=== PATIENT | female | born 1975 | race Caucasian/White ===

== ENCOUNTER 2019-02-07 10:19 | Outpatient (CLI) | payer OTHER, SELFPAY ==
--- NOTE | 2019-02-07 13:37 | DI.RAD_ITS ---
SYMPTOM/DIAGNOSIS: PAIN IN LEFT SHOULDER M25.512 LEFT SHOULDER: Five views. No bone or joint abnormality is identified. The soft tissues are unremarkable. IMPRESSION: Negative examination.
== END 2019-02-07 10:39 ==
PROVIDERS: PCP Family Medicine; Visit Provider Specialist/Technologist Athletic Trainer
DX: M25.512 Pain in left shoulder (principal)
CPT/HCPCS: 73030

== ENCOUNTER 2019-02-14 00:36 | Outpatient (CLI) | payer OTHER, SELFPAY ==
--- NOTE | 2019-02-14 14:29 | DI.MRI_ITS ---
SYMPTOMS/DIAGNOSIS: PAIN IN LEFT SHOULDER, M25.512 LEFT SHOULDER MRI: Axial T2 fat-sat, axial proton density and coronal T2 fat-sat, coronal proton density, sagittal T2 fat-sat and sagittal T1 pulse sequences were performed. There is no evidence of a tear involving the supraspinatus, infraspinatus, subscapularis or biceps tendons. The bony signal is intact. There is no evidence of a labral tear. SUMMARY: No evidence of an internal derangement. The study is within normal limits.
== END 2019-02-14 00:56 ==
PROVIDERS: PCP Family Medicine; Visit Provider Specialist/Technologist Athletic Trainer
DX: M25.512 Pain in left shoulder (principal)
CPT/HCPCS: 73221

== ENCOUNTER 2019-09-07 12:09 | Emergency (ER) | payer OTHER, SELFPAY ==
[2019-09-07 12:15] VITALS: BP 137/81; PULSE 72; RESP 18; TEMP 36.1; O2SAT 100
--- NOTE | 2019-09-07 12:33 | W.ED.GENAD ---
Discharge Plan Disposition Patient Disposition: HOME Condition: Fair Discharge Details Chief Complaint: Abd Prob Clinical Impression: Recurrent nephrolithiasis Primary Care Provider: Christel Hadley V ED Provider: Elmira Lopez Home Meds and New Rx's Prescriptions: New oxycodone 5 mg tablet 5 mg PO Q4H PRN (Reason: pain) Qty: 10 RF: 0 tamsulosin 0.4 mg capsule 0.4 mg PO DAILY Qty: 7 RF: 0 ondansetron 4 mg tablet,disintegrating 4 mg PO Q6H PRN (Reason: nausea and vomiting) Qty: 10 RF: 0 Continued dextroamphetamine-amphetamine [Adderall] 10 mg Tablet 10 mg PO DAILY RF: 0 naproxen 500 MG tablet 500 mg PO Q12H PRNRF: 0 Discharge Instructions Instructions: Kidney Stones (ED) Additional Instructions: Continue to encourage hydration. May use Tylenol and/or ibuprofen as needed for discomfort. You may use the Zofran as prescribed for any recurrent nausea or vomiting. You may use the oxycodone as prescribed if the Tylenol and ibuprofen are insufficient in alleviating her discomfort. Please take this only as prescribed do not drive will take this medication. The tamsulosin as prescribed to help with the passage of stone. You take this medication once daily, you may stop once the stone is passed. You will need follow-up with your primary care and urology. Please call Monday to schedule follow-up appointment. If you develop fever/chills, increased pain, increased pain with urination or other new/worsening symptoms please seek care urgently once again. Referrals: Christel Hadley MD [Primary Care Provider] - Taj Cruz MD [ [facility] STAFF PHYSICIAN] - Discharge Data Discharge Date/Time-TO BE ENTERED AT DEPARTURE: 09/07/19 15:21 Medical Decision Making Patient is a 43-year-old female presenting today with chief complaint of left lower quadrant pain. States the pain radiates up into the left flank. She reports it feels similar to when she had kidney stones historically. She denies any hematuria, dysuria, increased frequency urgency. No fevers or chills. States she vomited x4 this morning but states that this is potentially medication adverse reaction. States she did take some Tylenol with codeine to help with her discomfort and vomited shortly after this. Denies any change in her bowel habits. No vaginal discharge. No recent travel. Abdominal surgery significant for her section as well as surgical excision of stones x3. She has not been seen by urology here. On exam, patient appears nontoxic. No peritoneal findings on exam. No CVA tenderness with palpation. She does report that this point the pain is slightly improved but that it has oscillated since the onset of discomfort this morning. Concern for recurrent stone. No electrolyte abnormalities. No anion gap. Normal kidney function. She does have moderate amount of blood in her urinalysis. This is a contaminated specimen with moderate amount of the ileal cells. Trace leukocyte esterase and negative nitrite. Again, is denying any symptoms of urinary tract infection, is been afebrile. I do not concern for infectious stone point. FINDINGS: 1.3 cm stone in the proximal left ureter. Moderate dilatation of the left intrarenal collecting system consistent with obstructive uropathy. Mild dilatation of the right intrarenal collecting system without a specific obstructing process. Bilateral nonobstructing nephrolithiasis. Urinary bladder unremarkable with no significant postvoid residual. IMPRESSION: 1. Findings consistent with a proximal left ureteral stone resulting in obstruction of the left kidney. 2. Additional nonobstructing bilateral nephrolithiasis. Discussed these findings with the patient. Advised that she will need follow-up with urologist. Her pain is well managed at the time with IV Toradol. However, she is requesting medication to take home in the event pain spikes once again. She is able to tolerate p.o. intake time. We will place the patient on Flomax and have asked that she follow-up closely with urology. Patient may need intervention given the size of the stone. She has had these more times historically. We also discussed trying to determine the type of the stone and will send her home with a strainer. She believes that she may have done this historically but is unclear as where the results of this test would be. She was given strict return precautions, particular signs of infection and she will return with any new or worsening symptoms. I was able to consult with Dr. Cruz who agreed with the above plan advised that he will see promptly beginning of the week. HPI General Mode of arrival: ambulatory. Date/Time Provider Initiated Documentation: 09/07/19 12:33. Limitations to Documentation: no limitations. Information obtained by: patient and RN notes reviewed. History of Present Illness 43 year old F presents to the emergency department with the chief complaint of Right-sided flank pain, described as moderate and similar to prior episodes (Feels similar to previous episodes of nephrolithiasis), with intensity rated at 7. Quality is described as aching, and is localized to the back. Patient abdomen. Patient started experiencing this hour(s) and it has been constant. No relieving factors improve symptom(s), No exacerbating factors reported . Patient notes loss of appetite and nausea/vomiting; denies fever/chills. Patient did receive the following treatments prior to arrival, none Related Data Home Medications Medication Instructions Recorded Confirmed dextroamphetamine-amphetamine 10 mg PO DAILY 09/07/19 09/07/19 [Adderall] naproxen 500 mg PO Q12H PRN 09/07/19 09/07/19 ondansetron 4 mg PO Q6H PRN #10 tab 09/07/19 oxycodone 5 mg PO Q4H PRN #10 tab 09/07/19 tamsulosin 0.4 mg PO DAILY #7 cap 09/07/19 Previous Rx's Medication Instructions Recorded ondansetron 4 mg PO Q6H PRN #10 tab 09/07/19 oxycodone 5 mg PO Q4H PRN #10 tab 09/07/19 tamsulosin 0.4 mg PO DAILY #7 cap 09/07/19 Allergies Allergy/AdvReac Type Severity Reaction Status Date / Time codeine AdvReac VOMITTING Unverified 09/07/19 13:25 SHRIMP Allergy HIVES, Uncoded 09/07/19 13:25 SWELLING General Stated Complaint: Abd Prob ISRAEL: 3 Review of Systems Constitutional Constitutional: Reports as per HPI, Denies chills, Denies fatigue, Denies fever(s) and Denies headache(s) ENT Ears, Nose, Mouth, and Throat: Denies headache(s) Cardiovascular Cardiovascular: Reports as per HPI, Denies chest pain and Denies dyspnea Respiratory Respiratory: Reports as per HPI, Denies cough and Denies dyspnea Gastrointestinal Gastrointestinal: Reports as per HPI Genitourinary Genitourinary: Reports as per HPI, Denies abnormal vaginal bleeding, Denies hematuria, Denies urinary frequency, Denies dysuria, Denies pelvic pain, Reports flank pain, Denies urinary incontinence, Denies urinary hesitancy, Denies urinary urgency and Denies vaginal discharge Musculoskeletal Musculoskeletal: Reports as per HPI and Denies back pain Integumentary/Breasts Skin/Breast: Reports as per HPI and Denies rash Neurologic Neurologic: Reports as per HPI and Denies headache(s) Endocrine Endocrine: Denies fatigue [facility] Medical History Renal calculi (Chronic) Surgical History H/O lithotripsy (Acute) History of renal stent (Acute) Previous section (Chronic) Social History Smoking/Tobacco Use Status: Former Tobacco Use Alcohol Intake: current Alcohol Intake frequency: a few times a month Drug use: Occasionally Substance use type: marijuana Do you feel safe at home: Yes Do you feel safe in your relationship?: Yes Exam Const General: cooperative, healthy appearing, comfortable, no acute distress and well developed Nutritional Appearance: average body habitus and well nourished Orientation: alert and awake HENWY Head: normal to inspection Mouth: moist mucous membranes Resp Effort & Inspection: normal respiratory effort, able to speak in complete sentences and no respiratory distress Auscultation: clear to auscultation bilaterally, no rales, no rhonchi and no wheezes Cardio Rate: regular rate Rhythm: regular rhythm Heart Sounds: S1 normal and S2 normal GI Inspection: normal to inspection and no abdominal wall ecchymosis Palpation: soft, no hepatosplenomegaly, not firm, no guarding and nontender Percussion: normal to percussion Auscultation: normal bowel sounds Back/Spine/Pelvis Back: no CVA tenderness Skin General skin exam: no rashes or lesions noted Trauma: no lacerations or abrasions Neuro General: alert and awake Cognition: normal cognition Speech: speech normal Gait: normal gait Psych Appearance: grossly normal and well kempt Mental Status: mental status grossly normal Speech and Movement: speech and movement normal Course Vital Signs Vital signs: Vital Signs Temperature 36.1 C L 09/07/19 12:15 Pulse 72 09/07/19 12:15 Respiratory Rate 18 09/07/19 12:15 Blood Pressure 137/81 09/07/19 12:15 Pulse Oximetry 100 09/07/19 12:15 Temperature 36.1 C L 09/07/19 12:15 Temperature Source Skin 09/07/19 12:15 Pulse 72 09/07/19 12:15 Respiratory Rate 18 09/07/19 12:15 Blood Pressure 137/81 09/07/19 12:15 Blood Pressure Position Sitting 09/07/19 12:15 Pulse Oximetry 100 09/07/19 12:15 Oxygen Delivery Method Room Air 09/07/19 12:15 Oxygen Flow Rate 0 09/07/19 12:15 Pain Level 7 09/07/19 12:15 Lab/Test Results Lab/Test Results: POC- Test(urine) Negative
[2019-09-07 12:35] LABS: Bilirubin Negative (Negative); Blood Moderate (Negative); Clarity Cloudy (Clear); Glucose Negative (Negative); Ketones Negative (Negative); Leukocyte Esterase Trace (Negative); Nitrite Negative (Negative); Specific Gravity 1.015 (1.005-1.025); Urobilinogen 0.2 EU/dL (Up TO 0.2); pH 8.5 (5-8)
--- NOTE | 2019-09-07 12:44 | DI.US_ITS ---
EXAM: US RENAL CLINICAL HISTORY: left flank/LLQ pain, hx of stones. TECHNIQUE: Ultrasound performed using standard protocol. COMPARISON: OB US 2-3 TRIMESTER TRANSABD*P from 10/07/2013 FINDINGS: Renal ultrasound performed according to the usual protocol. Urinary bladder is unremarkable in appea kathy with pre and post void volumes 50 cc and 0 cc respectively. Lower pole of the right kidney con tains a 3 millimeter in diameter probable stone with 20 a larger fact and posterior acoustic shadowin g. Left kidney is hydronephrotic and there is a 19 millimeter diameter UPJ stone noted on the left. Non obstructing lower pole left renal calculus noted. IMPRESSION: Obstructing 19 millimeter in diameter left UPJ stone with resultant moderate left hydronephrosis Bilateral nonobstructing renal calculi also noted.
[2019-09-07] MEDS: Normal Saline 1,000 ML 1000 ML IV (12:58)
[2019-09-07] MEDS: Ketorolac 30 MG/ML VIAL IVP (12:59)
[2019-09-07] MEDS: Ondansetron 4 MG/2 ML VIAL IVP (12:59)
[2019-09-07] MEDS: Normal Saline Flush 10 ML SYR IVP (13:00)
[2019-09-07 13:02] LABS: Abs Immature Grans 0.02 k/cumm (0.0-0.09); Absolute Eosinophil Count 0.03 k/cumm (0.0-0.7); Absolute Lymphocyte Count 1.72 k/cumm (1.2-3.4); Basophils % 0.1; Eosinophils % 0.2; HCT 42.1 % (36.0-46.0); HGB 14.2 g/dL (12.0-15.5); Immature Grans % 0.1; Lymphocytes % 12.4; Mean Corp. HGB Concentration 33.7 g/dL (32.0-36.0); Mean Corpuscular Hemoglobin 29.3 pg (27.0-33.0); Mean Corpuscular Volume 86.8 fL (80-95); Mean Platelet Volume 10.4 fL (8.0-11.0); Monocytes % 5.8; Neutrophils % 81.4; Platelet Count 366 x1000/uL (130-400); RBC 4.85 m/cumm (4.00-5.20); RBC Distribution Width 12.7 % (11.7-14.6); White Blood Cell Count 13.85 k/cumm (4.4-10.8)
[2019-09-07 13:07] LABS: Absolute Basophil Count 0.01 k/cumm (0.0-0.2); Absolute Neutrophil Count 11.27 k/cumm (1.2-6.7)
[2019-09-07 13:12] VITALS: BP 121/65; PULSE 66; TEMP 36.4; O2SAT 100
[2019-09-07 13:18] LABS: ALT 17 U/L (14-59); AST 19 U/L (15-37); Albumin 4.2 g/dL (3.4-5.0); Alkaline Phosphatase 66 U/L (46-116); Anion Gap 10.2 mmol/L (3-11); BUN 17 mg/dL (7-18); Bilirubin, Total 0.5 mg/dL (0.2-1.0); CO2 27.8 mmol/L (21.0-32.0); CREATININE 0.81 mg/dL (0.55-1.02); Calcium 8.7 mg/dL (8.5-10.1); Chloride 103 mmol/L (98-107); Glucose 105 mg/dL (70-100); Potassium 3.7 mmol/L (3.5-5.1); Sodium 141 mmol/L (136-145); Total Protein 7.7 g/dL (6.4-8.2)
[2019-09-07 13:22] LABS: Bacteria Few HPF (Negative); C & S Indicated? No/Sq. Contamination; Casts Negative LPF (Negative); Crystals Moderate Amorphous HPF (Negative); Epithelial Cells Moderate HPF (Negative); Mucus Negative (Negative); WBC 0-2 HPF (0-5)
--- NOTE | 2019-09-07 15:00 | DI.VRAD_ITS ---
PROCEDURE INFORMATION: Exam: US Retroperitoneal Complete. Exam date and time: 09/07/2019 2:16 PM Clinical history: 43 years old, female; Other: Left flank and llq pain. ; Patient HX: HX of kidney stones. TECHNIQUE: Imaging protocol: Real-time ultrasound of the retroperitoneum with image documentation. Complete exam. COMPARISON: OB US 2-3 TRIMESTER TRANSABD*P 10/07/2013 3:04 PM FINDINGS: 1.3 cm stone in the proximal left ureter. Moderate dilatation of the left intrarenal collecting system consistent with obstructive uropathy. Mild dilatation of the right intrarenal collecting system without a specific obstructing process. Bilateral nonobstructing nephrolithiasis. Urinary bladder unremarkable with no significant postvoid residual. IMPRESSION: 1. Findings consistent with a proximal left ureteral stone resulting in obstruction of the left kidney. 2. Additional nonobstructing bilateral nephrolithiasis. Dictated and Authenticated by: Obdulio Frias MD. Ordering:OSBALDO Ku MD
[2019-09-07 15:20] VITALS: BP 127/71; PULSE 72; RESP 20; TEMP 35.1; O2SAT 100
--- NOTE | 2019-09-08 00:19 | NUR.NOTE ---
Nursing Note: faxed referal to urology 09/07/19
== END 2019-09-07 15:21 | disposition home or self-care (01) ==
PROVIDERS: Emergency Provider Physician Assistant; PCP Family Medicine
DX: N20.1 Calculus of ureter (principal); N20.0 Calculus of kidney; Z87.442 Personal history of urinary calculi
CPT/HCPCS: 76770; 80053; 96361; 96374; 96375; 99284; 81003; 81015; 85025; J1885; J2405

== ENCOUNTER 2019-09-19 13:45 | Outpatient (CLI) | payer OTHER, SELFPAY ==
[2019-09-19 14:12] LABS: Bilirubin Negative (Negative); Blood Moderate (Negative); Clarity Clear (Clear); Glucose Negative (Negative); Ketones 80 mg/dL (Negative); Leukocyte Esterase Large (Negative); Nitrite Negative (Negative); Specific Gravity 1.015 (1.005-1.025); Urobilinogen 0.2 EU/dL (Up TO 0.2)
[2019-09-19 14:22] LABS: Bacteria Moderate HPF (Negative); C & S Indicated? Yes; Casts Negative LPF (Negative); Crystals Negative HPF (Negative); Epithelial Cells Moderate HPF (Negative); Mucus Negative (Negative); Other Cells Rare Renal (Negative); WBC >50 HPF (0-5)
== END 2019-09-19 14:05 ==
PROVIDERS: PCP Family Medicine; Visit Provider Family Medicine
DX: R10.32 Left lower quadrant pain (principal)
CPT/HCPCS: 81003; 81015; 87086

== ENCOUNTER 2019-09-19 16:48 | Inpatient (IN) | payer OTHER, SELFPAY ==
[2019-09-19 16:50] VITALS: BP 134/73; PULSE 113; RESP 16; TEMP 37.5; O2SAT 100
--- NOTE | 2019-09-19 16:59 | DI.CT_ITS ---
EXAM: CT ABDOMEN PELVIS W CLINICAL HISTORY: known L kidney stone, LLQ pain, now new fever TECHNIQUE: COMPARISON: No exams were available for comparison FINDINGS: CT examination of the abdomen pelvis was performed with bolus infusion of 100 cc of Omnipaque 350. I mages obtained through the lung bases are unremarkable. Incidental note is made of bilateral spondyl olysis at L5. There is also small lucent lesion of T12 vertebral body with mildly sclerotic well-def ined rim consistent with benign process likely hemangioma. Liver spleen and pancreas appear normal. No biliary dilatation. Gallbladder is CT normal with minim al pericholecystic fluid. Minimal free fluid noted in the pelvis as well. Abdominal aorta is of normal diameter and no major vascular abnormality is seen. No significant abdo laura wall hernia seen. No abdominal or pelvic adenopathy. Appendix is normal. No evidence of dive rticulitis or bowel obstruction. Adrenals appear normal bilaterally. There are bilateral nonobstructing renal calculi. There is a 13 x 8 millimeter in diameter UPJ stone on the left causing obstruction with moderate to severe left hy dronephrosis. Decreased attenuation of left renal cortex noted, this may be secondary to pyelonephri tis. Perinephric stranding and periureteral stranding noted on left. There enlargement the left kid ana cristina compared to the right. Urinary bladder wall is mildly thickened, question cystitis. No addition al obstructing calculi seen. Vaginal tampon noted in place. Deck Specialist structures otherwise unremarkable. IMPRESSION: 13 millimeter in diameter left UPJ stone causing moderate to severe hydro nephrosis with findings wor risome for obstructive pyelonephritis as well. Nonobstructive renal calculi noted bilaterally.
--- NOTE | 2019-09-19 17:01 | ED.GENADUL_ITS ---
Discharge Plan Disposition Patient Disposition: [facility] INPATIENT Condition: Stable Discharge Details Chief Complaint: FlankPain Clinical Impression: Urinary tract infection, Kidney stones, SIRS (systemic inflammatory response syndrome) Primary Care Provider: Christel Hadley V ED Provider: Sven Mayberry Home Meds and New Rx's Prescriptions: No Action dextroamphetamine-amphetamine [Adderall] 10 mg Tablet 10 mg PO DAILY RF: 0 naproxen 500 MG tablet 500 mg PO Q12H PRNRF: 0 oxycodone 5 mg tablet 5 mg PO Q4H PRN (Reason: pain) Qty: 10 RF: 0 tamsulosin 0.4 mg capsule 0.4 mg PO DAILY Qty: 7 RF: 0 ondansetron 4 mg tablet,disintegrating 4 mg PO Q6H PRN (Reason: nausea and vomiting) Qty: 10 RF: 0 Medical Decision Making This is a very pleasant 43-year-old female no significant past medical history except for tubal ligation who presents today for evaluation of left sided flank and abdominal pain. 10 days ago the patient was seen and assessed, she had a CT scan showing a 1.3 cm kidney stone, at the proximal ureter. Since then she has had continued pain that is not alleviated. Over the last 24 hours she has also had fever and chills. She denies any pyuria, vaginal discharge, hematuria or increase in urinary frequency. She does admit to notable malaise. Physical exam demonstrates mild to moderate left CVA tenderness, mild left lower quadrant tenderness. No other significant abnormalities. No vaginal complaints or pelvic complaints. Signs and symptoms are certainly concerning for an infection in conjunction with her kidney stone. With a size of 1.3 cm, I doubt that it would be moving and if it would be moving it would be moving very slowly. We will start antibiotics, 2 g of cefepime, evaluate for evidence of significant infection, reimage, rehydrate and reassess. 6:20 PM Patient's laboratory work-up is returned, notable elevation in her white count at 17, lactate normal. Moderate left shift. Electrolytes stable. Renal function stable. Urinalysis clearly demonstrates evidence of infection. Still pending formal CT scan results at this time, however personal evaluation demonstrates notable fat stranding over the left kidney, the patient's 1.3 cm kidney stone seems to have not moved much at all if any. Concern for urinary infection in conjunction with stone. I contacted Dr. Cruz and discussed the case with him, he agrees on the need for stenting and removal. He recommends admission antibiotics and he will send in the morning. N.p.o. after midnight. We will contact the hospitalist for admission. 6:30 PM I spoke with the hospitalist , he agrees with the assessment and plan. I have offered to place admission orders. Still pending CT scan results formally. I have extensively reviewed the treatment plan with the patient. I have addressed all patient concerns at this time. I have also discussed the plan with the admitting physician and they agree with the current assessment and plan and have agreed to assume responsibility for the patient. All parties demonstrate verbal understanding and agreement with our assessment and plan at this time. 6:[address] scan results have returned, no evidence of abscess, clear evidence of evidence of pyelonephritis. However the CT scan results also include a litany of additional information, including mild periportal edema of the liver, which may be attributed to the pyelonephritis, of note there is no right upper quadrant pain whatsoever and her symptoms are clinically inconsistent with cholecystitis. FINDINGS: Lungs: Atelectasis or scarring at the lung bases. Trace left pleural effusion, series 4 image 11. Liver: Mild periportal edema. Gallbladder and bile ducts: No gallstones identified. Trace amount of pericholecystic fluid, series 6 image 27. Pancreas: Normal. No ductal dilation. Spleen: Normal. No splenomegaly. Adrenals: Bulky appearance to the left adrenal gland. Kidneys and ureters: Bilateral nonobstructive renal calculi. Mild right hydronephrosis with no right ureteral calculi seen. Severe left-sided hydronephrosis with a 1.3 cm calculus near the left UPJ. There is perinephric/periureteral stranding and an overall hypodense appearance to the left kidney. These findings could be seen secondary to infection or a component of renal malfunction. This stranding extends inferiorly along the left retroperitoneal musculature. Stomach and bowel: No obstruction. Appendix: No evidence of appendicitis. Intraperitoneal space: See above. No free air. Small amount of free fluid in the pelvis. Vasculature: Unremarkable. No abdominal aortic aneurysm. Lymph nodes: Unremarkable. No enlarged lymph nodes. Bladder: The urinary bladder wall prominence. This can be seen with infection or under distention. Reproductive: Heterogeneous uterus. Incidental note is made of a tampon. Bones/joints: Skeletal degenerative changes. Bilateral L5 pars defects. Possible small hemangioma in vertebral body T12, series 7 image 65. No acute fracture. Soft tissues: Tiny fat containing umbilical hernia. IMPRESSION: 1.Severe left-sided hydronephrosis with a 1.3 cm calculus near the left UPJ. There is perinephric/periureteral stranding and an overall hypodense appearance to the left kidney. These findings could be seen secondary to infection/pyelonephritis or a component of renal malfunction. This stranding extends inferiorly along the left retroperitoneal musculature. 2. Urinary bladder wall prominence. This can be seen with infection or under distention. 3.Bilateral nonobstructive renal calculi. Mild right hydronephrosis with no right ureteral calculi seen. 4. Mild periportal edema in the liver. This is a nonspecific finding that can be seen with pyelonephritis, acute hepatitis, or secondary cardiac congestion. There is a small amount of pericholecystic fluid which may be related. Correlation with any concern for cholecystitis suggested. 5. Heterogeneous appearance to the uterus which can be seen normally or with infection. Trace left pleural effusion. Small amount of free fluid in the pelvis. Other findings/details as above. Thank you for allowing us to participate in the care of your patient. Dictated and Authenticated by: Mallory Garcia MD [facility] General Date/Time Provider Initiated Documentation: 09/19/19 16:52 . [facility] Narrative: This is a pleasant 43-year-old female with no significant past medical history who presents today for evaluation of left lower abdominal/flank pain. 10 days ago the patient was seen and assessed here. At that time CT scan showed evidence of a 1.3 cm kidney stone on the left. She was otherwise well- appearing, elected to go home, but since then has had continued pain on the left-hand side, in conjunction with development of fever over the last 24 hours. She states that she continues to feel poorly, and has felt notably chilled over the last 24 hours as well. Pain is aching in nature. No radiation to the groin. Mostly located in the left flank. She denies any nausea vomiting or diarrhea. She has been taking Advil daily secondary to the pain. Past surgical history is positive for tubal ligation and 2 C-sections. She has no other complaints at this time. She denies any dysuria, hematuria, vomiting, diarrhea, vaginal discharge, history of STDs. Related Data Home Medications Medication Instructions Recorded Confirmed dextroamphetamine-amphetamine 10 mg PO DAILY 09/07/19 09/07/19 [Adderall] naproxen 500 mg PO Q12H PRN 09/07/19 09/07/19 ondansetron 4 mg PO Q6H PRN #10 tab 09/07/19 oxycodone 5 mg PO Q4H PRN #10 tab 09/07/19 tamsulosin 0.4 mg PO DAILY #7 cap 09/07/19 Previous Rx's Medication Instructions Recorded ondansetron 4 mg PO Q6H PRN #10 tab 09/07/19 oxycodone 5 mg PO Q4H PRN #10 tab 09/07/19 tamsulosin 0.4 mg PO DAILY #7 cap 09/07/19 Allergies Allergy/AdvReac Type Severity Reaction Status Date / Time codeine AdvReac VOMITTING Unverified 09/19/19 16:57 SHRIMP Allergy HIVES, Uncoded 09/19/19 16:57 SWELLING General Stated Complaint: FlankPain ISRAEL: 3 Review of Systems All systems reviewed & are unremarkable except as noted in HPI and below PFSH Social History Smoking/Tobacco Use Status: Former Tobacco Use Alcohol Intake: current Alcohol Intake frequency: a few times a month Drug use: Occasionally Substance use type: marijuana Do you feel safe at home: Yes Do you feel safe in your relationship?: Yes Exam Narrative Exam Narrative: 1.Const: Well-nourished, Well-developed, appearing stated age 2.Eyes: PERRL, no conjunctival injection, and symmetrical lids. 3.ENT: Atraumatic external nose and ears. Moist MM. Neck: Symmetric, trachea midline, No thyromegaly. 4.CVS: +S1/S2, No murmurs or gallops. Peripheral pulses 2+ and equal in all extremities. Brisk capillary refill in all extremities. 5.RESP: Unlabored respiratory effort. Clear to auscultation bilaterally. No wheezes rales or rhonchi 6.GI: Soft, notable left CVA tenderness. Negative obturator and psoas sign. No pain at McBurney's point, negative Agarwal sign. Mild left lower quadrant tenderness on palpation. No suprapubic tenderness, no pelvic pain. No guarding or rebound. 7.MSK: Normocephalic/Atraumatic, Extremities w/o deformity or ttp No cyanosis or clubbing, Normal movement of all extremities 8.Skin: Warm, Dry. No rashes or lesions. 9.Neuro: emergency department physician II-XII grossly intact. Sensation grossly intact, no focal neurologic deficits. 10.Psych: (AAO) x3. Appropriate mood and affect Course Vital Signs Vital signs: Vital Signs Temperature 37.5 C 09/19/19 16:50 Pulse 113 H 09/19/19 16:50 Respiratory Rate 16 09/19/19 16:50 Blood Pressure 134/73 09/19/19 16:50 Pulse Oximetry 100 09/19/19 16:50 Temperature 37.5 C 09/19/19 16:50 Temperature Source Skin 09/19/19 16:50 Pulse 113 H 09/19/19 16:50 Respiratory Rate 16 09/19/19 16:50 Respiratory Effort 09/19/19 16:56 Blood Pressure 134/73 09/19/19 16:50 Pulse Oximetry 100 09/19/19 16:50 Oxygen Delivery Method Room Air 09/19/19 16:50 Oxygen Flow Rate 0 09/19/19 16:50 Pain Level 4 09/19/19 16:55 Lab/Test Results Lab/Test Results: 09/19/19 16:59 Blood Blood Culture - Pending 09/19/19 16:59 Blood Blood Culture - Pending
[2019-09-19] MEDS: Normal Saline 1,000 ML 1000 ML IV (17:15)
[2019-09-19 17:16] LABS: Bilirubin Negative (Negative); Blood Small (Negative); Clarity Clear (Clear); Glucose Negative (Negative); Ketones 40 mg/dL (Negative); Leukocyte Esterase Large (Negative); Nitrite Negative (Negative); Urobilinogen 0.2 EU/dL (Up TO 0.2)
[2019-09-19 17:27] LABS: Abs Immature Grans 0.05 k/cumm (0.0-0.09); Absolute Lymphocyte Count 1.86 k/cumm (1.2-3.4); Absolute Monocyte Count 1.45 k/cumm (0.11-0.7); Basophils % 0.1; Eosinophils % 0.4; HCT 35.1 % (36.0-46.0); HGB 11.7 g/dL (12.0-15.5); Immature Grans % 0.3; Lymphocytes % 10.9; Mean Corp. HGB Concentration 33.3 g/dL (32.0-36.0); Mean Corpuscular Hemoglobin 28.5 pg (27.0-33.0); Mean Corpuscular Volume 85.4 fL (80-95); Mean Platelet Volume 9.4 fL (8.0-11.0); Monocytes % 8.5; Neutrophils % 79.8; Platelet Count 438 x1000/uL (130-400); RBC 4.11 m/cumm (4.00-5.20); RBC Distribution Width 12.1 % (11.7-14.6); White Blood Cell Count 17.07 k/cumm (4.4-10.8)
[2019-09-19] MEDS: Ketorolac 15 MG/ML VIAL IVP (17:27)
[2019-09-19 17:29] LABS: Lactate 0.8 mmol/L (0.6-1.4)
[2019-09-19] MEDS: CEFEPIME 2 GM in Normal Saline 100 ML IVPB (17:29)
[2019-09-19 17:35] LABS: Bacteria Few HPF (Negative); Crystals Negative HPF (Negative); Epithelial Cells Few HPF (Negative); Mucus Negative (Negative); Other Cells Rare Renal (Negative); WBC >50 HPF (0-5)
[2019-09-19 17:36] LABS: Absolute Basophil Count 0.02 k/cumm (0.0-0.2); Absolute Eosinophil Count 0.07 k/cumm (0.0-0.7); Absolute Neutrophil Count 13.62 k/cumm (1.2-6.7)
[2019-09-19 17:36] LABS: C & S Indicated? C&S Done As Ordered; Casts Negative LPF (Negative)
[2019-09-19 17:44] LABS: ALT 21 U/L (14-59); AST 15 U/L (15-37); Albumin 3.1 g/dL (3.4-5.0); Alkaline Phosphatase 86 U/L (46-116); Anion Gap 10.2 mmol/L (3-11); BUN 11 mg/dL (7-18); Bilirubin, Total 0.6 mg/dL (0.2-1.0); CO2 27.8 mmol/L (21.0-32.0); CREATININE 0.84 mg/dL (0.55-1.02); Calcium 8.9 mg/dL (8.5-10.1); Chloride 97 mmol/L (98-107); Glucose 90 mg/dL (70-100); Potassium 3.4 mmol/L (3.5-5.1); Sodium 135 mmol/L (136-145); Total Protein 7.9 g/dL (6.4-8.2)
[2019-09-19] MEDS: Omnipaque 350 MG/ML 100 ML BTL IJ (17:56)
[2019-09-19 18:09] VITALS: BP 127/69; PULSE 102; RESP 16; TEMP 37.1; O2SAT 97
[2019-09-19 18:39] VITALS: BP 121/71; PULSE 98; RESP 14; TEMP 37; O2SAT 97
--- NOTE | 2019-09-19 18:39 | DI.VRAD_ITS ---
PROCEDURE INFORMATION: Exam: CT Abdomen And Pelvis With Contrast Exam date and time: 09/19/2019 6:02 PM Clinical history: 43 years old, female; Abdominal pain; Patient HX: Known L kidney stone, llq pain, new fever TECHNIQUE: Imaging protocol: Computed tomography of the abdomen and pelvis with intravenous contrast. COMPARISON: US RENAL 09/07/2019 1:42 PM FINDINGS: Lungs: Atelectasis or scarring at the lung bases. Trace left pleural effusion, series 4 image 11. Liver: Mild periportal edema. Gallbladder and bile ducts: No gallstones identified. Trace amount of pericholecystic fluid, series 6 image 27. Pancreas: Normal. No ductal dilation. Spleen: Normal. No splenomegaly. Adrenals: Bulky appearance to the left adrenal gland. Kidneys and ureters: Bilateral nonobstructive renal calculi. Mild right hydronephrosis with no right ureteral calculi seen. Severe left-sided hydronephrosis with a 1.3 cm calculus near the left UPJ. There is perinephric/periureteral stranding and an overall hypodense appearance to the left kidney. These findings could be seen secondary to infection or a component of renal malfunction. This stranding extends inferiorly along the left retroperitoneal musculature. Stomach and bowel: No obstruction. Appendix: No evidence of appendicitis. Intraperitoneal space: See above. No free air. Small amount of free fluid in the pelvis. Vasculature: Unremarkable. No abdominal aortic aneurysm. Lymph nodes: Unremarkable. No enlarged lymph nodes. Bladder: The urinary bladder wall prominence. This can be seen with infection or under distention. Reproductive: Heterogeneous uterus. Incidental note is made of a tampon. Bones/joints: Skeletal degenerative changes. Bilateral L5 pars defects. Possible small hemangioma in vertebral body T12, series 7 image 65. No acute fracture. Soft tissues: Tiny fat containing umbilical hernia. IMPRESSION: 1.Severe left-sided hydronephrosis with a 1.3 cm calculus near the left UPJ. There is perinephric/periureteral stranding and an overall hypodense appearance to the left kidney. These findings could be seen secondary to infection/pyelonephritis or a component of renal malfunction. This stranding extends inferiorly along the left retroperitoneal musculature. 2. Urinary bladder wall prominence. This can be seen with infection or under distention. 3.Bilateral nonobstructive renal calculi. Mild right hydronephrosis with no right ureteral calculi seen. 4. Mild periportal edema in the liver. This is a nonspecific finding that can be seen with pyelonephritis, acute hepatitis, or secondary cardiac congestion. There is a small amount of pericholecystic fluid which may be related. Correlation with any concern for cholecystitis suggested. 5. Heterogeneous appearance to the uterus which can be seen normally or with infection. Trace left pleural effusion. Small amount of free fluid in the pelvis. Other findings/details as above. Dictated and Authenticated by: Mallory Garcia MD. Ordering:SUSAN Machuca MD
[2019-09-19] MEDS: Normal Saline 1,000 ML 150 ML IV (18:40)
--- NOTE | 2019-09-19 19:08 | NUR.NOTE ---
pt given chicken broth Nursing Note:
[2019-09-19 19:22] VITALS: BP 121/71; PULSE 98; RESP 14; TEMP 37; O2SAT 97
--- NOTE | 2019-09-19 20:41 | HPE_ITS ---
Date of service: 09/19/19 Time of Service: 20:41 Assessment and Plan Assessment and plan (1) Pyelonephritis of left kidney: Status: Acute Assessment and plan: Aggressive IV fluids and broad-spectrum antibiotics including vancomycin and meropenem as per Up-To-Date clinical pathway as well as per recommendations from [place] antimicrobial guide. Urology consultation for cystoscopy ureteroscopy in the morning with stent placement. Continue antipyretics, NSAIDs, narcotic analgesics as needed (2) Obstructive uropathy: Status: Acute Assessment and plan: as above. NPO after midnight, continue iv fluid hydration. Urology consultation for cystoureteroscopy and ureteral stent placement in the a.m. Obtain urine for stone analysis for decisions regarding future preventative treatment (3) Renal calculi: Status: Chronic Assessment and plan: As above. I recommended the patient that she discontinue her Diet Coke intake as this is a of the risk factors for future nephrolithiasis. History of Present Illness History of Present Illness Chief Complaint: Fever, chills, back pain Na rrative: 43-year-old female with past medical history of nephrolit hiasis previously treated with renal stents as well as extracorporeal shockwave lithotripsy approximately 10 years ago. Patient presented to the emergency department with acute onset of fevers that began yesterday associated with chills but no nausea or vomiting and no gross hematuria or dysuria. She was diagnosed with recurrent nephrolithiasis 12 days ago when she was seen and treated in the emergency room. She was prescribed oxycodone and Flomax and ondansetron and was referred for outpatient evaluation by urology. Findings at that time was a 1.3 cm stone in the proximal left ureter with moderate dilatation of her left intrarenal collecting system and mild dilatation of the right intrarenal without a specific obstructing process. There were additional nonobstructing bilateral nephrolithiasis. She states since September 07 she has been taking Advil couple times a day and trying to increase her water intake and she is cut out her Diet Coke intake. But she started with fever and chills yesterday along with worsening left-sided back pain with radiation into the left upper abdomen. Diagnostic work-up this evening in the emergency room included a CT scan of the abdomen and pelvis with contrast which demonstrated severe left- sided hydronephrosis with a 1.3 cm calculus near the left UPJ along with perinephric and periureteral stranding and overall hypodense appearance of the left kidney consistent with pyelonephritis. There is a prominent urinary bladder wall. Bilateral nonobstructive renal calculi are seen with mild right hydronephrosis but no right ureteral calculi. Laboratory studies showed a leukocytosis of 17,000 with a leftward shift. Urinalysis demonstrated small amount of blood along with large leukocyte esterase and greater than 50 white cells with a few bacteria. Chemistry profile showed normal renal function with a BUN of 11 and creatinine 0.84 and normal transaminases. Potassium was low at 3.4. [id number] urine test was negative. Treatment in the emergency room included a liter of IV fluids along with obtaining urine and blood cultures and initiation of cefepime [address] Sven Mayberry, emergency room attending, contacted Dr. Cruz, urologist, for consultation. Dr. Cruz indicated that he would plan for cystoscopy ureterosc opy with ureteral stent in the morning. I broaden the patient's antibiotic coverage as per recommendations from the up-to-date clinical pathway for complicated UTIs including pyelonephritis with obstruction. This is also recommended by [facility] antimicrobial guide lines. Guidelines recommend inclu ding vancomycin for coverage of enterococci as well as use of a carboplatinum for coverage of ESBL Enterobacteriaceae as well as Pseudomonas. Review of Systems Narrative: Review of systems as per HPI Constitutional Constitutional: Reports chills and Reports fever(s) Eyes Eyes: Reports system reviewed and no additional complaints, except as docu ENT Ears, Nose, Mouth, and Throat: Reports system reviewed and no additional complaints, except as docu Cardiovascular Cardiovascular: Reports system reviewed and no additional complaints, except as docu Respiratory Respiratory: Reports system reviewed and no additional complaints, except as docu Gastrointestinal Gastrointestinal: Reports abdominal pain (Left upper quadrant.), Denies nausea and Denies vomiting Genitourinary Genitourinary: Denies hematuria, Reports urinary frequency, Denies difficulty voiding, Denies post void dribbling, Denies dysuria, Denies pelvic pain, Reports flank pain, Denies urinary incontinence, Denies urinary hesitancy and Denies u rinary urgency Musculoskeletal Musculoskeletal: Reports as per HPI Integumentary/Breasts Skin/Breast: Reports system reviewed and no additional complaints, except as docu Neurologic Neurologic: Reports system reviewed and no additional complaints, except as docu Psychiatric Psychiatric: Reports system reviewed and no additional complaints, except as docu Endocrine Endocrine: Reports system reviewed and no additional complaints, except as docu Hematologic/Lymphatic Hematologic/Lymphatic: Reports system reviewed and no additional complaints, except as docu Allergic/Immunologic Allergic/Immunologic: Reports system reviewed and no additional complaints, except as docu PFSH Medical History (Updated 09/19/19 @ 21:39 by Andrew Rajput) Gestational diabetes mellitus (Resolved 09/03/13) GTT: 74, 172, 171, 163 on 09/03 Renal calculi (Chronic) Supervision of other normal (Resolved 06/03/13) Surgical History (Updated 09/19/19 @ 21:04 by Andrew Rajput) H/O lithotripsy (Acute) History of renal stent (Acute) Previous section (Chronic) Status post repeat low transverse section (Resolved 11/15/13) Social History Smoking/Tobacco Use Status: Former Tobacco Use Alcohol Intake: current Alcohol Intake frequency: a few times a month Drug use: Occasionally Substance use type: marijuana Do you feel safe at home: Yes Do you feel safe in your relationship?: Yes Meds Home Medications and Allergies Home Medications Medication Instructions Recorded Confirmed Type dextroamphetamine-amphetamine 10 mg PO DAILY 09/07/19 09/19/19 History [Adderall] naproxen 500 mg PO Q12H PRN 09/07/19 09/19/19 History ondansetron 4 mg PO Q6H PRN #10 tab 09/07/19 09/19/19 Rx oxycodone 5 mg PO Q4H PRN #10 tab 09/07/19 09/19/19 Rx Allergies Allergy/AdvReac Type Severity Reaction Status Date / Time codeine AdvReac VOMITTING Unverified 09/19/19 16:57 SHRIMP Allergy HIVES, Uncoded 09/19/19 16:57 SWELLING Exam Const General: cooperative, no acute distress and well groomed Nutritional Appearance: average body habitus and well nourished Orientation: alert, awake and oriented x3 Neck Neck: normal visual inspection, full ROM, no lymphadenopathy, trachea midline and supple Thyroid: thyroid normal Carotids: normal carotid upstroke Lymphatic: no lymphadenopathy noted Chest Chest: normal inspection of the chest and normal palpation of entire chest wall Resp Effort & Inspection: normal respiratory effort and able to speak in complete sentences Auscultation: clear to auscultation bilaterally Percussion: percussion normal Cardio Jugular venous pressure: no JVD Palpation: normal PMI Rate: regular rate Rhythm: regular rhythm Heart Sounds: S1 normal, S2 normal and normal, physiologic split S2 Pulses: normal peripheral pulses GI Inspection: normal to inspection Palpation: soft, no hepatosplenomegaly and nontender Percussion: normal to percussion Auscultation: normal bowel sounds General: bladder normal to inspection, bladder normal to palpation, bimanual zelda al exam abnormal and CVA tenderness on the left Bimanual Exam- Vagina & Uterus: bladder normal to palpation Back/Spine/Pelvis Cervical Spine: normal cervical lordosis and cervical ROM normal Thoracic/Lumbar Spine: thoracic and lumbar spine normal to inspection and thoraco-lumbar ROM normal Skin General skin exam: no rashes or lesions noted, elasticity normal and turgor normal Lesions: no lesions Rashes: no rashes Trauma: no lacerations or abrasions Hair: normal Nails: normal Neuro General: alert, awake, oriented x3, moves all extremities and no focal motor deficits Cognition: normal cognition Speech: speech normal Motor: muscle tone normal throughout, strength 5/5 throughout, no pronator drift, no movement abnormalities noted and no fasciculations Sensory Exam: no sensory deficits noted Extrem General: normal to inspection, full ROM, normal capillary refill, no joint enlargement, no clubbing, cyanosis or edema, no pedal edema and no calf tenderness Psych Appearance: grossly normal Mental Status: mental status grossly normal Speech and Movement: speech and movement normal Mood: congruent mood Affect: normal affect Attitude: cooperative Thought Process: normal Thought Content: normal Insight: insight good Judgment: judgment good Results Imaging Abdomen CT scan report/results: report reviewed Labs Result diagrams: 09/19/19 17:10 09/19/19 17:10 Labs: Laboratory Results - last 24 hr 09/19/19 09/19/19 09/19/19 17:00 17:10 17:10 WBC 17.07 H RBC 4.11 Hgb 11.7 L Hct 35.1 L MCV 85.4 MCH 28.5 MCHC 33.3 RDW 12.1 Plt Count 438 H MPV 9.4 Immature Gran % 0.3 Neutrophils % 79.8 Lymphocytes % 10.9 Monocytes % 8.5 Eosinophils % 0.4 Basophils % 0.1 Absolute Neutrophils 13.62 H Absolute Lymphocytes 1.86 Absolute Monocytes 1.45 H Absolute Eosinophils 0.07 Absolute Basophils 0.02 Sodium 135 L Potassium 3.4 L Chloride 97 L Carbon Dioxide 27.8 Anion Gap 10.2 BUN 11 Creatinine 0.84 Estimated GFR/1.73 m2 >= 60.00 Glucose 90 Lactate Calcium 8.9 Total Bilirubin 0.6 AST 15 ALT 21 Alkaline Phosphatase 86 Total Protein 7.9 Albumin 3.1 L Urine Color Yellow Urine Clarity Clear Urine pH 7.0 Ur Specific [place] 1.010 Urine Protein Negative Urine Ketones 40 H Urine Blood Small H Urine Nitrite Negative Urine Bilirubin Negative Urine Urobilinogen 0.2 Ur Leukocyte Esterase Large H Urine RBC 3-5 H Urine WBC >50 Ur Epithelial Cells Few Urine Crystals Negative Urine Bacteria Few Urine Casts Negative Urine Mucus Negative Urine Other Rare renal Ur Culture Indicated? C&s done as ordered Urine Glucose Negative 09/19/19 17:10 WBC RBC Hgb Hct MCV MCH MCHC RDW Plt Count MPV Immature Gran % Neutrophils % Lymphocytes % Monocytes % Eosinophils % Basophils % Absolute Neutrophils Absolute Lymphocytes Absolute Monocytes Absolute Eosinophils Absolute Basophils Sodium Potassium Chloride Carbon Dioxide Anion Gap BUN Creatinine Estimated GFR/1.73 m2 Glucose Lactate 0.8 Calcium Total Bilirubin AST ALT Alkaline Phosphatase Total Protein Albumin Urine Color Urine Clarity Urine pH Ur Specific [place] Urine Protein Urine Ketones Urine Blood Urine Nitrite Urine Bilirubin Urine Urobilinogen Ur Leukocyte Esterase Urine RBC Urine WBC Ur Epithelial Cells Urine Crystals Urine Bacteria Urine Casts Urine Mucus Urine Other Ur Culture Indicated? Urine Glucose Last Vital Signs Temp 37 C 09/19/19 19:22 Pulse 98 H 09/19/19 19:22 Resp 14 09/19/19 19:22 BP 121/71 09/19/19 19:22 Pulse Ox 97 09/19/19 19:22
[2019-09-19] MEDS: Ondansetron 4 MG/2 ML VIAL IVP (20:54)
[2019-09-19] MEDS: ACETAMINOPHEN 1,000 MG/100 ML BTL 400 MG IVPB (20:54)
[2019-09-19] MEDS: Normal Saline Flush 10 ML SYR IVP ×3 (20:54→22:56)
[2019-09-19 21:03] VITALS: BP 109/72; PULSE 100; RESP 18; TEMP 36.4; O2SAT 98
[2019-09-19] MEDS: MEROPENEM 1 GM in Normal Saline 100 ML IVPB (21:40)
[2019-09-19] MEDS: VANCOMYCIN 1,000 MG in Normal Saline 250 ML 250 MG IV (22:56)
[2019-09-20] VITALS (8 sets, daily range): BP systolic 97–128; BP diastolic 61–81; PULSE 69–88; RESP 16–18; TEMP 36–37.6; O2SAT 96–100
--- NOTE | 2019-09-20 00:01 | NUR.NOTE ---
Patient was admitted the Med-Surg unit this evening from the ER. She is alert, oriented x 3. Pt gave history of fever, chills and back pain starred since yesterday, denies any nausea or vomiting, or haematuria. Stated she has had past history of nephrolithiasis previously and treated with renal stents has well as ectracorporeal shockwaves lithrotripsy over 10 years ago. She was diagnosed with recurrent nephrolithiasis 12 days ago when she was treated in the ER. Pt is NPO after MN and she is made aware of same
[2019-09-20] MEDS: POTASSIUM CHLORIDE/0.9% NACL 1,000 ML 150 MEQ IV (00:18)
[2019-09-20] MEDS: Acetaminophen 325 MG TAB PO (00:18)
[2019-09-20] MEDS: ACETAMINOPHEN 1,000 MG/100 ML BTL 400 MG IVPB ×3 (02:46→13:34)
[2019-09-20] MEDS: MEROPENEM 1 GM in Normal Saline 100 ML IVPB ×3 (04:00→20:33)
--- NOTE | 2019-09-20 06:51 | W.UROLOGYCON ---
Date of service: 09/20/19 Time of Service: 06:52 Assessment and Plan Assessment and plan (1) Renal calculi: Status: Chronic Assessment and plan: Clinically, she is starting to show signs of infection, so I have recommended drainage of her hydronephrotic kidney along with her antibiotics. We will attempt to place a stent cystoscopically. I explained that if the stone is impacted and we are unable to get passed the stone today, she may need to be transferred to a larger facility with interventional radiology services so that a percutaneous nephrostomy tube can be placed. I also explained that we will not be dealing with her stone during this hospitalization. I would expect that she will be able to go home and complete her antibiotic treatment. We will then bring her back to the hospital for a planned definitive stone treatment. Given the size and location of the stone, I would suggest a flexible ureteroscopy and holmium laser procedure. I have contacted the operating room so that she can be scheduled for today. They will contact us once the time has been decided. (2) Pyelonephritis of left kidney: Status: Acute History of Present Illness History of Present Illness Chief Complaint: Left ureteral stone Narrative: This is a 43-year-old woman who has a long history of kidney stone disease. She does not recall what her stones chemical composition may have been in the past. She does not believe that her stones were uric acid or struvite. She does recall having had extracorporeal shockwave lithotripsy as well as ureteroscopic procedures in the past. The surgeries were done at [facility] [place]. I do not have the records at this time, but I will be asking my office to obtain these records. The patient presented to the emergency room last weekend with flank pain. She was found to have a large left proximal ureteral stone but she had no signs of sepsis at that time. She was discharged and close follow-up was recommended. She has not been seen in my office, but my staff has been in phone contact with the patient. She told us that she was doing quite well so she was scheduled for an appointment for next week I believe. She came back into the emergency room yesterday with persistent flank pain but this time it was associated with fevers and chills. Her white blood count had increased and we now have concerns that she may be becoming septic. She was admitted for IV fluid, antibiotics and drainage of her left kidney. Through the night, she did reasonably well. She did not spike any fevers. Her pain was reasonably well controlled. Her biggest complaint this morning is a headache. Review of Systems Narrative: She had chills yesterday afternoon. Her maximum temperature at home was 100 degrees orally, but this was while she was taking NSAIDs. No vision change or dysphasia No diabetes or thyroid No shortness of breath, cough or hemoptysis No chest pain or palpitations No nausea, vomiting, hepatitis, ulcers, jaundice, diarrhea or constipation No seizures, strokes or peripheral neuropathy No bleeding disorders or anemia No gout or arthralgia [facility] Medical History (Updated 09/19/19 @ 21:39 by Andrew Rajput) Gestational diabetes mellitus (Resolved 09/03/13) GTT: 74, 172, 171, 163 on 09/03 Renal calculi (Chronic) Supervision of other normal (Resolved 06/03/13) Surgical History (Updated 09/19/19 @ 21:04 by Andrew Rajput) H/O lithotripsy (Acute) History of renal stent (Acute) Previous section (Chronic) Status post repeat low transverse section (Resolved 11/15/13) Social History Smoking/Tobacco Use Status: Former Tobacco Use Alcohol Intake: current Alcohol Intake frequency: a few times a month Drug use: Occasionally Substance use type: marijuana Do you feel safe at home: Yes Do you feel safe in your relationship?: Yes Exam Narrative Exam Narrative: She does not appear toxic at this point in time. Her vital signs are documented elsewhere Her neck is supple Her lungs are clear Her abdomen is soft with no masses. Cardiac exam shows a regular rate and rhythm She is awake and alert. I reviewed her CT scans on the PACS system. There is a large left proximal ureteral stone with hydronephrosis behind it. There are few nonobstructing stones bilaterally. Results Last Vital Signs Temp 36.5 C 09/20/19 04:30 Pulse 84 09/20/19 04:30 Resp 18 09/20/19 04:30 BP 97/61 L 09/20/19 04:30 Pulse Ox 96 09/20/19 04:30 Labs Result diagrams: 09/19/19 17:10 09/19/19 17:10 Labs: Laboratory Results - last 24 hr 09/19/19 09/19/19 09/19/19 17:00 17:10 17:10 WBC 17.07 H RBC 4.11 Hgb 11.7 L Hct 35.1 L MCV 85.4 MCH 28.5 MCHC 33.3 RDW 12.1 Plt Count 438 H MPV 9.4 Immature Gran % 0.3 Neutrophils % 79.8 Lymphocytes % 10.9 Monocytes % 8.5 Eosinophils % 0.4 Basophils % 0.1 Absolute Neutrophils 13.62 H Absolute Lymphocytes 1.86 Absolute Monocytes 1.45 H Absolute Eosinophils 0.07 Absolute Basophils 0.02 Sodium 135 L Potassium 3.4 L Chloride 97 L Carbon Dioxide 27.8 Anion Gap 10.2 BUN 11 Creatinine 0.84 Estimated GFR/1.73 m2 >= 60.00 Glucose 90 Lactate Calcium 8.9 Total Bilirubin 0.6 AST 15 ALT 21 Alkaline Phosphatase 86 Total Protein 7.9 Albumin 3.1 L Urine Color Yellow Urine Clarity Clear Urine pH 7.0 Ur Specific [place] 1.010 Urine Protein Negative Urine Ketones 40 H Urine Blood Small H Urine Nitrite Negative Urine Bilirubin Negative Urine Urobilinogen 0.2 Ur Leukocyte Esterase Large H Urine RBC 3-5 H Urine WBC >50 Ur Epithelial Cells Few Urine Crystals Negative Urine Bacteria Few Urine Casts Negative Urine Mucus Negative Urine Other Rare renal Ur Culture Indicated? C&s done as ordered Urine Glucose Negative 09/19/19 17:10 WBC RBC Hgb Hct MCV MCH MCHC RDW Plt Count MPV Immature Gran % Neutrophils % Lymphocytes % Monocytes % Eosinophils % Basophils % Absolute Neutrophils Absolute Lymphocytes Absolute Monocytes Absolute Eosinophils Absolute Basophils Sodium Potassium Chloride Carbon Dioxide Anion Gap BUN Creatinine Estimated GFR/1.73 m2 Glucose Lactate 0.8 Calcium Total Bilirubin AST ALT Alkaline Phosphatase Total Protein Albumin Urine Color Urine Clarity Urine pH Ur Specific [place] Urine Protein Urine Ketones Urine Blood Urine Nitrite Urine Bilirubin Urine Urobilinogen Ur Leukocyte Esterase Urine RBC Urine WBC Ur Epithelial Cells Urine Crystals Urine Bacteria Urine Casts Urine Mucus Urine Other Ur Culture Indicated? Urine Glucose
[2019-09-20 07:25] LABS: Abs Immature Grans 0.02 k/cumm (0.0-0.09); Absolute Basophil Count 0.02 k/cumm (0.0-0.2); Absolute Eosinophil Count 0.14 k/cumm (0.0-0.7); Absolute Monocyte Count 1.01 k/cumm (0.11-0.7); Basophils % 0.2; Eosinophils % 1.4; HCT 33.6 % (36.0-46.0); HGB 10.9 g/dL (12.0-15.5); Immature Grans % 0.2; Lymphocytes % 18.6; Mean Corp. HGB Concentration 32.4 g/dL (32.0-36.0); Mean Corpuscular Hemoglobin 28.4 pg (27.0-33.0); Mean Corpuscular Volume 87.5 fL (80-95); Mean Platelet Volume 9.6 fL (8.0-11.0); Monocytes % 9.9; Neutrophils % 69.7; Platelet Count 379 x1000/uL (130-400); RBC 3.84 m/cumm (4.00-5.20); RBC Distribution Width 12.2 % (11.7-14.6); White Blood Cell Count 10.24 k/cumm (4.4-10.8)
[2019-09-20 07:29] LABS: Absolute Neutrophil Count 7.14 k/cumm (1.2-6.7)
[2019-09-20 07:38] LABS: Anion Gap 11.7 mmol/L (3-11); BUN 10 mg/dL (7-18); CO2 23.3 mmol/L (21.0-32.0); CREATININE 0.76 mg/dL (0.55-1.02); Calcium 8.2 mg/dL (8.5-10.1); Chloride 108 mmol/L (98-107); Glucose 68 mg/dL (70-100); Potassium 3.8 mmol/L (3.5-5.1); Sodium 143 mmol/L (136-145)
[2019-09-20] MEDS: Ondansetron 4 MG/2 ML VIAL IVP (08:17)
[2019-09-20] MEDS: Normal Saline Flush 10 ML SYR IVP (08:17)
--- NOTE | 2019-09-20 08:43 | DI.RAD_ITS ---
EXAM: XR RETROGRADE IN OR INDICATION: PYELONENEPHRITIS LEFT KIDNEY. COMPARISON: No exams were available for comparison TECHNIQUE: 2D digital imaging was performed. FINDINGS: C-arm fluoroscopy was utilized by Dr. Cruz. Hard copy shows retrograde catheterization of left uret er with a left ureteral stone noted at the UPJ junction. Please see Dr. Cruz's procedure note. FLUORO TIME 30.2 seconds
[2019-09-20] MEDS: Lactated Ringers 1,000 ML 30 ML IV (09:10)
[2019-09-20] MEDS: Omnipaque 300 MG/ML 50 ML BTL (09:22)
[2019-09-20] MEDS: Lidocaine 2% Jelly 11 ML SYR (09:22)
[2019-09-20] MEDS: POTASSIUM CHLORIDE/D5-0.9%NACL 1,000 ML 100 MEQ IV ×2 (10:12→23:12)
--- NOTE | 2019-09-20 11:21 | ROE_ITS ---
DATE OF PROCEDURE: September 20, 2019 PREOPERATIVE DIAGNOSIS: Left ureteral stone with pyelonephritis. POSTOPERATIVE DIAGNOSIS: Same. PROCEDURE: Cystoscopy; left retrograde pyelogram; insert left ureteral stent; selective urine cultur e taken from left kidney. SURGEON: Taj Cruz M.D. ANESTHESIA: General. COMPLICATIONS: None. ESTIMATED BLOOD LOSS: Minimal. HISTORY: This is a 43-year-old woman who has a long history of recurrent kidney stones. She's had m ultiple procedures in the past. She presented to our Emergency Room about a week ago with a finding of a 13 mm left proximal ureteral stone. She was discharged at that time with outpatient follow-up. She returned to the ER last evening with chills and low-grade fevers. There was concern for pyelonep hritis and an infected system. She was hospitalized with cultures pending and IV antibiotics given. She presents now for stent placement to drain the left kidney. OPERATIVE REPORT: The patient was brought to the Operating Room on 09/20/19. After successful induc tion of general anesthesia, she was placed in the dorsal lithotomy position. Her genitalia was prepp ed and draped. 2% Xylocaine jelly was instilled into the urethra to act as a local anesthetic. A 22 Wallisian rigid cy stoscope was passed through the urethra into the bladder. The left ureteral orifice was visualized. The orifice was cannulated with a 6 Wallisian access catheter. A retrograde film was obtained by injecting Omnipaque through the access catheter under fluoroscopic guidance. A large stone was outlined in the proximal ureter. A small amount of contrast was able to pass the stone and be seen in a dilated upper collecting system. A Glidewire was then advanced through the access catheter and I was able to pass the wire above the l evel of the stone. I then advanced the access catheter over the wire and removed the wire. Once the access catheter was within the dilated collecting system, we noted a hydronephrotic drip. We collec karrie urine directly from the left kidney to send for culture and sensitivity. Once the specimen was collected, I passed the wire back through the access catheter and removed the c atheter. I then passed a 6 Wallisian variable-length ureteral stent over the wire. I positioned the pr oximal end up in the renal pelvis and the distal end within the bladder. The positioning of the sten t was confirmed both fluoroscopically and cystoscopically. The patient tolerated this procedure well. There were no complications. Because of the suspected infection, we did not attempt to deal with her stone at this point in time. I would expect that she will be ultimately discharged on oral antibiotics and she will return for an outpatient elective flexible ureteroscopy with holmium laser of her proximal ureteral stone. cc: Christel Hadley M.D.
--- NOTE | 2019-09-20 11:53 | PHARADMIT ---
Admission Pharmacy Clinical Review KIDNEY STONE, UTI, SEPSIS Code Status Full Code Current Weight Wgt-58.1 kg Renally Cleared and Narrow Therapeutic Index Meds CrCl~65.8 mL/min Meds-OK QTc Value / Action Taken none BP Control, Fever BP-112/73 Tmax-36.4C Electrolytes reviewed Na-143 K+3.8 DVT Prophylaxis TEDs, SCDs Opiate Usage / Scheduled Bowel Regimen Ordered Yes No (NPO) in OR Plt/SCr for Heparin / Enoxaparin Plts-379 SCr-0.76 INR for Warfarin na H/H stable, WBC/Bands H&H- 10.9/33.6 WBC- 10.24 Antibiotic appropriateness Merpenem,Vancomycin Cultures and Sensitivities Urine, Blood-Pending Surgical ABX d/c within 24 hr NA DM control / Insulin Dosing BG-68 Heart Failure (Check EF%) (ARIEL's, B-Block, Diuretics) none IV to PO Switch No Home Meds Reviewed Yes Home Meds Not Ordered Adderall, Naprosyn, Oxycodone, Comments
--- NOTE | 2019-09-20 12:47 | W.PM.PROGNOT ---
Date of Service Date of service: 09/20/19 Time of Service: 12:47 Assessment and Plan Assessment and plan (1) Pyelonephritis of left kidney: Status: Acute Assessment and plan: in setting of obstructive nephrolithiasis. S/p cysto/stent 09/20/19 - POD 0, doing well. Continue broad spectrum antibiotics until intraop urine cultures are available. Unfortunatelly, last night's cultures are mixed/contaminated. (2) Obstructive uropathy: Status: Acute Assessment and plan: S/p cysto/stent. Will need to follow up with Dr Cruz in 1 week in the office. (3) Renal calculi: Status: Chronic Assessment and plan: As above - follow up with Dr Cruz as outpatient for a planned laser lithotripsy. (4) Hypoglycemia: Status: Acute Assessment and plan: Likely related to patient's pyelonephritis. Continue D5 fluids and empiric antbiotics. (5) DVT prophylaxis: Status: Acute Assessment and plan: Lovenox SC (6) Discharge planning issues: Status: Acute Assessment and plan: Full code. Expected to be discharged home tomorrow once culture data is available. Patient was advised that leaving today would be against medical advice. Subjective Subjective Interval history since last seen: Ms Soni is s/p cystoscopy and left ureteral stent insertion this morning which she tolerated well. She feels so well right now she thinks she can go home. We talked about the fact that I do not know the results of her urine culture yet, and that her blood pressure were low this morning as was her blood sugar, which could all be pointing to infection, so it would be good if she could stay until we knew which antibiotic her UTI responded to. Original Urine C&S just got reported as mixed jim, but the intraop urine cultures were obtained this morning and are pending. She denies dizziness, chest pain, shortness of breath, nausea, vomiting. Exam Narrative Exam Narrative: Genera: very pleasant middle-aged female who admittedly does not look septic/toxic HEENT: EOMI, MMM Heart: RRR, no m/r/g Lungs: CTAB GI: abdomen is soft, nontender, nondistended Extremities: no e/c/c BLE's Objective Objective Clinical Data: Abnormal lab results 09/19/19 09/19/19 09/19/19 Range/Units 17:00 17:10 17:10 WBC 17.07 H (4.4-10.8) k/cumm RBC (4.00-5.20) m/cumm Hgb 11.7 L (12.0-15.5) g/dL Hct 35.1 L (36.0-46.0) % Plt Count 438 H (130-400) x1000/uL Absolute Neutrophils 13.62 H (1.2-6.7) k/cumm Absolute Monocytes 1.45 H (0.11-0.7) k/cumm Sodium 135 L (136-145) mmol/L Potassium 3.4 L (3.5-5.1) mmol/L Chloride 97 L (98-107) mmol/L Anion Gap (3-11) mmol/L Glucose (70-100) mg/dL Calcium (8.5-10.1) mg/dL Albumin 3.1 L (3.4-5.0) g/dL Urine Ketones 40 H (Negative) mg/dL Urine Blood Small H (Negative) Ur Leukocyte Esterase Large H (Negative) Urine RBC 3-5 H (0-2) 09/20/19 09/20/19 Range/Units 07:00 07:00 WBC (4.4-10.8) k/cumm RBC 3.84 L (4.00-5.20) m/cumm Hgb 10.9 L (12.0-15.5) g/dL Hct 33.6 L (36.0-46.0) % Plt Count (130-400) x1000/uL Absolute Neutrophils 7.14 H (1.2-6.7) k/cumm Absolute Monocytes 1.01 H (0.11-0.7) k/cumm Sodium (136-145) mmol/L Potassium (3.5-5.1) mmol/L Chloride 108 H (98-107) mmol/L Anion Gap 11.7 H (3-11) mmol/L Glucose 68 L (70-100) mg/dL Calcium 8.2 L (8.5-10.1) mg/dL Albumin (3.4-5.0) g/dL Urine Ketones (Negative) mg/dL Urine Blood (Negative) Ur Leukocyte Esterase (Negative) Urine RBC (0-2) Vital Signs Temperature 36.0 C L 09/20/19 11:00 Temperature Source Tympanic 09/20/19 11:00 Pulse 83 09/20/19 11:00 Pulse Rhythm Regular 09/19/19 21:03 Respiratory Rate 18 09/20/19 11:00 Respiratory Effort Non-Labored 09/20/19 03:41 Respiratory Depth Normal 09/20/19 03:41 Respiratory Pattern Normal 09/20/19 03:41 Blood Pressure 126/81 09/20/19 11:00 Pulse Oximetry 100 09/20/19 11:00 Oxygen Delivery Method Room Air 09/20/19 11:00 Oxygen Flow Rate 0 09/20/19 11:00 Pain Level 0 09/20/19 11:00 Comment 09/20/19 04:30 Intake & Output 09/19/19 09/20/19 09/20/19 23:59 11:59 23:59 Intake Total 1550 / 1550 2500 / 2571 71 / 2571 Output Total 800 / 800 900 / 900 Balance 750 / 750 1600 / 1671 71 / 1671 Weight 56.699 kg 58.1 kg Intake: IV 1550 / 1550 2500 / 2571 71 / 2571 Output: Urine 800 / 800 900 / 900 Other: Urine Color Pale Yellow Yellow Urine Appearance Clear Clear Urine Odor None None Strain Urine Result Negative-No Stones/Gravel Voiding Methods Toilet Toilet Laboratory Results WBC 10.24 k/cumm (4.4-10.8) D 09/20/19 07:00 RBC 3.84 m/cumm (4.00-5.20) L 09/20/19 07:00 Hgb 10.9 g/dL (12.0-15.5) L 09/20/19 07:00 Hct 33.6 % (36.0-46.0) L 09/20/19 07:00 MCV 87.5 fL (80-95) 09/20/19 07:00 MCH 28.4 pg (27.0-33.0) 09/20/19 07:00 MCHC 32.4 g/dL (32.0-36.0) 09/20/19 07:00 RDW 12.2 % (11.7-14.6) 09/20/19 07:00 Plt Count 379 x1000/uL (130-400) 09/20/19 07:00 MPV 9.6 fL (8.0-11.0) 09/20/19 07:00 Immature Gran % 0.2 09/20/19 07:00 Neutrophils % 69.7 09/20/19 07:00 Lymphocytes % 18.6 09/20/19 07:00 Monocytes % 9.9 09/20/19 07:00 Eosinophils % 1.4 09/20/19 07:00 Basophils % 0.2 09/20/19 07:00 Absolute Neutrophils 7.14 k/cumm (1.2-6.7) H 09/20/19 07:00 Absolute Lymphocytes 1.90 k/cumm (1.2-3.4) 09/20/19 07:00 Absolute Monocytes 1.01 k/cumm (0.11-0.7) H 09/20/19 07:00 Absolute Eosinophils 0.14 k/cumm (0.0-0.7) 09/20/19 07:00 Absolute Basophils 0.02 k/cumm (0.0-0.2) 09/20/19 07:00 Sodium 143 mmol/L (136-145) 09/20/19 07:00 Potassium 3.8 mmol/L (3.5-5.1) 09/20/19 07:00 Chloride 108 mmol/L (98-107) H 09/20/19 07:00 Carbon Dioxide 23.3 mmol/L (21.0-32.0) 09/20/19 07:00 Anion Gap 11.7 mmol/L (3-11) H 09/20/19 07:00 BUN 10 mg/dL (7-18) 09/20/19 07:00 Creatinine 0.76 mg/dL (0.55-1.02) 09/20/19 07:00 Estimated GFR/1.73 m2 >= 60.00 (mL/min/1.73m2) 09/20/19 07:00 Glucose 68 mg/dL (70-100) L 09/20/19 07:00 Lactate 0.8 mmol/L (0.6-1.4) 09/19/19 17:10 Calcium 8.2 mg/dL (8.5-10.1) L 09/20/19 07:00 Total Bilirubin 0.6 mg/dL (0.2-1.0) 09/19/19 17:10 AST 15 U/L (15-37) 09/19/19 17:10 ALT 21 U/L (14-59) 09/19/19 17:10 Alkaline Phosphatase 86 U/L (46-116) 09/19/19 17:10 Total Protein 7.9 g/dL (6.4-8.2) 09/19/19 17:10 Albumin 3.1 g/dL (3.4-5.0) L 09/19/19 17:10 Urine Color Yellow (Yellow) 09/19/19 17:00 Urine Clarity Clear (Clear) 09/19/19 17:00 Urine pH 7.0 (5-8) 09/19/19 17:00 Ur Specific [place] 1.010 (1.005-1.025) 09/19/19 17:00 Urine Protein Negative mg/dL (Negative) 09/19/19 17:00 Urine Ketones 40 mg/dL (Negative) H 09/19/19 17:00 Urine Blood Small (Negative) H 09/19/19 17:00 Urine Nitrite Negative (Negative) 09/19/19 17:00 Urine Bilirubin Negative (Negative) 09/19/19 17:00 Urine Urobilinogen 0.2 EU/dL (Up TO 0.2) 09/19/19 17:00 Ur Leukocyte Esterase Large (Negative) H 09/19/19 17:00 Urine RBC 3-5 (0-2) H 09/19/19 17:00 Urine WBC >50 HPF (0-5) 09/19/19 17:00 Ur Epithelial Cells Few HPF (Negative) 09/19/19 17:00 Urine Crystals Negative HPF (Negative) 09/19/19 17:00 Urine Bacteria Few HPF (Negative) 09/19/19 17:00 Urine Casts Negative LPF (Negative) 09/19/19 17:00 Urine Mucus Negative (Negative) 09/19/19 17:00 Urine Other Rare renal (Negative) 09/19/19 17:00 Ur Culture Indicated? C&s done as ordered 09/19/19 17:00 Urine Glucose Negative mg/dL (Negative) 09/19/19 17:00
--- NOTE | 2019-09-20 16:01 | CHAPLAIN ---
I had a brief visit with Berta. She said she is feeling much better. She expects her two daughters to visit later today. Berta is to Simon Soni who works in [employer].
--- NOTE | 2019-09-20 16:13 | INITIAL_ITS ---
- If Service Date Differs Date of service: 09/20/19 Time of Service: 16:13 Care Management Initial Assess REASON FOR HOSPITALIZATION:: Pyelonephritis of left kidney PAST MEDICAL HISTORY/PAST SURGICAL HISTORY:: Medical History (Updated 09/19/19 @ 21:39 by Andrew Rajput). Gestational diabetes mellitus (Resolved 09/03/13). GTT: 74, 172, 171, 163 on 09/03. Renal calculi (Chronic). Supervision of other normal (Resolved 06/03/13). Surgical History (Updated 09/19/19 @ 21:04 by Andrew Rajput). H/O lithotripsy (Acute). History of renal stent (Acute). Previous section (Chronic). Status post repeat low transverse section (Resolved 11/15/13) PREVIOUS FUNCTIONAL STATUS/SOCIAL/FAMILY SUPPORTS:: Berta lives with her and children in a single family home in [place], [place] She works as a cancer spec in a local restaurant. Berta is independent and very active. CURRENT FUNCTIONAL STATUS:: Berta was sitting up in bed when CM met with her. She was pleasant and interacted appropriatyely and willingly with CM. She stated that she is feeling great and hoped to be discharged home later today. ADVANCE DIRECTIVES:: None on file Has patient been provided with information about the portal?: No Did the patient sign up for the portal?: No CODE STATUS:: Full Code INSURANCE COVERAGE / FINANCIAL ISSUES:: [employer] CURRENT HOME/COMMUNITY SERVICES/EQUIPMENT:: none PRIMARY CARE PHYSICIAN:: betsy Hadley PATIENT/FAMILY EDUCATION NEEDS:: Discharge plan, limitations, follow up plan and Ask Me Three. ANTICIPATED BARRIERS TO DISCHARGE:: none TRANSPORTATION:: via private vehicle with PLAN:: Berta will be discharged home with no services. She will follow up with her PCP, Urologist and discharge plan of care. CM will continue to support patient, family and discharge planning needs.
[2019-09-20] MEDS: VANCOMYCIN 750 MG in Normal Saline 250 ML 166.667 MG IVPB (18:23)
[2019-09-21] MEDS: VANCOMYCIN 750 MG in Normal Saline 250 ML 166.667 MG IVPB (02:11)
[2019-09-21 03:40] VITALS: BP 125/75; PULSE 82; RESP 17; TEMP 37.2; O2SAT 99
[2019-09-21] MEDS: MEROPENEM 1 GM in Normal Saline 100 ML IVPB (04:10)
[2019-09-21 06:45] LABS: Abs Immature Grans 0.02 k/cumm (0.0-0.09); Absolute Basophil Count 0.02 k/cumm (0.0-0.2); Absolute Eosinophil Count 0.18 k/cumm (0.0-0.7); Absolute Lymphocyte Count 2.48 k/cumm (1.2-3.4); Absolute Neutrophil Count 5.59 k/cumm (1.2-6.7); Basophils % 0.2; HCT 31.5 % (36.0-46.0); HGB 10.1 g/dL (12.0-15.5); Immature Grans % 0.2; Lymphocytes % 27.3; Mean Corp. HGB Concentration 32.1 g/dL (32.0-36.0); Mean Corpuscular Hemoglobin 27.7 pg (27.0-33.0); Mean Corpuscular Volume 86.3 fL (80-95); Mean Platelet Volume 9.6 fL (8.0-11.0); Monocytes % 8.8; Neutrophils % 61.5; Platelet Count 408 x1000/uL (130-400); RBC 3.65 m/cumm (4.00-5.20); RBC Distribution Width 12.2 % (11.7-14.6); White Blood Cell Count 9.09 k/cumm (4.4-10.8)
[2019-09-21 07:00] LABS: BUN 7 mg/dL (7-18); CREATININE 0.74 mg/dL (0.55-1.02); Calcium 8.2 mg/dL (8.5-10.1); Chloride 108 mmol/L (98-107); Glucose 106 mg/dL (70-100); Magnesium 1.7 mg/dL (1.8-2.4); Potassium 3.6 mmol/L (3.5-5.1); Sodium 142 mmol/L (136-145)
[2019-09-21 07:35] VITALS: BP 111/77; PULSE 81; RESP 16; TEMP 36.7; O2SAT 96
[2019-09-21] MEDS: Enoxaparin 40 MG/0.4 ML SYR SC (08:39)
[2019-09-21] MEDS: Magnesium Oxide 400 MG TAB 800 MG PO (11:10)
[2019-09-21] MEDS: Potassium Chloride 20 MEQ TABCR 40 MEQ PO (11:10)
[2019-09-21 11:58] VITALS: BP 132/80; PULSE 89; RESP 16; TEMP 36.4; O2SAT 99
--- NOTE | 2019-09-21 12:06 | PGE_ITS ---
Date of Service Date of service: 09/21/19 Time of Service: 12:07 Assessment and Plan Assessment and plan (1) Pyelonephritis of left kidney: Start date: 09/21/19 Start time: 12:07 Status: Acute Assessment and plan: in setting of obstructive nephrolithiasis. S/p cysto/stent 09/20/19 - Doing well. Urine cultures no growth to date. Blood cultures no growth to date. Patient feels great would like to go home. Switched to PO cipro with overnight monitoring. Afebrile, no leukocytosis. If patient remains afebrile, with no leukocytosis d/c tomorrow with a 7 day course of antibiotic. Follow up with Dr. Cruz in office for lithotripsy. (2) Obstructive uropathy: Start date: 09/21/19 Start time: 12:11 Status: Acute Assessment and plan: S/p cysto/stent. Will need to follow up with Dr Cruz in 1 week in the office. (3) Renal calculi: Start date: 09/21/19 Start time: 12:11 Status: Chronic Assessment and plan: As above - follow up with Dr Cruz as outpatient for a planned laser lithotripsy. (4) Hypoglycemia: Start date: 09/21/19 Start time: 12:11 Status: Acute Assessment and plan: Resolved. IVF dcd. Repeat BMP in am (5) DVT prophylaxis: Start date: 09/21/19 Start time: 12:11 Status: Acute Assessment and plan: Lovenox SC (6) Discharge planning issues: Start date: 09/21/19 Start time: 12:11 Status: Acute Assessment and plan: Full code. Above case was discussed with Dr. Espinoza who is in agreement. Subjective Subjective Patient reports: feels better Exam Narrative Exam Narrative: Genera: very pleasant middle-aged female who feels we ll and would like to go home HEENT: EOMI, MMM Heart: RRR, no m/r/g Lungs: CTAB GI: abdomen is soft, nontender, nondistended Extremities: no e/c/c BLE's Objective Objective Clinical Data: Abnormal lab results 09/21/19 09/21/19 Range/Units 06:22 06:22 RBC 3.65 L (4.00-5.20) m/cumm Hgb 10.1 L (12.0-15.5) g/dL Hct 31.5 L (36.0-46.0) % Plt Count 408 H (130-400) x1000/uL Absolute Monocytes 0.80 H (0.11-0.7) k/cumm Chloride 108 H (98-107) mmol/L Glucose 106 H (70-100) mg/dL Calcium 8.2 L (8.5-10.1) mg/dL Magnesium 1.7 L (1.8-2.4) mg/dL Vital Signs Temperature 36.4 C L 09/21/19 11:58 Temperature Source Temporal Artery Scan 09/21/19 11:58 Pulse 89 09/21/19 11:58 Pulse Rhythm Regular 09/21/19 08:42 Respiratory Rate 16 09/21/19 11:58 Respiratory Effort Non-Labored 09/21/19 08:42 Respiratory Depth Normal 09/21/19 08:42 Respiratory Pattern Normal 09/21/19 08:42 Blood Pressure 132/80 09/21/19 11:58 Pulse Oximetry 99 09/21/19 11:58 Oxygen Delivery Method Room Air 09/21/19 11:58 Oxygen Flow Rate 0 09/21/19 11:58 Pain Level 0 09/21/19 11:58 Comment 09/20/19 04:30 Intake & Output 09/20/19 09/21/19 09/21/19 23:59 11:59 23:59 Intake Total 1506 / 4106 1456.666 / 1456.666 Output Total 2500 / 4300 2500 / 2500 Balance -994 / -194 -1043.334 / -1043.334 Weight 58.1 kg Intake: IV 1506 / 4106 1096.666 / 1096.666 Oral 360 / 360 Output: Urine 2500 / 4300 2500 / 2500 Other: Urine Color Yellow Yellow Urine Appearance Clear Clear Urine Odor Normal Strain Urine Result Negative-No Stones/Gravel Comment Pt state the amount was for two voids. Voiding Methods Toilet Toilet Laboratory Results WBC 9.09 k/cumm (4.4-10.8) 09/21/19 06:22 RBC 3.65 m/cumm (4.00-5.20) L 09/21/19 06:22 Hgb 10.1 g/dL (12.0-15.5) L 09/21/19 06:22 Hct 31.5 % (36.0-46.0) L 09/21/19 06:22 MCV 86.3 fL (80-95) 09/21/19 06:22 MCH 27.7 pg (27.0-33.0) 09/21/19 06:22 MCHC 32.1 g/dL (32.0-36.0) 09/21/19 06:22 RDW 12.2 % (11.7-14.6) 09/21/19 06:22 Plt Count 408 x1000/uL (130-400) H 09/21/19 06:22 MPV 9.6 fL (8.0-11.0) 09/21/19 06:22 Immature Gran % 0.2 09/21/19 06:22 Neutrophils % 61.5 09/21/19 06:22 Lymphocytes % 27.3 09/21/19 06:22 Monocytes % 8.8 09/21/19 06:22 Eosinophils % 2.0 09/21/19 06:22 Basophils % 0.2 09/21/19 06:22 Absolute Neutrophils 5.59 k/cumm (1.2-6.7) 09/21/19 06:22 Absolute Lymphocytes 2.48 k/cumm (1.2-3.4) 09/21/19 06:22 Absolute Monocytes 0.80 k/cumm (0.11-0.7) H 09/21/19 06:22 Absolute Eosinophils 0.18 k/cumm (0.0-0.7) 09/21/19 06:22 Absolute Basophils 0.02 k/cumm (0.0-0.2) 09/21/19 06:22 Sodium 142 mmol/L (136-145) 09/21/19 06:22 Potassium 3.6 mmol/L (3.5-5.1) 09/21/19 06:22 Chloride 108 mmol/L (98-107) H 09/21/19 06:22 Carbon Dioxide 26.0 mmol/L (21.0-32.0) 09/21/19 06:22 Anion Gap 8.0 mmol/L (3-11) 09/21/19 06:22 BUN 7 mg/dL (7-18) 09/21/19 06:22 Creatinine 0.74 mg/dL (0.55-1.02) 09/21/19 06:22 Estimated GFR/1.73 m2 >= 60.00 (mL/min/1.73m2) 09/21/19 06:22 Glucose 106 mg/dL (70-100) H 09/21/19 06:22 Lactate 0.8 mmol/L (0.6-1.4) 09/19/19 17:10 Calcium 8.2 mg/dL (8.5-10.1) L 09/21/19 06:22 Magnesium 1.7 mg/dL (1.8-2.4) L 09/21/19 06:22 Total Bilirubin 0.6 mg/dL (0.2-1.0) 09/19/19 17:10 AST 15 U/L (15-37) 09/19/19 17:10 ALT 21 U/L (14-59) 09/19/19 17:10 Alkaline Phosphatase 86 U/L (46-116) 09/19/19 17:10 Total Protein 7.9 g/dL (6.4-8.2) 09/19/19 17:10 Albumin 3.1 g/dL (3.4-5.0) L 09/19/19 17:10 Urine Color Yellow (Yellow) 09/19/19 17:00 Urine Clarity Clear (Clear) 09/19/19 17:00 Urine pH 7.0 (5-8) 09/19/19 17:00 Ur Specific [place] 1.010 (1.005-1.025) 09/19/19 17:00 Urine Protein Negative mg/dL (Negative) 09/19/19 17:00 Urine Ketones 40 mg/dL (Negative) H 09/19/19 17:00 Urine Blood Small (Negative) H 09/19/19 17:00 Urine Nitrite Negative (Negative) 09/19/19 17:00 Urine Bilirubin Negative (Negative) 09/19/19 17:00 Urine Urobilinogen 0.2 EU/dL (Up TO 0.2) 09/19/19 17:00 Ur Leukocyte Esterase Large (Negative) H 09/19/19 17:00 Urine RBC 3-5 (0-2) H 09/19/19 17:00 Urine WBC >50 HPF (0-5) 09/19/19 17:00 Ur Epithelial Cells Few HPF (Negative) 09/19/19 17:00 Urine Crystals Negative HPF (Negative) 09/19/19 17:00 Urine Bacteria Few HPF (Negative) 09/19/19 17:00 Urine Casts Negative LPF (Negative) 09/19/19 17:00 Urine Mucus Negative (Negative) 09/19/19 17:00 Urine Other Rare renal (Negative) 09/19/19 17:00 Ur Culture Indicated? C&s done as ordered 09/19/19 17:00 Urine Glucose Negative mg/dL (Negative) 09/19/19 17:00
--- NOTE | 2019-09-21 13:34 | PDOC.CMPRO ---
- If Service Date Differs Date of service: 09/21/19 Time of Service: 13:34 Care Management Progress Note S/O: Berta was sitting up in bed when CM met with her. She was pleasant, engaged and forthcoming with information. She stated that she is feeling much better and she was hoping to go home today. She also reported that she would be staying another night, per MD, as she was just changed to oral antibiotics. She expressed her concern about possible medical bills. CM offered support, and recommended that she talk with patient accounts to explore options for payment if insurance does not cover her care. She is agreeable to the plan to discharge home tomorrow. CM will continue to follow and support patient with discharge planning. A: Berta is a 43 year old female admitted to [facility] on 09/19/2019 with kidney stone, UTI, sepsis P: Anticipate Berta will return home with no additional services when medically cleared. She will follow up with her PCP, Urologist and discharge plan of care. Anticpate her , Simon will drive her home when ready via private vehicle. CM will continue to follow and support patient, family, and discharge planning needs.
[2019-09-21 15:23] VITALS: BP 129/67; PULSE 84; RESP 18; TEMP 37.2; O2SAT 99
[2019-09-21 19:01] VITALS: BP 134/71; PULSE 76; RESP 16; TEMP 36.8; O2SAT 98
[2019-09-21] MEDS: Ciprofloxacin 500 MG TAB PO (20:03)
[2019-09-21 23:27] VITALS: TEMP 36.4
[2019-09-22 03:49] VITALS: TEMP 36.1
[2019-09-22 07:07] LABS: Abs Immature Grans 0.03 k/cumm (0.0-0.09); Absolute Basophil Count 0.02 k/cumm (0.0-0.2); Absolute Lymphocyte Count 2.59 k/cumm (1.2-3.4); Absolute Monocyte Count 0.55 k/cumm (0.11-0.7); Absolute Neutrophil Count 4.58 k/cumm (1.2-6.7); Basophils % 0.3; Eosinophils % 2.5; HCT 35.6 % (36.0-46.0); HGB 11.6 g/dL (12.0-15.5); Immature Grans % 0.4; Lymphocytes % 32.5; Mean Corp. HGB Concentration 32.6 g/dL (32.0-36.0); Mean Corpuscular Hemoglobin 27.9 pg (27.0-33.0); Mean Corpuscular Volume 85.6 fL (80-95); Mean Platelet Volume 9.5 fL (8.0-11.0); Monocytes % 6.9; Neutrophils % 57.4; Platelet Count 484 x1000/uL (130-400); RBC 4.16 m/cumm (4.00-5.20); RBC Distribution Width 12.2 % (11.7-14.6); White Blood Cell Count 7.97 k/cumm (4.4-10.8)
[2019-09-22 07:16] LABS: Anion Gap 8.3 mmol/L (3-11); BUN 11 mg/dL (7-18); CO2 27.7 mmol/L (21.0-32.0); CREATININE 0.75 mg/dL (0.55-1.02); Calcium 9.1 mg/dL (8.5-10.1); Chloride 105 mmol/L (98-107); Glucose 90 mg/dL (70-100); Magnesium 1.9 mg/dL (1.8-2.4); Potassium 4.3 mmol/L (3.5-5.1); Sodium 141 mmol/L (136-145)
[2019-09-22 07:40] VITALS: BP 143/88; PULSE 84; RESP 20; TEMP 36.4; O2SAT 100
[2019-09-22] MEDS: Ciprofloxacin 500 MG TAB PO (07:42)
--- NOTE | 2019-09-22 07:51 | W.PM.DS.N ---
Date of service: 09/22/19 Time of Service: 07:52 DS: Diagnosis Discharge Diagnosis (1) Pyelonephritis of left kidney: Start date: 09/22/19 Start time: 07:52 Status: Acute Asessment and Plan: s/p cysto/stent 09/20/2019. Doing well. Urine cx NGTD. Transitioned to PO cipro, afebrile with no leukocytosis. Follow up with Dr. Cruz in office for lithotripsy. (2) Obstructive uropathy: Status: Acute (3) Renal calculi: Status: Chronic (4) Hypoglycemia: Status: Acute (5) DVT prophylaxis: Status: Acute (6) Discharge planning issues: Status: Acute Discharge Plan Disposition Patient Disposition: HOME Condition: Stable Discharge Details Chief Complaint: FlankPain Clinical Impression: Urinary tract infection, Kidney stones, SIRS (systemic inflammatory response syndrome) Reason For Visit: KIDNEY STONE, UTI, SEPSIS Admit Date/Time: 09/19/19 18:28 Admit Provider: Andrew Rajput Attending Provider: Andrew Rajput Primary Care Provider: Christel Hadley V ED Provider: Sven Mayberry Hospital Course Hospital Course: 43 y.o Female with PMHx significant for nephrolitasis treated previously with renal stents as well as lithrotripsy. Admitted to [facility] m/s for pyelonephritis after a bout of fever, chills and abdominal pain. Prior to admission she was treated for recurrent nephrolitasis and given oxycodone, flomax and zofran with referral to urology for outpatient evaluation. Diagnostic work-up in the emergency room included a CT scan of the abdomen and pelvis with contrast which demonstrated severe left-sided hydronephrosis with a 1.3 cm calculus near the left UPJ along with perinephric and periureteral stranding and overall hypodense appearance of the left kidney consistent with pyelonephritis. There is a prominent urinary bladder wall. Bilateral nonobstructive renal calculi seen with mild right hydronephrosis but no right ureteral calculi. Lab studies showed leukocytosis of 17,000, urinalysis demonstarting small amount of blood with large leukocyte esteratse and greater than 50 white cells. During course of hospital stay Dr. Cruz performed cystoscopy ureteroscopy with ureteral stent placement. CT revealing 13 mm left upj stone. He would like to see her in the office for lithotripsy, he did not feel it was emergent at this time and would like the infection to clear. Initially she was placed on cefepime and vanco, after cultures grew nothing to date she was transitioned to PO cipro and monitored for 24 hours. She feels well enough to go home, she has been afebrile with no leukocytosis. She denies Pain, n/v/d. She will need follow up with Dr. Cruz, appointment scheduled. Continue full antibiotic regimen with probiotic. Home Meds and New Rx's Prescriptions: New ciprofloxacin HCl 500 mg Tablet 500 mg PO BID Qty: 12 RF: 0 Bio-K plus 50 billion cell Capsule,Delayed Release(Dr/Ec) 1 cap PO DAILY Qty: 30 RF: 0 Continued dextroamphetamine-amphetamine [Adderall] 10 mg Tablet 10 mg PO DAILY RF: 0 naproxen 500 MG tablet 500 mg PO Q12H PRNRF: 0 oxycodone 5 mg tablet 5 mg PO Q4H PRN (Reason: pain) Qty: 10 RF: 0 ondansetron 4 mg tablet,disintegrating 4 mg PO Q6H PRN (Reason: nausea and vomiting) Qty: 10 RF: 0 Discharge Instructions Instructions: Kidney Stones (GEN), Ureteroscopy (GEN), Lithotripsy (GEN) Additional Instructions: Follow up with Dr. Cruz as scheduled. Take antibiotic as prescribed, eat a yogurt a day. Take a probiotic daily Seek medical treatment if you have chest pain, shortness of breath, nausea, worsening pain. Activity:: Activity as Tolerated Equipment/Supplies:: No Equipment Needed Diet:: As Tolerated Discharge Orders Discharge Orders: Discharge Order (Routine); Ordered 09/22/19 Ordered By: Germaine Kahn DS: Summary Status at Discharge Functional status at discharge: independent ambulation Overall status at discharge: patient is back to baseline Mental Status: mental status grossly normal Speech and Movement: speech and movement normal Mood: congruent mood Affect: normal affect Exam Narrative Exam Narrative: Genera: very pleasant middle-aged female who feels well and would like to go home HEENT: EOMI, MMM Heart: RRR, no m/r/g Lungs: CTAB GI: abdomen is soft, nontender, nondistended Extremities: no e/c/c BLE's Psych Mental Status: mental status grossly normal Speech and Movement: speech and movement normal Mood: congruent mood Affect: normal affect DS: Data Vitals/I&O Vitals and I&O: Vital Signs Temperature 36.1 C L 09/22/19 03:49 Temperature Source Temporal Artery Scan 09/22/19 03:49 Pulse 76 09/21/19 19:01 Pulse Rhythm Regular 09/22/19 07:44 Respiratory Rate 16 09/21/19 19:01 Respiratory Effort Non-Labored 09/22/19 07:44 Respiratory Depth Normal 09/22/19 07:44 Respiratory Pattern Normal 09/22/19 07:44 Blood Pressure 134/71 09/21/19 19:01 Pulse Oximetry 98 09/21/19 19:01 Oxygen Delivery Method Room Air 09/21/19 19:01 Oxygen Flow Rate 0 09/21/19 19:01 Pain Level 0 09/22/19 03:49 Comment 09/20/19 04:30 Intake & Output 09/21/19 09/21/19 09/22/19 11:59 23:59 11:59 Intake Total 1456.666 / 1946.666 490 / 1946.666 360 / 360 Output Total 2500 / 7450 4950 / 7450 Balance -1043.334 / -5503.334 -4460 / -5503.334 360 / 360 Weight 58.1 kg 56.1 kg Intake: IV 1096.666 / 1096.666 Oral 360 / 850 490 / 850 360 / 360 Output: Urine 2500 / 7450 4950 / 7450 Other: Urine Color Yellow Yellow Urine Appearance Clear Cloudy Stones/Calculi Strain Urine Result Negative-No Stones/Gravel Negative-No Stones/Gravel Comment pink colored urine settled @ bottom of hat Stool Size Moderate Stool Characteristics Soft Formed Brown Voiding Methods Toilet Toilet Data Completed and Pending Completed studies during hospitalization [Text1]: Exam(s) a CT:CT abdomen & pelvis w EXAM: CT ABDOMEN PELVIS W CLINICAL HISTORY: known L kidney stone, LLQ pain, now new fever TECHNIQUE: COMPARISON: No exams were available for comparison FINDINGS: CT examination of the abdomen pelvis was performed with bolus infusion of 100 cc of Omnipaque 350. Images obtained through the lung bases are unremarkable. Incidental note is made of bilateral spondylolysis at L5. There is also small lucent lesion of T12 vertebral body with mildly sclerotic well-defined rim consistent with benign process likely hemangioma. Liver spleen and pancreas appear normal. No biliary dilatation. Gallbladder is CT normal with minimal pericholecystic fluid. Minimal free fluid noted in the pelvis as well. Abdominal aorta is of normal diameter and no major vascular abnormality is seen. No significant abdominal wall hernia seen. No abdominal or pelvic adenopathy. Appendix is normal. No evidence of diverticulitis or bowel obstruction. Adrenals appear normal bilaterally. There are bilateral nonobstructing renal calculi. There is a 13 x 8 millimeter in diameter UPJ stone on the left causing obstruction with moderate to severe left hydronephrosis. Decreased attenuation of left renal cortex noted, this may be secondary to pyelonephritis. Perinephric stranding and periureteral stranding noted on left. There enlargement the left kidney compared to the right. Urinary bladder wall is mildly thickened, question cystitis. No additional obstructing calculi seen. Vaginal tampon noted in place. [employer] Service [employer] structures otherwise unremarkable. IMPRESSION: 13 millimeter in diameter left UPJ stone causing moderate to severe hydro nephrosis with findings worrisome for obstructive pyelonephritis as well. Nonobstructive renal calculi noted bilaterally. Exam(s) PROCEDURE INFORMATION: Exam: CT Abdomen And Pelvis With Contrast Exam date and time: 09/19/2019 6:02 PM Clinical history: 43 years old, female; Abdominal pain; Patient HX: Known L kidney stone, llq pain, new fever TECHNIQUE: Imaging protocol: Computed tomography of the abdomen and pelvis with intravenous contrast. COMPARISON: US RENAL 09/07/2019 1:42 PM FINDINGS: Lungs: Atelectasis or scarring at the lung bases. Trace left pleural effusion, series 4 image 11. Liver: Mild periportal edema. Gallbladder and bile ducts: No gallstones identified. Trace amount of pericholecystic fluid, series 6 image 27. Pancreas: Normal. No ductal dilation. Spleen: Normal. No splenomegaly. Adrenals: Bulky appearance to the left adrenal gland. Kidneys and ureters: Bilateral nonobstructive renal calculi. Mild right hydronephrosis with no right ureteral calculi seen. Severe left-sided hydronephrosis with a 1.3 cm calculus near the left UPJ. There is perinephric/periureteral stranding and an overall hypodense appearance to the left kidney. These findings could be seen secondary to infection or a component of renal malfunction. This stranding extends inferiorly along the left retroperitoneal musculature. Stomach and bowel: No obstruction. Appendix: No evidence of appendicitis. Intraperitoneal space: See above. No free air. Small amount of free fluid in the pelvis. Vasculature: Unremarkable. No abdominal aortic aneurysm. Lymph nodes: Unremarkable. No enlarged lymph nodes. Bladder: The urinary bladder wall prominence. This can be seen with infection or under distention. Reproductive: Heterogeneous uterus. Incidental note is made of a tampon. Bones/joints: Skeletal degenerative changes. Bilateral L5 pars defects. Possible small hemangioma in vertebral body T12, series 7 image 65. No acute fracture. Soft tissues: Tiny fat containing umbilical hernia. IMPRESSION: 1.Severe left-sided hydronephrosis with a 1.3 cm calculus near the left UPJ. There is perinephric/periureteral stranding and an overall hypodense appearance to the left kidney. These findings could be seen secondary to infection/pyelonephritis or a component of renal malfunction. This stranding extends inferiorly along the left retroperitoneal musculature. 2. Urinary bladder wall prominence. This can be seen with infection or under distention. 3.Bilateral nonobstructive renal calculi. Mild right hydronephrosis with no right ureteral calculi seen. 4. Mild periportal edema in the liver. This is a nonspecific finding that can be seen with pyelonephritis, acute hepatitis, or secondary cardiac congestion. There is a small amount of pericholecystic fluid which may be related. Correlation with any concern for cholecystitis suggested. 5. Heterogeneous appearance to the uterus which can be seen normally or with infection. Trace left pleural effusion. Small amount of free fluid in the pelvis. Other findings/details as above. Exam(s) a RAD:XR retrograde in OR EXAM: XR RETROGRADE IN OR INDICATION: PYELONENEPHRITIS LEFT KIDNEY. COMPARISON: No exams were available for comparison TECHNIQUE: 2D digital imaging was performed. FINDINGS: C-arm fluoroscopy was utilized by Dr. Cruz. Hard copy shows retrograde catheterization of left ureter with a left ureteral stone noted at the UPJ junction. Please see Dr. Cruz's procedure note. FLUORO TIME 30.2 seconds Labs on day of discharge: Labs from last 24 hours 09/22/19 09/22/19 06:05 06:05 WBC 7.97 RBC 4.16 Hgb 11.6 L Hct 35.6 L MCV 85.6 MCH 27.9 MCHC 32.6 RDW 12.2 Plt Count 484 H MPV 9.5 Immature Gran % 0.4 Neutrophils % 57.4 Lymphocytes % 32.5 Monocytes % 6.9 Eosinophils % 2.5 Basophils % 0.3 Absolute Neutrophils 4.58 Absolute Lymphocytes 2.59 Absolute Monocytes 0.55 Absolute Eosinophils 0.20 Absolute Basophils 0.02 Sodium 141 Potassium 4.3 Chloride 105 Carbon Dioxide 27.7 Anion Gap 8.3 BUN 11 Creatinine 0.75 Estimated GFR/1.73 m2 >= 60.00 Glucose 90 Calcium 9.1 Magnesium 1.9 Preliminary micro results at discharge 09/19/19 17:44 Blood Culture - Preliminary Blood NO GROWTH 48 HOURS 09/19/19 17:10 Blood Culture - Preliminary Blood NO GROWTH 48 HOURS 09/20/19 09:31 Urine Culture - Preliminary Urine - Not Specified PFS Medical History Gestational diabetes mellitus (Resolved 09/03/13) GTT: 74, 172, 171, 163 on 09/03 Renal calculi (Chronic) Supervision of other normal (Resolved 06/03/13) Surgical History H/O lithotripsy (Acute) History of renal stent (Acute) Previous section (Chronic) Status post repeat low transverse section (Resolved 11/15/13) Social History Smoking/Tobacco Use Status: Former Tobacco Use Alcohol Intake: current Alcohol Intake frequency: a few times a month Drug use: Occasionally Substance use type: marijuana Do you feel safe at home: Yes Do you feel safe in your relationship?: Yes
--- NOTE | 2019-09-22 11:43 | PDOC.CMDIS ---
- If Service Date Differs Date of service: 09/22/19 Time of Service: 11:43 LACE Index Scoring Tool - Questions: Length of Stay (in days): 4 - 6 Acuity (Admit via E.D.?): Yes E.D. Visits: 2 - Answers: Total Score: 9 Risk of Readmission: Low Risk Care Management Discharge Reason for Hospitalization: Pyelonephritis of left kidney Discharge Plan: Berta will return home with no additional services at this time. She will have follow up appointments with her PCP and Urology, as recommended. Her , Simon will drive her home via private vehicle. Patient/Family Education Needs: Review discharge instructions regarding activity levels and medications, discussion of self care needs including Ask Me Three
== END 2019-09-22 10:48 | disposition home or self-care (01) | DRG 661 ==
LOC: ER 18:46 → MS 19:46
PROVIDERS: Internal Medicine; Nurse Practitioner Family; Urology; Admitting Provider Internal Medicine; Emergency Provider Student in an Organized Health Care Education/Training Program; PCP Family Medicine; Visit Provider Internal Medicine
PROC: 0T778DZ Dilation of Left Ureter with Intraluminal Device, Via Natural or Artificial Opening Endoscopic (ICD-10-PCS; CPT 52332; principal; 2019-09-20 08:30)
DX: N13.6 Pyonephrosis (principal); B96.89 Other specified bacterial agents as the cause of diseases classified elsewhere; Z87.442 Personal history of urinary calculi; E16.2 Hypoglycemia, unspecified
CPT/HCPCS: 52332; 52005; 36415; 80048; 80053; 81025; 87040; 87077; 96361; 96365; 96375; 99223; 99232; 99233; 99239; 99252; 99285; J1650; 74177; 74420; 81003; 81015; 82365; 83605; 83735; 85025; 87086; 99284; J0131; J1885; J2405; J3490; Q9967

== ENCOUNTER 2019-10-03 07:38 | Day surgery (SDC) | payer OTHER, SELFPAY ==
[2019-10-03] VITALS (8 sets, daily range): BP systolic 92–120; BP diastolic 49–81; PULSE 72–92; RESP 15–17; TEMP 36.5–36.6; O2SAT 98–99
[2019-10-03] MEDS: Lactated Ringers 1,000 ML 80 ML IV (08:20)
--- NOTE | 2019-10-03 08:24 | DI.RAD_ITS ---
EXAM: XR RETROGRADE IN OR INDICATION: Left ureteral stone. COMPARISON: No exams were available for comparison TECHNIQUE: 2D digital imaging was performed. FINDINGS: C-arm fluoroscopy was utilized by Dr. Cruz. Please see Dr. Cruz's procedure note. Hard copies curtis w retrograde ureteral catheterization and placement of a ureteral stent. FLUORO TIME: 48.5 seconds
[2019-10-03] MEDS: ceFAZolin 1 GM/50 ML BAG IVPB (08:56)
[2019-10-03] MEDS: Lidocaine 2% Jelly 6 ML SYR (09:11)
[2019-10-03] MEDS: Omnipaque 300 MG/ML 50 ML BTL (09:25)
--- NOTE | 2019-10-03 10:22 | W.PM.DSUDISC ---
Discharge Plan Disposition Patient Disposition: HOME Condition: Stable Discharge Details Reason For Visit: (L) utereal stone Attending Provider: Taj Cruz Primary Care Provider: Christel Hadley V Home Meds and New Rx's Prescriptions: No Action dextroamphetamine-amphetamine [Adderall] 10 mg Tablet 10 mg PO DAILY RF: 0 naproxen 500 MG tablet 500 mg PO Q12H PRNRF: 0 oxycodone 5 mg tablet 5 mg PO Q4H PRN (Reason: pain) Qty: 10 RF: 0 ondansetron 4 mg tablet,disintegrating 4 mg PO Q6H PRN (Reason: nausea and vomiting) Qty: 10 RF: 0 ciprofloxacin HCl 500 mg Tablet 500 mg PO BID Qty: 12 RF: 0 Bio-K plus 50 billion cell Capsule,Delayed Release(Dr/Ec) 1 cap PO DAILY Qty: 30 RF: 0 Discharge Instructions Additional Instructions: Expect phone call from my office to arrange followup cysto, stent removal and ureteroscopy (to make sure all stone fragments are gone) Activity:: Activity as Tolerated Shower/Bathe:: 24 hours Diet:: As Tolerated Discharge Orders Discharge Orders: Discharge Order (Routine); Ordered 10/03/19 Ordered By: Taj Cruz DS: Diagnosis Discharge Diagnosis (1) Renal calculi: Status: Chronic
[2019-10-03] MEDS: Ketorolac 15 MG/ML VIAL IVP (10:40)
[2019-10-03] MEDS: Phenazopyridine 200 MG TAB PO (11:43)
--- NOTE | 2019-10-04 09:21 | ROE_ITS ---
DATE OF PROCEDURE: October 03, 2019 PREOPERATIVE DIAGNOSIS: Left renal stone. POSTOPERATIVE DIAGNOSIS: Same. PROCEDURE: Cystoscopy; remove left ureteral stent; left retrograde pyelogram; left flexible ureteros copy with holmium laser lithotripsy of left renal stone; extraction of stone fragments; insert left u reteral stent. SURGEON: Taj Cruz M.D. ANESTHESIA: General. COMPLICATIONS: None. HISTORY: This is a 43-year-old woman who was previously hospitalized with left flank pain, fevers an d chills. We were concerned that she had pyelonephritis. She was found to have a 13 mm stone at the ureteropelvic junction. We placed a ureteral stent and treated her with antibiotics. She comes back in today for definitive treatment to her stone. We are proposing flexible ureteroscop y with holmium laser lithotripsy. OPERATIVE REPORT: The patient was brought to the operating room on 10/03/19. After successful induct ion of general anesthesia, she was placed in the dorsal lithotomy position. Her genitalia was prepped and draped. 2% Xylocaine jelly was instilled into the urethra to act as a local anesthetic. The 22 Sami rigid cystoscope was passed through the urethra into the bladder. The urethra and blad domenica were inspected with the 30-degree lens. The stent could be seen protruding from the left ureteral orifice. A large amount of edema was seen in the orifice. The stent was grasped with alligator forceps and brought out to the level of the ure thral meatus. A Glidewire was then advanced through the stent and maneuvered above the level of the stone. The ry nt was then removed and a dual-lumen catheter was advanced over the wire. A retrograde pyelogram was performed by injecting Omnipaque through one of the ports of the dual-lumen catheter to outline the calyces. A large radiopaque stone was seen in the region of the ureteropelvic junction. A second wire was then positioned. The access catheter was removed. A ureteral access sheath was ad vanced over one of the wires. The other wire was left in place to act as a safety wire. The flexible ureteroscope was advanced through the access sheath up to the level of the stone. The s tone appeared somewhat embedded into the ureteral mucosa. We then used a 272 micron holmium laser fiber to fragment the stone. We used a power setting of .8 a nd a rate of 8. The stone fragmented quite well and in fact numerous small fragments were identified . The number of fragments made it difficult to ensure visibility. Numerous fragments were grasped i n a Zero Tip stone basket and extracted. I could not be certain that all stone fragments were remove d, so we elected to place a ureteral stent and return with a staged procedure. We chose a 4.8 variable-length stent and advanced it over the safety wire. The proximal end was curl ed in the renal pelvis and the distal end was curled within the bladder. We will plan on removing th e stent and re-doing a flexible ureteroscopy to ensure that all significant stone burden had been rem tran. The patient tolerated this procedure well. There were no complications. cc: Christel Hadley M.D.
== END 2019-10-03 12:20 | disposition home or self-care (01) ==
PROVIDERS: PCP Family Medicine; Visit Provider Urology
PROC: (CPT 52356; principal; 2019-10-03 08:45)
DX: N20.1 Calculus of ureter (principal)
CPT/HCPCS: 52356; 74420; 82365; J0690; J1100; J1885; J2405; Q9967

== ENCOUNTER 2019-10-17 06:23 | Day surgery (SDC) | payer OTHER, SELFPAY ==
[2019-10-17] VITALS (7 sets, daily range): BP systolic 106–130; BP diastolic 54–75; PULSE 75–87; RESP 10–19; TEMP 36.2–36.4; O2SAT 99–100
[2019-10-17] MEDS: Ciprofloxacin 500 MG TAB PO (06:49)
[2019-10-17] MEDS: Lactated Ringers 1,000 ML 80 ML IV (07:00)
[2019-10-17] MEDS: Lidocaine 2% Jelly 6 ML SYR (07:48)
--- NOTE | 2019-10-17 07:55 | DI.RAD_ITS ---
EXAM: XR RETROGRADE IN OR INDICATION: LEFT KIDNEY STONES. COMPARISON: No exams were available for comparison TECHNIQUE: 2D digital imaging was performed. FINDINGS: Fluoroscopy was utilized by Dr. Cruz in the operating room during retrograde evaluation of the renal collecting system. Please refer to the procedure report for complete details. FLUORO time: 7.2 seconds
[2019-10-17] MEDS: Omnipaque 300 MG/ML 50 ML BTL (08:04)
--- NOTE | 2019-10-17 08:14 | W.PM.DSUDISC ---
Discharge Plan Disposition Patient Disposition: HOME Condition: Stable Discharge Details Reason For Visit: surgery Attending Provider: Taj Cruz Primary Care Provider: Christel Hadley V Home Meds and New Rx's Prescriptions: No Action oxycodone 5 mg capsule 5 mg PO Q6H MDD 6 PRN (Reason: pain) Qty: 20 RF: 0 dextroamphetamine-amphetamine [Adderall] 10 mg Tablet 10 mg PO DAILY RF: 0 naproxen 500 MG tablet 500 mg PO Q12H PRNRF: 0 ondansetron 4 mg tablet,disintegrating 4 mg PO Q6H PRN (Reason: nausea and vomiting) Qty: 10 RF: 0 Bio-K plus 50 billion cell Capsule,Delayed Release(Dr/Ec) 1 cap PO DAILY Qty: 30 RF: 0 Discharge Instructions Additional Instructions: F/U 4 to 6 weeks with renal us no need to strain urine Activity:: Activity as Tolerated Shower/Bathe:: 24 hours Diet:: As Tolerated Discharge Orders Discharge Orders: Discharge Order (Routine); Ordered 10/17/19 Ordered By: Taj Cruz DS: Diagnosis Discharge Diagnosis (1) Renal calculi: Status: Chronic
[2019-10-17] MEDS: Acetaminophen 500 MG TAB 1000 MG PO (09:49)
--- NOTE | 2019-10-17 13:44 | ROE_ITS ---
October 17, 2019 PREOPERATIVE DIAGNOSIS: Left kidney stone. POSTOPERATIVE DIAGNOSIS: Same. PROCEDURE: Cystoscopy with removal of left ureteral stent. Left flexible ureteroscopy and retrograd e pyelogram. SURGEON: Taj Cruz M.D. ANESTHESIA: General. COMPLICATIONS: None. ESTIMATED BLOOD LOSS: Minimal. HISTORY: This is a 43-year-old woman who was seen previously with a left proximal ureteral stone. S he had undergone placement of a stent followed by ureteroscopy with Holmium laser of the stone. Due to difficult visibility, we were unsure if all stone fragments were removed. We placed a ureteral s tent and brought her back for a staged ureteroscopy. OPERATIVE REPORT: The patient is brought to the operating room on 10/17/19. After successful induc tion of general anesthesia, she was placed in the dorsal lithotomy position. Her genitalia was prepp ed and draped. She had been given a dose of preoperative antibiotics. A #22 Romanian rigid cystoscope was passed through the urethra into the bladder. The bladder was inspe cted and a stent could be seen protruding from the left ureteral orifice. The stent was grasped and brought out to the level of the urethral meatus. A GLIDEWIRE was advanced through the stent and th e stent was removed, leaving the wire in place. A dual-lumen catheter was advanced over the stent and a second wire was positioned. We chose one of the wires as a working wire and the other as a safety wire. We passed a ureteral access sheath over the working wire, leaving the safety wire in place. The flexible ureteroscope was then passed through the access sheath up to the kidney. We injected O mnipaque through the ureteroscope in order to outline the calices. We inspected each tone and foun d no residual large stone fragments. We then removed the scope and access sheath. We removed the safety wire. The patient tolerated this procedure well. There were no complications. She was taken to the [facility] room in stable condition. cc: Christel Hadley M.D.
== END 2019-10-17 10:31 | disposition home or self-care (01) ==
PROVIDERS: PCP Family Medicine; Visit Provider Urology
PROC: (CPT 52351; principal; 2019-10-17 07:30)
DX: N20.0 Calculus of kidney (principal); N20.1 Calculus of ureter; Z96.0 Presence of urogenital implants
CPT/HCPCS: 52351; 81025; 74420; J1885; Q9967

== ENCOUNTER 2019-11-29 02:45 | Outpatient (CLI) | payer OTHER, SELFPAY ==
--- NOTE | 2019-11-29 14:41 | DI.US_ITS ---
EXAM: US RENAL CLINICAL HISTORY: R/O RESIDUAL HYDRONEPHROSIS, N20.0 CALCULUS OF KIDNEY TECHNIQUE: Ultrasound performed using standard protocol. Bilateral renal ultrasound was performed. COMPARISON: US RENAL from 09/07/2019 CT ABDOMEN PELVIS W from 09/19/2019 FINDINGS: On the right, there are multiple small shadowing echogenic foci, which are consistent with nonobstruc ting renal calculi, as noted on prior abdominal CT of 09/19/2019. On the left, there is severe hydronephrosis and there is an obstructing UPJ stone measuring about 12 millimeters in diameter. Additional nonobstructing calculi also appear to be present in lower pole o f the left kidney. There are bilateral ureteral jets noted and the urinary bladder is unremarkable in appearance. IMPRESSION: Severe left hydronephrosis with 12 millimeter left UPJ stone. The degree of hydronephrosis is probab ly similar to that seen on prior CT of 09/19/2019. Bilateral ureteral jets were noted consistent with a partial obstruction. Bilateral nonobstructing renal calculi also noted.
== END 2019-11-29 03:05 ==
PROVIDERS: PCP Family Medicine; Visit Provider Urology
DX: N20.0 Calculus of kidney (principal); N13.30 Unspecified hydronephrosis
CPT/HCPCS: 76770

== ENCOUNTER 2020-02-14 11:13 | Outpatient (REF) | payer OTHER, SELFPAY ==
--- NOTE | 2020-02-14 10:30 | PAPFT_PTH ---
PATIENT: Berta Soni LOC: [facility]#:[id number] AGE/SX: 44/F ROOM: RE02/14/[address]: Christel Hadley V : 1975 BED: DIS: 02/14/2020 SPEC #: [id number] RECD: 02/14/20 18:19 STATUS: REBECA REQ #: [id number] TOSHA: 02/14/20 10:[address]: Christel Hadley V DEPT: [facility] Cytology RECD BY: Chika Manzano Tissues: 1 - CX/ENDOCX FOR PAP SMEARS Procedures: PAP THIN PREP/UVM Screening HPV DNA PROBE Comments: [id number]
== END 2020-02-14 11:33 ==
LOC: NCHCN 11:13
PROVIDERS: PCP Family Medicine; Visit Provider Family Medicine
DX: Z01.419 Encounter for gynecological examination (general) (routine) without abnormal findings (principal); Z11.51 Encounter for screening for human papillomavirus (HPV)
CPT/HCPCS: 88142; 87624

== ENCOUNTER 2020-05-12 00:26 | Outpatient (CLI) | payer OTHER, SELFPAY ==
--- NOTE | 2020-05-12 07:21 | DI.US_ITS ---
EXAM: US RENAL CLINICAL HISTORY: monitor left hydronephrosis,RENAL CALCULI,N20.0, CALCULUS. TECHNIQUE: Tabares scale, color and spectral Doppler were used. COMPARISON: CT CT ABDOMEN PELVIS W from 09/19/2019 US US RENAL from 11/29/2019 FINDINGS: Renal size in cm: Right: 11.4 left: 11.3 Echogenicity: Normal Hydronephrosis: Mild right hydronephrosis. Right ureter is visualized and mildly dilated. No obstru cting stone is seen. Moderate to severe left hydronephrosis, not significantly changed. Cyst or mass: No Nephrolithiasis: 4 millimeter stone mid right kidney. An 8 millimeter stone is seen in the proximal left ureter. Other findings: None Bladder:Normal Prevoid vol:381 cc Postvoid vol:51 cc IMPRESSION: Stable mild right hydronephrosis and hydroureter. Stable moderate to severe left hydronephrosis. A stone is noted in the proximal left ureter. Mildly elevated postvoid residual. DATA REPOSITORY:
== END 2020-05-12 00:46 ==
PROVIDERS: PCP Family Medicine; Visit Provider Urology
DX: N20.0 Calculus of kidney (principal); N13.30 Unspecified hydronephrosis; R39.198 Other difficulties with micturition
CPT/HCPCS: 76770

== ENCOUNTER 2020-05-22 11:12 | Outpatient (CLI) | payer OTHER, SELFPAY ==
[2020-05-22 22:27] LABS: COVID-19 RT-PCR UVMMC Result Negative (Negative)
== END 2020-05-22 11:32 ==
PROVIDERS: PCP Family Medicine; Visit Provider Urology
DX: Z11.59 Encounter for screening for other viral diseases (principal)
CPT/HCPCS: U0003

== ENCOUNTER 2020-05-25 07:32 | Day surgery (SDC) | payer OTHER, SELFPAY ==
[2020-05-25 07:49] VITALS: BP 120/76; PULSE 105; RESP 16; TEMP 36.6; O2SAT 100
--- NOTE | 2020-05-25 07:49 | HPE_ITS ---
Date of service: 05/25/20 Time of Service: 07:50 Assessment and Plan Assessment and plan (1) Hydronephrosis, left: Status: Acute Assessment and plan: We will plan on cystoscopy, left retrograde pyelogra m, left flexible ureteroscopy with holmium laser lithotripsy of her stone. If we are not able to access her stone, we will plan on placing a ureteral stent and coming back in a week or 2 for a staged procedure. History of Present Illness History of Present Illness Chief Complaint: Ureteral Calculus Narrative: This is a 44-year-old woman who was previously seen with left pyelonephritis. She is found to have a 12 mm left UPJ stone that was treated ureteroscopically. On follow-up ultrasound, she had persistent hydronephrosis but both ureteral jets were seen. She was not symptomatic, so we decided to follow her. She comes in after her most recent ultrasound. She has had some twinges of discomfort on the left abdomen which she was not sure were related to her kidney or to [employer] issues. She has not seen any gross hematuria. She has no dysuria. Her recent ultrasound shows persistent hydronephrosis and what appears to be a stone just below the level of the ureteropelvic junction on the left. She presents now for stone manipulation. Review of Systems Narrative: No fevers or chills No vision change or dysphasia No diabetes or thyroid dysfunction No shortness of breath, cough or hemoptysis No chest pain or palpitations No nausea or vomiting, hepatitis, ulcers, jaundice, diarrhea or constipation No seizures, strokes or peripheral neuropathy. Hx ADHD No bleeding disorders or anemia No gout PFSH Social History Smoking/Tobacco Use Status: Former Tobacco Use Quit Date: 05/03/19 Alcohol Intake: current Alcohol Intake frequency: holidays/special occasions only Alcohol type: beer, wine and hard liquor Drug use: Occasionally Substance use type: marijuana Current gender identity: female Do you feel safe at home: Yes Do you feel safe in your relationship?: Yes Meds Home Medications and Allergies Home Medications Medication Instructions Recorded Confirmed Type dextroamphetamine-amphetamine 10 mg PO DAILY 09/07/19 05/25/20 History [Adderall] naproxen 500 mg PO Q12H PRN 09/07/19 05/20/20 History ondansetron 4 mg PO Q6H PRN #10 tab 09/07/19 05/20/20 Rx L. acidophilus,casei,rhamnosus 1 cap PO DAILY #30 cap 09/22/19 05/20/20 Rx [Bio-K plus] oxycodone 5 mg capsule 5 mg PO Q6H PRN #20 cap MDD 6 10/03/19 05/20/20 Rx tamsulosin [Flomax] 0.4 mg PO DAILY 05/25/20 05/25/20 History Allergies Allergy/AdvReac Type Severity Reaction Status Date / Time codeine AdvReac Intermediate VOMITTING Unverified 05/25/20 07:44 SHRIMP Allergy Severe HIVES, Uncoded 05/25/20 07:44 SWELLING Exam Const General: cooperative, comfortable and no acute distress Neck Neck: supple Resp Effort & Inspection: normal respiratory effort Auscultation: clear to auscultation bilaterally Cardio Rate: regular rate Rhythm: regular rhythm GI Palpation: soft, no masses and nontender Neuro General: patient alert, patient awake and patient oriented x3 COVID-19 Screening In the past 14 days, have you traveled outside of [place]?: NO Had IN PERSON contact w/suspected or confirmed C-19 person: No
--- NOTE | 2020-05-25 08:00 | DI.RAD_ITS ---
EXAM: XR RETROGRADE IN OR CLINICAL HISTORY: bilat kidney stones TECHNIQUE: 2D and realtime digital imaging was performed. CONTRAST MATERIAL: Refer to procedure report. COMPARISON: No exams were available for comparison FINDINGS: Fluoroscopy was provided for Dr. Cruz during the performance of a retrograde evaluation of the casey l collecting system. Please refer to the procedure report for complete details. Fluoro time: 91 seconds IMPRESSION: RADIATION DOSE DELIVERED:
[2020-05-25] MEDS: Lactated Ringers 1,000 ML 80 ML IV (08:16)
[2020-05-25] MEDS: ceFAZolin 1 GM/50 ML BAG IVPB (08:59)
[2020-05-25] MEDS: Lidocaine 2% Jelly 11 ML SYR (09:35)
[2020-05-25] MEDS: Omnipaque 300 MG/ML 50 ML BTL (10:00)
--- NOTE | 2020-05-25 10:07 | W.PM.DSUDISC ---
Discharge Plan Disposition Patient Disposition: HOME Condition: Stable Discharge Details Attending Provider: Taj Cruz Primary Care Provider: Christel Hadley V Home Meds and New Rx's Prescriptions: No Action oxycodone 5 mg capsule 5 mg PO Q6H MDD 6 PRN (Reason: pain) Qty: 20 RF: 0 tamsulosin [Flomax] 0.4 mg Capsule 0.4 mg PO DAILY RF: 0 dextroamphetamine-amphetamine [Adderall] 10 mg Tablet 10 mg PO DAILY RF: 0 naproxen 500 MG tablet 500 mg PO Q12H PRNRF: 0 ondansetron 4 mg tablet,disintegrating 4 mg PO Q6H PRN (Reason: nausea and vomiting) Qty: 10 RF: 0 Bio-K plus 50 billion cell Capsule,Delayed Release(Dr/Ec) 1 cap PO DAILY Qty: 30 RF: 0 Discharge Instructions Additional Instructions: Will need follow up for Cystoscopy/Stent removal/Left ureteroscopy in OR @ 2 weeks No need to strain urine Activity:: Activity as Tolerated Shower/Bathe:: 24 hours Diet:: As Tolerated Discharge Orders Discharge Orders: Discharge Order (Routine); Ordered 05/25/20 Ordered By: Taj Cruz DS: Diagnosis Discharge Diagnosis (1) Hydronephrosis, left: Status: Acute
[2020-05-25 10:12] VITALS: BP 112/67; PULSE 85; RESP 15; TEMP 36.5; O2SAT 96
--- NOTE | 2020-05-25 10:13 | W.PM.OP ---
Date of service: 05/25/20 Time of Service: 10:13 Operative Note Operative Note DATE OF PROCEDURE: 05/25/20 PRE-OP DIAGNOSIS: Left ureteral stone with hydronephrosis POST-OP DIAGNOSIS: same PROCEDURE: Cystoscopy, bilateral retrograde pyelogram, left flexible ureteroscopy, holmium laser lithotripsy of the left ureteral stone, extraction of stone fragment, insert left ureteral stent SURGEON: Taj Cruz ANESTHESIA: GETA ESTIMATED BLOOD LOSS: 10 PATHOLOGY: other (Stone for chemical analysis) COMPLICATIONS: None Patient was transported to: PACU Patient's condition: stable Implants: 7 [place] by 22 to 30 cm left ureteral stent Indications: This is a 44-year-old woman who has a history of pyelonephritis on the left kidney stone. She initially underwent placement of a ureteral stent. Once the pyelonephritis was treated, she then had ureteroscopic stone manipulation. On follow-up, she has had some persistent left hydronephrosis. On her most recent scan it appears that there is a proximal left ureteral stone. She presents for stone manipulation. Findings: Left proximal ureteral stricture with a left ureteral stone above the stricture Procedure Description: The patient was brought to the operating room on 05/25/2020. She was given preoperative IV antibiotics. After successful induction of general anesthesia, she was placed in the dorsal lithotomy position. Her genitalia was prepped and draped. 2% Xylocaine jelly was instilled into the urethra to act as a local anesthetic. A 22 [place] rigid cystoscope was passed through the urethra into the bladder. The urethra and bladder were inspected with the 30 degree lens. Both ureteral orifice ease appeared normal. We began on the right side and passed a 6 [place] access catheter through the scope and maneuvered the end of the catheter into the right ureteral orifice. A retrograde film was obtained by injecting Omnipaque through the access catheter under fluoroscopic guidance. No filling defects were seen in the ureter. The right kidney and ureter drained promptly on drainage films. We then turned to the left side and injected Omnipaque up at the ureter after engaging the ureteral orifice with a 6 [place] access catheter. The distal and mid ureters appeared normal. In the proximal ureter, there was a filling defect present in the previously identified location of the stone. I was able to pass a guidewire through the access catheter and maneuvered it above the level of the stone. I then passed a dual-lumen catheter over the wire and positioned a second wire. We chose 1 of the wires as a working wire and the other is a safety wire. I then passed a ureteral access sheath over the working wire leaving the safety wire in place. Initial attempts at passing the flexible ureteroscope through the access sheath up to the level of the stone were not successful as a ureteral stricture with surrounding edema was present below the level of the stone. We removed the access sheath and we were able to dilate the ureteral stricture using the dual-lumen catheter. I was then able to pass the scope up to the level of the stone. We utilized a 272 ?m holmium laser fiber to fragment the stone. We used a dusting setting of a power of 200 and a rate of 8. The stone fragmented very nicely. The largest remaining stone fragment was grasped and a ZeroTip stone basket and removed in its entirety. That fragment of stone was sent to pathology for chemical analysis. Because of the strictured area, we elected to place a ureteral stent. I chose a 7 [place]ander variable length stent and advanced it over the safety wire. The proximal end of the stent was curled within the renal pelvis and the distal end was curled within the bladder. The positioning of the stent was confirmed both fluoroscopically and cystoscopically. We will plan on returning to the operating room in about 2 to 4 weeks. We will remove the ureteral stent and run the flexible ureteroscope back up to assess the ureteral stricture. We will also be able to ensure that no additional stone fragments are present. The patient tolerated this procedure well. There were no complications. She was taken to the recovery room in stable condition.
[2020-05-25 10:17] VITALS: BP 116/69; PULSE 76; RESP 12; TEMP 36.5; O2SAT 96
[2020-05-25 10:22] VITALS: BP 120/70; PULSE 76; RESP 12; TEMP 36.6; O2SAT 96
[2020-05-25 10:37] VITALS: BP 119/84; PULSE 88; RESP 13; TEMP 36.6; O2SAT 97
[2020-05-25 11:14] VITALS: BP 125/76; PULSE 73; RESP 16; TEMP 36.5; O2SAT 100
[2020-05-25] MEDS: Phenazopyridine 200 MG TAB PO (11:32)
[2020-05-28 11:52] LABS: Source: Left Ureter
== END 2020-05-25 11:40 | disposition home or self-care (01) ==
PROVIDERS: PCP Family Medicine; Visit Provider Urology
PROC: (CPT 52356; principal; 2020-05-25 08:15)
DX: N13.2 Hydronephrosis with renal and ureteral calculous obstruction (principal); Z87.442 Personal history of urinary calculi
CPT/HCPCS: 52356; 76000; NC; 74420; 82365; J0690; J1100; J1885; J2001; J2405; J2704; J3010; Q9967

== ENCOUNTER 2020-06-05 08:12 | Outpatient (CLI) | payer OTHER, SELFPAY ==
[2020-06-07 12:24] LABS: COVID-19 RT-PCR Result NEGATIVE (Negative)
== END 2020-06-05 08:32 ==
PROVIDERS: PCP Family Medicine; Visit Provider Urology
DX: Z11.59 Encounter for screening for other viral diseases (principal)
CPT/HCPCS: U0003

== ENCOUNTER 2020-06-08 07:13 | Day surgery (SDC) | payer OTHER, SELFPAY ==
[2020-06-08] VITALS (7 sets, daily range): BP systolic 73–116; BP diastolic 31–76; PULSE 64–98; RESP 13–18; TEMP 36.1–36.3; O2SAT 99–100
[2020-06-08] MEDS: Lactated Ringers 1,000 ML 80 ML IV (07:37)
--- NOTE | 2020-06-08 08:44 | HPE_ITS ---
Date of service: 06/08/20 Time of Service: 08:44 Assessment and Plan Assessment and plan (1) Hydronephrosis, left: Status: Acute Assessment and plan: We will plan on removing the ureteral stent and runn ing a ureteroscope to ensure that the ureter remains patent. She will then need a 4 to 6 week followup with a renal ultrasound. History of Present Illness History of Present Illness Chief Complaint: Left ureteral stricture Narrative: This is a 44-year-old woman who has a history of left-sided kidney stones. She recently underwent left ureteroscopy with holmium laser lithotripsy and evacuation of stones. At the time of the surgery, we identified a ureteral stricture below the level of the stone. We dilated the stricture and left a ureteral stent. She presents now for stent removal and ureteroscopy to ensure that the ureter remains open. Review of Systems Narrative: No fevers or chills No vision change or dysphasia No diabetes or thyroid No shortness of breath, cough or hemoptysis No chest pain or palpitations No nausea, vomiting, hepatitis, ulcers, jaundice, diarrhea or constipation No seizures, strokes or peripheral neuropathy No bleeding disorders or anemia No gout PFSH Social History Smoking/Tobacco Use Status: Former Tobacco Use Quit Date: 05/03/19 Alcohol Intake: current Alcohol Intake frequency: holidays/special occasions only Alcohol type: beer, wine and hard liquor Drug use: Occasionally Substance use type: marijuana Current gender identity: female Do you feel safe at home: Yes Do you feel safe in your relationship?: Yes Meds Home Medications and Allergies Home Medications Medication Instructions Recorded Confirmed Type dextroamphetamine-amphetamine 10 mg PO DAILY 09/07/19 06/08/20 History [Adderall] ondansetron 4 mg PO Q6H PRN #10 tab 09/07/19 06/08/20 Rx L. acidophilus,casei,rhamnosus 1 cap PO DAILY #30 cap 09/22/19 06/08/20 Rx [Bio-K plus] oxycodone 5 mg capsule 5 mg PO Q6H PRN #20 cap MDD 6 05/25/20 06/08/20 Rx Allergies Allergy/AdvReac Type Severity Reaction Status Date / Time codeine AdvReac Intermediate VOMITTING Unverified 07/13/20 07:20 SHRIMP Allergy Severe HIVES, Uncoded 06/08/20 07:20 SWELLING Exam Const General: cooperative, healthy appearing and comfortable Neck Neck: supple Resp Effort & Inspection: normal respiratory effort Auscultation: clear to auscultation bilaterally Cardio Rate: regular rate Rhythm: regular rhythm GI Palpation: soft and mass Neuro General: patient alert, patient awake and patient oriented x3 Results Last Vital Signs Temp 36.3 C L 06/08/20 07:19 Pulse 98 H 06/08/20 07:19 Resp 18 06/08/20 07:19 BP 116/76 06/08/20 07:19 Pulse Ox 99 06/08/20 07:19 COVID-19 Screening Have you,or household,traveled outside [place] in last 14 days?: No Had IN PERSON contact w/suspected or confirmed C-19 person: No
--- NOTE | 2020-06-08 09:15 | DI.RAD_ITS ---
EXAM: XR RETROGRADE IN OR CLINICAL HISTORY: Hydronephrosis, left TECHNIQUE: 2D and realtime digital imaging was performed. CONTRAST MATERIAL: Refer to procedure report. COMPARISON: No exams were available for comparison FINDINGS: Fluoroscopy was provided for Dr. Cruz during the performance of a retrograde evaluation of the casey l collecting system. Please refer to the procedure report for complete details. Fluoro time: 16.1 seconds IMPRESSION: RADIATION DOSE DELIVERED:
[2020-06-08] MEDS: ceFAZolin 1 GM/50 ML BAG IVPB (09:30)
[2020-06-08] MEDS: Omnipaque 300 MG/ML 50 ML BTL (09:55)
[2020-06-08] MEDS: Lidocaine 2% Jelly 6 ML SYR (09:56)
--- NOTE | 2020-06-08 10:02 | W.PM.DSUDISC ---
Discharge Plan Disposition Patient Disposition: HOME Condition: Stable Discharge Details Attending Provider: Taj Cruz Primary Care Provider: Christel Hadley V Home Meds and New Rx's Prescriptions: No Action oxycodone 5 mg capsule 5 mg PO Q6H MDD 6 PRN (Reason: pain) Qty: 20 RF: 0 dextroamphetamine-amphetamine [Adderall] 10 mg Tablet 10 mg PO DAILY RF: 0 ondansetron 4 mg tablet,disintegrating 4 mg PO Q6H PRN (Reason: nausea and vomiting) Qty: 10 RF: 0 Bio-K plus 50 billion cell Capsule,Delayed Release(Dr/Ec) 1 cap PO DAILY Qty: 30 RF: 0 Discharge Instructions Additional Instructions: Followup 4 to 6 weeks with renal ultrasound Activity:: Activity as Tolerated Shower/Bathe:: 24 hours Diet:: As Tolerated Discharge Orders Discharge Orders: Discharge Order (Routine); Ordered 06/08/20 Ordered By: Taj Cruz DS: Diagnosis Discharge Diagnosis (1) Hydronephrosis, left: Status: Acute
--- NOTE | 2020-06-08 10:06 | ROE_ITS ---
Date of service: 06/08/20 Time of Service: 10:07 Operative Note Operative Note DATE OF PROCEDURE: 06/08/20 PRE-OP DIAGNOSIS: Left ureteral stricture POST-OP DIAGNOSIS: same PROCEDURE: Cystoscopy, remove left ureteral stent, left retrograde pyelogram, left flexible ureteroscopy SURGEON: Taj Cruz ANESTHESIA: other (General with LMA) ESTIMATED BLOOD LOSS: 0 PATHOLOGY: none sent COMPLICATIONS: None Patient was transported to: PACU Patient's condition: stable Implants: None Indications: This is a 44-year-old woman who has a history of kidney stones. She was found to have a left proximal ureteral stone with hydronephrosis. We treated the stone ureteroscopically. At the time of her surgery, there appeared to be a strictured area in the proximal ureter just below the stone. This area was dilated, the stone was then treated and a stent was left in place. She presents now for stent removal and repeat ureteroscopy to assess the proximal ureter. Findings: Easily able to pass the ureteroscope through the previously strictured area Procedure Description: The patient was brought to the operating room on 06/08/2020. She is given preoperative IV antibiotic. After successful induction of general anesthesia, she was placed in the dorsal lithotomy position. Her genitalia was prepped and draped. 2% Xylocaine jelly was instilled into the urethra. A 22 [place]wana rigid cystoscope was then passed through the urethra into the bladder. The bladder was inspected using a 30 degree lens. The right ureteral orifice appeared normal. There was edema surrounding the left orifice and a stent could be seen protruding from the orifice. The stent was grasped with alligator forceps and brought out to the level of the urethral meatus. A Glidewire was then advanced through the lumen of the stent. The wire was left in place and the stent was removed. A 6 Setswana access catheter was then advanced over the wire and the wire was removed. A retrograde film was obtained by injecting Omnipaque through the access catheter under fluoroscopic guidance. There did appear to be some persistent narrowing in the upper ureter, but contrast was able to flow through the area on delayed films. I then replaced the wire and removed the access catheter. I passed the flexible ureteroscope over the wire and visually inspected the proximal ureter. The ureter appeared patent with no mucosal abnormalities. The scope was then remove d. The patient tolerated this procedure well. There were no complications. We will plan on a follow-up for renal ultrasound to make sure her hydronephrosis has resolved.
[2020-06-08] MEDS: Phenazopyridine 200 MG TAB PO (11:10)
== END 2020-06-08 11:35 | disposition home or self-care (01) ==
PROVIDERS: PCP Family Medicine; Visit Provider Urology
PROC: (CPT 52351; principal; 2020-06-08 08:45)
DX: N13.5 Crossing vessel and stricture of ureter without hydronephrosis (principal); Z87.442 Personal history of urinary calculi
CPT/HCPCS: 52351; 76000; NC; 74420; J0690; J1100; J1885; J2001; J2405; Q9967

== ENCOUNTER 2020-07-24 04:08 | Outpatient (CLI) | payer OTHER, SELFPAY ==
--- NOTE | 2020-07-24 08:00 | DI.US_ITS ---
EXAM: US RENAL CLINICAL HISTORY: r/o persistent hydronephrosis after ureteroscopy,renal calculi,n13.30 TECHNIQUE: Ultrasound performed using standard protocol. COMPARISON: CT CT ABDOMEN PELVIS W from 09/19/2019 US US RENAL from 05/12/2020 FINDINGS: Kidneys are normal in size and shape. There is no evidence of renal mass. There is probable mild le ft hydronephrosis. No right hydronephrosis. There is 3-4 millimeter in diameter nonobstructive righ t upper pole renal calculus. Urinary bladder is unremarkable in appearance pre and postvoid urinary bladder volume measurements 22 5 cc and 1 cc respectively. IMPRESSION: Probable mild left hydronephrosis. Probable nonobstructing right renal calculus. No other significa nt findings. CT may be obtained for further evaluation if clinically indicated. DATA REPOSITORY:
== END 2020-07-24 04:28 ==
PROVIDERS: PCP Family Medicine; Visit Provider Urology
DX: N20.0 Calculus of kidney (principal)
CPT/HCPCS: 76770

== ENCOUNTER 2021-01-25 08:19 | Day surgery (SDC) | payer OTHER, SELFPAY ==
[2021-01-25 08:30] VITALS: BP 120/73; PULSE 94; RESP 18; TEMP 36.3; O2SAT 100
[2021-01-25] MEDS: Lactated Ringers 1,000 ML 80 ML IV (09:06)
--- NOTE | 2021-01-25 09:20 | W.PM.HP.N ---
Date of service: 01/25/21 Time of Service: 09:20 Assessment and Plan Assessment and plan (1) Hydronephrosis, left: Status: Acute Assessment and plan: We will plan on left ureteroscopy and treat any visible stones. History of Present Illness History of Present Illness Chief Complaint: Left hydronephrosis Narrative: This is a 45-year-old woman who has a history of bilateral kidney stones. In the past, she underwent cystoscopy with holmium laser lithotripsy of a very large left UPJ stone. On follow-up renal ultrasound, she has left hydronephrosis and hydroureter. There appears to be at least a 6 mm stone at the ureteropelvic junction. The left ureteral jet was seen, so complete obstruction of the ureter was not present. She feels some fullness on the left side but no renal colic type pain. She has no fevers or chills. She has no gross hematuria. She has multiple nonobstructing stones on the right. Review of Systems Narrative: No fevers or chills No vision change or dysphasia No thyroid dysfunction No shortness of breath, cough or hemoptysis No chest pain or palpitations No nausea, vomiting, hepatitis, ulcers, jaundice, diarrhea or constipation No seizures, strokes or peripheral neuropathy No bleeding disorders or anemia No gout [facility] Medical History Gestational diabetes mellitus (09/03/13) GTT: 74, 172, 171, 163 on 09/03 Hydronephrosis, left Renal calculi Supervision of other normal (06/03/13) Surgical History H/O lithotripsy History of renal stent Previous section Status post repeat low transverse section (11/15/13) Social History Smoking/Tobacco Use Status: Former Tobacco Use Quit Date: 05/03/19 Smoking risk assessment performed?: Yes Alcohol Intake: current Alcohol Intake frequency: holidays/special occasions only Alcohol type: beer, wine and hard liquor Drug use: Occasionally Substance use type: marijuana Current gender identity: female Do you feel safe at home: Yes Do you feel safe in your relationship?: Yes Meds Home Medications and Allergies Allergies Allergy/AdvReac Type Severity Reaction Status Date / Time codeine AdvReac Intermediate VOMITTING Unverified 01/25/21 08:29 SHRIMP Allergy Severe HIVES, Uncoded 01/25/21 08:29 SWELLING Home Medications Medication Instructions Recorded Confirmed Type dextroamphetamine-amphetamine 10 mg PO DAILY 09/07/19 01/25/21 History [Adderall] L. acidophilus,casei,rhamnosus 1 cap PO DAILY #30 cap 09/22/19 01/25/21 Rx [Bio-K plus] Exam Const General: cooperative Neck Neck: supple Resp Effort & Inspection: normal respiratory effort Auscultation: clear to auscultation bilaterally Cardio Rate: regular rate Rhythm: regular rhythm GI Palpation: soft Neuro General: patient alert, patient awake and patient oriented x3 Results Last Vital Signs Temp 36.3 C L 01/25/21 08:30 Pulse 94 H 01/25/21 08:30 Resp 18 01/25/21 08:30 BP 120/73 01/25/21 08:30 Pulse Ox 100 01/25/21 08:30 COVID-19 Screening Have you, or household traveled for leisure in last 14 days?: No Had IN PERSON contact w/suspected or confirmed C-19 person: No
[2021-01-25] MEDS: ceFAZolin 1 GM/50 ML BAG IVPB (10:05)
[2021-01-25] MEDS: Lidocaine 2% Jelly 6 ML SYR (10:09)
[2021-01-25] MEDS: Omnipaque 300 MG/ML 50 ML BTL (10:24)
--- NOTE | 2021-01-25 10:43 | W.PM.DSUDISC ---
Discharge Plan Disposition Patient Disposition: HOME Condition: Stable Discharge Details Reason For Visit: left hydronephrosis Attending Provider: Taj Cruz Primary Care Provider: Christel Hadley V Home Meds and New Rx's Prescriptions: New oxycodone 5 mg capsule 5 mg PO Q6H PRNQty: 15 RF: 0 No Action dextroamphetamine-amphetamine [Adderall] 10 mg Tablet 10 mg PO DAILY RF: 0 Bio-K plus 50 billion cell Capsule,Delayed Release(Dr/Ec) 1 cap PO DAILY Qty: 30 RF: 0 Discharge Instructions Additional Instructions: Followup in office 2 to 4 weeks for cystoscopy and stent removal Activity:: Activity as Tolerated Shower/Bathe:: 24 hours Diet:: As Tolerated Discharge Orders Discharge Orders: Discharge Order (Routine); Ordered 01/25/21 Ordered By: Taj Cruz DS: Diagnosis Discharge Diagnosis (1) Hydronephrosis, left: Status: Acute
--- NOTE | 2021-01-25 10:55 | ROE_ITS ---
Date of service: 01/25/21 Time of Service: 10:55 Operative Note Operative Note DATE OF PROCEDURE: 01/25/21 PRE-OP DIAGNOSIS: Left hydronephrosis POST-OP DIAGNOSIS: same left ureteral stricture left ureteral stone PROCEDURE: cystoscopy, left retrograde pyelogram, left flexible ureteroscopy, left ureteral balloon dilation, left renal stone extraction, insert left u reteral stent SURGEON: Taj Cruz ANESTHESIA TYPE: General:No Airway Refer to Anesthesia Record ESTIMATED BLOOD LOSS: 5 PATHOLOGY: other (stone for chemical analysis) COMPLICATIONS: None Patient was transported to: same day Patient's condition: stable Implants: 7 Guyanese by 22 to 30 cm ureteral stent Indications: This is a 45-year-old woman who has a history of bilateral kidney stones. She was not having symptoms suggestive of renal colic, but on follow-up ultrasound, she had a left hydronephrosis. The left proximal ureter was also dilated. There was a question of a 6 mm UPJ stone. She presents for possible ureteroscopy and stone manipulation Findings: Proximal left ureteral stricture 6 mm stone above the strictured area Procedure Description: The patient was given preoperative antibiotics and broug ht to the operating room on 01/25/2021. After successful induction of general anesthesia without intubation, she was placed in the dorsal lithotomy position. Her genitalia was prepped and draped. 2% Xylocaine jelly was instilled into the urethra to act as a local anesthetic. A 22 Guyanese rigid cystoscope was passed through the urethra into the bladder. The bladder was inspected with a 30 degree lens. Both ureteral orifice ease appeared normal. No blood was seen coming from either side. The left ureteral orifice was cannulated with 6 Guyanese check catheter. Retrograde film was obtained by injecting Omnipaque through the access catheter under fluoroscopic guidance. There was a narrowing in the proximal ureter with subsequent dilation of the ureter and collecting system above this narrowed area. A Glidewire was then advanced through the access catheter and maneuvered up to the kidney. The access catheter was removed and a dual-lumen catheter was advanced over the wire. A second wire was then positioned. We chose one of the wires as a working wire and the other is a safety wire. The flexible ureteroscope was advanced over the working wire up to the level of the previously noted ureteral narrowing. In this area, I was unable to advance the scope any further. I then used a passport balloon to dilate the ureter. I positioned the balloon across the narrowed area under ureteroscopic vision. We inflated the balloon and the ureter dilated. I was then able to further advance the ureteroscope proximal to the narrowed area. We identified a stone that was then bumped back into the lower pole calyx. I was able to grasp the stone in a ZeroTip stone basket and remove the stone in its entirety. We sent the stone to the lab for chemical analysis. Because of the ureteral dilation, we elected to place a ureteral stent. We chose a 7 Guyanese variable length stent and advanced it over the safety wire. The proximal end of the stent was curled in the renal pelvis and the distal end was curled within the bladder. The positioning of the stent was confirmed both fluoroscopically and cystoscopy graphically. The patient tolerated this procedure well with no complications.
--- NOTE | 2021-01-25 11:00 | DI.RAD_ITS ---
EXAM: XR RETROGRADE IN OR CLINICAL HISTORY: left hydronephrosis TECHNIQUE: 2D and realtime digital imaging was performed. CONTRAST MATERIAL: Refer to procedure report. COMPARISON: No exams were available for comparison FINDINGS: Fluoroscopy was provided for Dr. Cruz during the performance of a retrograde evaluation of the casey l collecting system. Please refer to the procedure report for complete details. Fluoro time: 30.5 seconds IMPRESSION: RADIATION DOSE DELIVERED:
[2021-01-25] MEDS: Phenazopyridine 200 MG TAB PO (11:06)
[2021-01-25 11:19] VITALS: BP 117/77; PULSE 68; RESP 16; TEMP 36; O2SAT 100
[2021-02-03 09:31] LABS: Source: Left Ureter
== END 2021-01-25 11:45 | disposition home or self-care (01) ==
PROVIDERS: PCP Family Medicine; Visit Provider Urology
PROC: (CPT 52320; principal; 2021-01-25 10:00)
DX: N13.2 Hydronephrosis with renal and ureteral calculous obstruction (principal); N13.1 Hydronephrosis with ureteral stricture, not elsewhere classified
CPT/HCPCS: 52320; 52341; 52332; 81025; NC; 74420; 82365; J0131; J0690; J1100; J1885; J2001; J2250; J2405; Q9967

== ENCOUNTER 2021-11-02 00:11 | Outpatient (CLI) | payer OTHER, SELFPAY ==
--- NOTE | 2021-11-02 07:30 | DI.RAD_ITS ---
Exam(s) XR ABDOMEN FLAT PLATE EXAM: 2D digital imaging was performed. CLINICAL HISTORY: right ureteral stone - check for progression,CALCULUS OF URETER, N20.1. COMPARISON: CT CT ABDOMEN PELVIS WO from 10/05/[address] ABDOMEN PELVIS WO from 10/05/2021 TECHNIQUE: Supine views of the abdomen performed. FINDINGS: BOWEL GAS PATTERN: Nondistended. CALCIFICATIONS: There is a 3 mm stone to the right of the L2 vertebral body just above the transverse process consistent with a proximal ureteral stone. There are phleboliths seen in the left pelvis. No other urinary tract calculi are identified. OSSEOUS STRUCTURES: Normal for age. OTHER FINDINGS: The visualized lung bases are clear. IMPRESSION: 1. Nonobstructive bowel gas pattern. 2. 3 mm stone on the right just above the L2 transverse process. DATA REPOSITORY: RADIATION DOSE DELIVERED:
== END 2021-11-02 00:31 ==
PROVIDERS: PCP Family Medicine; Visit Provider Urology
DX: N20.1 Calculus of ureter (principal)
CPT/HCPCS: 74018

== ENCOUNTER 2021-11-09 02:41 | Outpatient (CLI) | payer OTHER, SELFPAY ==
[2021-11-09 12:31] LABS: Source Nasal/Nares
[2021-11-09 22:17] LABS: COVID-19 PCR Positive (Negative)
== END 2021-11-09 02:42 | disposition home or self-care (01) ==
LOC: LBO 02:42
PROVIDERS: PCP Family Medicine; Visit Provider Urology
DX: Z20.822 Contact with and (suspected) exposure to COVID-19 (principal)
CPT/HCPCS: 87635

== ENCOUNTER 2022-01-13 00:43 | Outpatient (CLI) | payer MEDICAID, SELFPAY ==
--- NOTE | 2022-01-13 06:45 | DI.US_ITS ---
Exam(s) US RENAL EXAM: US RENAL CLINICAL HISTORY: monitor known hydronephrosis,N13.30. TECHNIQUE: Tabares scale, color and spectral Doppler were used. COMPARISON: US US RENAL from 09/24/[address] ABDOMEN PELVIS WO from 10/05/2021 FINDINGS: Renal size in cm: Right: 12.1. Left: 11.2. Echogenicity: Normal. Hydronephrosis: There has been significant improvement in the right hydronephrosis with very mild hyd ronephrosis present. There is also mild dilatation of the left renal collecting system. This is als o significantly improved since the prior ultrasound examination. Cyst or mass: No. Nephrolithiasis: No. Other findings: None. Bladder:Normal. Ureteral jets: Right: Visualized and unremarkable. Left: Visualized and unremarkable. Prevoid vol:732 cc Postvoid vol:15 cc Renal color flow: Symmetric and within normal limits. IMPRESSION: Marked improvement of the bilateral hydronephrosis with mild persistent hydronephrosis present bilate rally. DATA REPOSITORY:
== END 2022-01-13 01:03 ==
PROVIDERS: PCP Family Medicine; Visit Provider Urology
DX: N13.39 Other hydronephrosis (principal)
CPT/HCPCS: 76770

== ENCOUNTER 2022-03-03 18:30 | Outpatient (REF) | payer MEDICAID, SELFPAY ==
[2022-03-03 13:31] LABS: ALT 22 U/L (14-59); AST 15 U/L (15-37); Alkaline Phosphatase 58 U/L (46-116); Anion Gap 10.4 mmol/L (3-11); BUN 24 mg/dL (7-18); Bilirubin, Total 0.3 mg/dL (0.2-1.0); CO2 24.6 mmol/L (21.0-32.0); CREATININE 0.6 mg/dL (0.55-1.02); Calcium 8.9 mg/dL (8.5-10.1); Calculated LDL 160 mg/dL (<100); Chloride 104 mmol/L (98-107); Cholesterol 251 mg/dL (<200); Glucose 95 mg/dL (74-106); HCT 43.7 % (36.0-46.0); HDL Cholesterol 83 mg/dL (40-60); MCH 28.5 pg (27.0-33.0); MPV 11.2 fL (8.0-11.0); Platelet Count 278 10^3/uL (130-400); Potassium 4.5 mmol/L (3.5-5.1); RBC 4.91 10^6/uL (3.93-5.22); RDW 12.9 % (11.7-14.6); RDW-SD 42.5 fL; Sodium 139 mmol/L (136-145); TSH (W/Ref FT4) 1.87 uIU/mL (0.36-3.74); Total Protein 7.3 g/dL (6.4-8.2); Triglyceride 41 mg/dL (<150); WBC 8.25 10^3/uL (4.4-10.8)
== END 2022-03-03 18:31 | disposition home or self-care (01) ==
LOC: NCHCN 18:30
PROVIDERS: PCP Family Medicine; Visit Provider Family Medicine
DX: Z86.2 Personal history of diseases of the blood and blood-forming organs and certain disorders involving the immune mechanism (principal); Z87.442 Personal history of urinary calculi; Z13.29 Encounter for screening for other suspected endocrine disorder; R79.89 Other specified abnormal findings of blood chemistry; Z00.00 Encounter for general adult medical examination without abnormal findings
CPT/HCPCS: 80053; 80061; 85027; 84443

== ENCOUNTER → 2022-05-23 01:43 | Outpatient (CLI) | payer MEDICAID, SELFPAY ==
--- NOTE | 2022-05-23 07:00 | DI.US_ITS ---
Exam(s) US RENAL EXAM: US RENAL CLINICAL HISTORY: Renal calculi,n20.0 TECHNIQUE: Ultrasound of both kidneys performed using standard protocol. COMPARISON: US US RENAL from 01/13/2022 FINDINGS: RIGHT KIDNEY: Measures 11 cm in length. No cysts evident. Normal cortical thickness and corticomedullary differenti ation .No solid masses there are echogenic foci, largest measuring 5 millimeters, consistent with sanchez culi. Mild hydronephrosis LEFT KIDNEY: Measures 10 cm in length. There also intrarenal echogenic calculi seen within this kidney, consisten t with renal calculi, largest measuring 5 millimeters. No cysts evident. Normal cortical thickness a nd corticomedullary differentiaion. No solids masses. Mild hydronephrosis evident URINARY BLADDER: Prevoid volume is 83 cc Postvoid volume is 3.5 cc No evidence of bladder mass nor diverticuli. Ureterovesical jets: Both identified and appear symmetrical IMPRESSION: 1. Bilateral renal calculi, measuring up to 5 millimeters in size bilaterally 2. Mild bilateral hydronephrosis. DATA REPOSITORY:
== END ==
PROVIDERS: PCP Family Medicine; Visit Provider Urology
DX: N13.2 Hydronephrosis with renal and ureteral calculous obstruction (principal)
CPT/HCPCS: 76770

== ENCOUNTER 2022-11-30 02:11 | Outpatient (CLI) | payer MEDICAID, SELFPAY ==
--- NOTE | 2022-11-30 07:00 | DI.US_ITS ---
Exam(s) US RENAL EXAM: US RENAL CLINICAL HISTORY: monitor known stones,renal calculi, n20.0. TECHNIQUE: Tabares scale, color and spectral Doppler were used. COMPARISON: CT CT ABDOMEN PELVIS WO from 10/05/2021 US US RENAL from 05/23/2022 FINDINGS: Renal size in cm: Right: 11.4 left: 9.3 Echogenicity: Normal Hydronephrosis: Mild right, not changed. Moderate left, appears somewhat more prominent than on prio r. Cyst or mass: No Nephrolithiasis: Several tiny bilateral echogenic foci are noted. The largest measures 5 millimeters at the lower pole of the left kidney. Bladder:Normal. Both ureteral jets visualized. Prevoid vol:542 cc Postvoid vol:0 cc IMPRESSION: Small bilateral renal calculi. Mild right hydronephrosis appears stable. Moderate left hydronephros is appears have worsened from prior. DATA REPOSITORY:
== END 2022-11-30 02:31 ==
PROVIDERS: PCP Family Medicine; Visit Provider Urology
DX: N20.0 Calculus of kidney (principal); N13.30 Unspecified hydronephrosis
CPT/HCPCS: 76770

== ENCOUNTER 2022-12-16 00:48 | Outpatient (CLI) | payer MEDICAID, SELFPAY ==
--- NOTE | 2022-12-16 06:30 | DI.CT_ITS ---
Exam(s) CT ABDOMEN PELVIS WO EXAM: CT ABDOMEN PELVIS WO CLINICAL HISTORY: ? left ureteral stone,bilat hydronephrosis,n20.0,n13.30. TECHNIQUE: Imaging Protocol: Axial computed tomography images with coronal and sagittal reformatted images were created and reviewed. COMPARISON: CT CT ABDOMEN PELVIS WO from 10/05/2021 US US RENAL from 11/30/2022 FINDINGS: ABDOMEN: Lung Bases: Normal where visualized. Liver: The dome of the liver is not included. The liver is normal density. No measurable mass. Gallbladder and biliary tract: No radiodense calculus or biliary ductal dilation. Pancreas: Normal density, no abnormal calcifications or inflammatory process. Spleen: Normal. Kidneys: There is renal cortical atrophy of the left kidney.There is bilateral nephrolithiasis. No h ydronephrosis or ureterolithiasis. No masses seen. Adrenal glands: No mass is seen. Lymph nodes: Within normal limits. Abdominal Aorta: Abdominal portion non-dilated. PELVIS: Bladder:Symmetric distention, no gross wall thickening. Bowel: No obstruction or bowel wall thickening. Appendix is unremarkable. Peritoneal cavity: No ascites, collection or mesenteric inflammatory response. No free air. Reproductive organs: Unremarkable as visualized. Bones: Within normal limits for the patient's age. There is L5 spondylolysis but no spondylolisthesi s. Soft Tissues: Within normal limits. IMPRESSION: Bilateral nephrolithiasis. No hydronephrosis. RADIATION DOSE DELIVERED: 757.76mGy.cm Total DLP DATA REPOSITORY: All CT scans at this facility are submitted to the National Radiology Data Registry (NRDR) Dose Index Registry (DIR) with the [employer] (ACR). RADIATION OPTIMIZATION: All CT scans at this facility use at least one of these dose optimization te chniques: automated exposure control; mA and/or kV adjustment per patient size (includes targeted exa ms where dose is matched to clinical indication); or iterative reconstruction.
== END 2022-12-16 01:08 ==
LOC: DI 00:48
PROVIDERS: PCP Family Medicine; Visit Provider Urology
DX: N13.2 Hydronephrosis with renal and ureteral calculous obstruction (principal)
CPT/HCPCS: 74176

== ENCOUNTER → 2023-07-19 01:26 | Outpatient (CLI) | payer MEDICAID, SELFPAY ==
--- NOTE | 2023-07-19 07:15 | DI.US_ITS ---
Exam(s) US RENAL EXAM: US RENAL CLINICAL HISTORY: monitor known stones,n20.0. TECHNIQUE: Tabares scale, color and spectral Doppler were used. COMPARISON: US US RENAL from 11/30/[address] ABDOMEN PELVIS WO from 12/16/2022 FINDINGS: Renal size in cm: Right: 10.7. Left: 9.5. Echogenicity: Normal. Hydronephrosis: There is mild bilateral hydronephrosis. Cyst or mass: No. Nephrolithiasis: There is a 3 mm echogenic focus in the midpole of the left kidney. Other findings: None. Bladder:Normal. Ureteral jets: Right: Visualized and unremarkable. Left: Visualized and unremarkable. Prevoid vol:316 cc Postvoid vol:0 cc Renal color flow: Symmetric and within normal limits. IMPRESSION: 1. Mild bilateral hydronephrosis. 2. Left nephrolithiasis. DATA REPOSITORY:
== END ==
PROVIDERS: PCP Family Medicine; Visit Provider Urology
DX: N13.2 Hydronephrosis with renal and ureteral calculous obstruction (principal)
CPT/HCPCS: 76770

== ENCOUNTER 2024-05-10 10:30 | Outpatient (REF) | payer MEDICAID, SELFPAY ==
[2024-05-10 16:20] LABS: Hemoglobin A1C 5.4 % (<5.7)
[2024-05-10 16:28] LABS: Anion Gap 9.2 mmol/L (3-11); BUN 22 mg/dL (7-18); CO2 29.8 mmol/L (21.0-32.0); CREATININE 0.7 mg/dL (0.55-1.02); Calcium 9.3 mg/dL (8.5-10.1); Chloride 100 mmol/L (98-107); Estimated GFR 107.28 (mL/min/1.73m2); Glucose 105 mg/dL (74-106); Potassium 3.3 mmol/L (3.5-5.1); Sodium 139 mmol/L (136-145)
== END 2024-05-10 10:31 | disposition home or self-care (01) ==
LOC: NCHCN 10:30
PROVIDERS: PCP Family Medicine; Visit Provider Family Medicine
DX: I10 Essential (primary) hypertension (principal); Z13.1 Encounter for screening for diabetes mellitus; Z00.00 Encounter for general adult medical examination without abnormal findings
CPT/HCPCS: 80048; 83036

== ENCOUNTER 2024-06-22 04:01 | Emergency (ER) | payer MEDICAID, SELFPAY ==
[2024-06-22] VITALS (19 sets, daily range): BP systolic 108–155; BP diastolic 56–106; PULSE 64–85; RESP 14–20; TEMP 36.6; O2SAT 94–100
--- OUTSIDE RECORDS SUMMARY | 2024-06-22 04:06 | XMS_ITS | Encounter Summary ---
Author Organization [facility] Address [address] [place] [address] Care Team Providers Care Dry Cleaning Checker Name Role Phone Unknown, Provider Primary Care Provider [phone] Christel Hadley MD Primary Care Provider [phone] Encounter Details Date Type Department Care Team (Late st Contact Info) Description 01/27/2010 Historical Results Only [facility] - Main [address] [address] Deonte Friend MD [address] [place] [id number] Social History Tobacco Use Types Packs/Day Years Used Date Smoking Tobacco: Never Assessed Sex and Gender Information Value Date Recorded Sex Assigned at Not on file Gender Identity Not on file Sexual Orientation Not on file documented as of this encounter Plan of Treatment Not on file documented as of this encounter Procedures Procedure Name Priority Date/Time Associated Diagnosis Comments SURGICAL PATHOLOGY Routine 01/27/2010 documented in this encounter Results * SURGICAL PATHOLOGY (01/27/2010) 01/27/2010 01/27/2010 14: 35 EST Narrative [facility] - 01/29/2010 14:36 EST ----- ------- Name: BERTA SONI V ?: [birth year] ?Age/Sex: 43/F ?Unit#: [id number] ? Loc: SDS ? Status: DEP SDC ?? Reg Date: 01/27/10 ? Pt.Phone Number: ? ----- ------- Specimen: [id number] ?STATUS: SOUT ?Spec Date:01/27/10 ? Physician Copies: ?Deonte Friend ?? Tissues: A ?? Urinary Tract (KIDNEY STONE) ? CPT: 02298 ?? Units: ??1 ?FINAL DIAGNOSIS ? Gross Diagnosis: ? - Lithiasis (right kidney stone). ? GROSS DESCRIPTION ? Received unfixed labeled with the patient's name and right kidney stone are ? multiple fragments of graves calculus material aggregating about 1 cc, gross ? description only. ??CP ?? PREOP DX/CLINICAL HISTORY ?RIGHT NEPHROLITHIASIS Signed ____(signature on file)____ Jennifer Durand M.D. 01/29/10 By the signature above, the attending physician certifies that he/she has personally conducted a gross and/or microscopic examination of the described specimens and rendered or confirmed the above diagnosis. Test Performed by [facility], [address] [place] [address] Test Operator: Jennifer Durand MD PHD ----- ------- Deonte Friend MD PATHOLOGY ORDERABLES [facility] documented in this encounter Visit Diagnoses Not on filedocumented in this encounter Care Teams Dry Cleaning Checker Relationship Specialty Start Date End Date Unknown, Provider, PCP - General 05/13/10 11/17/13 Christel Hadley MD [address] [place] [id number] PCP - General 11/18/13 documented as of this encounter
--- OUTSIDE RECORDS SUMMARY | 2024-06-22 04:06 | XMS_ITS | Encounter Summary ---
Author Organization [facility] Address [address] [place] [address] Care Team Providers Care Kindergartner Name Role Phone Christel Hadley MD Primary Care Provider [phone] Encounter Details Date Type Department Care Team (Late st Contact Info) Description 05/22/2020 Lab Requisition [facility] Pathology & Laboratory Medicine - [facility] [address], [place] [address] Outr Resulting Lab, Provider Social History Tobacco Use Types Packs/Day Years Used Date Smoking Tobacco: Never Assessed Sex and Gender Information Value Date Recorded Sex Assigned at Not on file Gender Identity Not on file Sexual Orientation Not on file documented as of this encounter Plan of Treatment Not on file documented as of this encounter Procedures Procedure Name Priority Date/Time Associated Diagnosis Comments ZZCOVID-19 TEST [facility] PCR Today 05/22/2020 11:15 EDT COVID-19 TESTING Routine 05/22/2020 11:1 5 EDT documented in this encounter Results * COVID-19 TEST [facility] PCR (05/22/2020 11:15 EDT) Swab ENTIRE NASOPHARYNX / Unknown 05/22/2020 11:15 EDT 05/22/2020 15:44 EDT Provider Outr Resulting Lab MICROBIOLOGY - GENERAL ORDERABLES [facility] [address] [place] [address] * COVID-19 TESTING (05/22/2020 11:15 EDT) COVID-19 rt-PCR Result Negative Negative 05/22/2020 22:23 EDT [facility] Comment: This test has not been FDA cleared or approved. This test has been authorized by FDA under an EUA for use by authorized laboratories. This test has been authorized only for detection of nucleic acid from 2019-nCoV, not for any other viruses or pathogens. This test is only authorized for the duration of the declaration that circumstances exist justifying the authorization of emergency use of in vitro diagnostic tests for detection and/or diagnosis of 2019-nCoV under section 564(b)(1) of Act, 21 U.S.C ?? 360bbb-3(b) (1), unless the authorization is terminated or revoked sooner. Negative results do not preclude 2019-nCoV infection and should not be used as the sole basis for treatment or other patient management decisions. Negative results must be combined with clinical observations, patient history, and epidemiological information. Performed on the [employer] Fusion instrument Performing Lab [place] [facility] 05/22/2020 22:23 EDT [facility] Swab 05/22/2020 11:1 5 EDT 05/22/2020 15:44 EDT Provider Outr Resulting Lab MICROBIOLOGY - GENERAL ORDERABLES [facility] [address] [place] [address] documented in this encounter Visit Diagnoses Not on filedocumented in this encounter Additional Health Concerns Infection Onset Date Last Indicated Resolved Time R/O COVID-19 06/05/2020 06/05/2020 06/10/2020 22:1 5 EDT documented as of this encounter Care Teams Kindergartner Relationship Specialty Start Date End Date Christel Hadley MD [address] [place] [address] PCP - General 11/18/13 documented as of this encounter
--- OUTSIDE RECORDS SUMMARY | 2024-06-22 04:06 | XMS_ITS | Encounter Summary ---
Author Organization [facility] Address [address] [place] [address] Care Team Providers Care Quill Cleaning Machine Operator Name Role Phone Christel Hadley MD Primary Care Provider [phone] Encounter Details Date Type Department Care Team (Late st Contact Info) Description 06/05/2020 Lab Requisition [facility] Pathology & Laboratory Medicine - [facility] [address], [place] [address] Outr Resulting Lab, Provider Social History Tobacco [...] Procedure Name Priority Date/Time Associated Diagnosis Comments DO NOT ORDER STANDALONE - [facility] COVID TEST Today 06/05/2020 10:50 EDT COVID-19 TESTING Routine 06/05/2020 10:5 0 EDT documented in this encounter Results * DO NOT ORDER STANDALONE - [facility] COVID TEST (06/05/2020 10:50 EDT) COVID-19 rt-PCR Result NEGATIVE Negative 06/07/2020 11:09 EDT [facility] Comment: 2019-novel Coronavirus (2019-nCoV) not detected by the qRT-PCR assay. Consider testing for other respiratory viruses or re-collecting for 2019-nCoV testing. Note: Optimum timing for peak viral levels during infections caused by 2019-nCoV have not been determined. Collection of multiple specimens from the same patient may be necessary to detect the virus. Limitations Positive results are indicative of active infection with SARS-CoV-2 but do not rule out bacterial infection or co-infection with other viruses. The agent detected may not be the definite cause of disease. In addition, detection of viral RNA may not indicate the presence of infectious virus or that SARS-CoV-2 is the causative agent for clinical symptoms. Negative results do not preclude SARS-CoV-2 infection and should not be used as the sole basis for patient management decisions. Negative results must be combined with clinical observations, patient history, and epidemiological information. False negative results may also occur if amplification inhibitors are present in the specimen or if inadequate numbers of organisms are present in the specimen. Optimum specimen types and timing for peak viral levels during infections caused by SARS-CoV-2 have not been fully determined. Collection of multiple specimens (types and time points) from the same patient may be necessary to detect the virus. The test was validated for use with upper respiratory specimens obtained via nasopharyngeal or oropharyngeal swabs in VTM, UTM, M4, M5, M6, saline, and MTM media. The performance of this test has not been established for other specimens. Specimens collected using other FDA recommended Specimen Collection Materials listed in the FDA COVID-19 [employer] communication (February 20, 2020) are processed with the caveat that they were not all validated for use with this test and the result must be interpreted in this context. Furthermore, a false negative results may occur if a specimen is improperly collected, transported or handled. If the virus mutates in the RT-PCR target region, SARS-CoV-2 may not be detected or may be detected less predictably. Inhibitors or other types of interference may produce a false negative result. An interference study evaluating the effect of common cold medications was not performed. This test is not FDA-cleared but its performance characteristics were established by our CLIA-certified, CAP-accredited, high complexity laboratory in accordance with CLIA regulations, [employer] (CAP) guidelines (Feb 13, 2020), and FDA guidance (Jan 25, 2020). This test is only for use under the Food and Drug Administration's Emergency Use Authorization. Swab ENTIRE NASOPHARYNX / Unknown 06/05/2020 10:50 EDT 06/05/2020 15:39 EDT Provider Outr Resulting Lab MICROBIOLOGY - GENERAL ORDERABLES [facility] [place], [place] * COVID-19 TESTING (06/05/2020 10:50 EDT) COVID-19 rt-PCR Result NEGATIVE Negative 06/07/2020 12:19 EDT [facility] Comment: 2019-novel Coronavirus (2019-nCoV) not detected by the qRT-PCR assay. Consider testing for other respiratory viruses or re-collecting for 2019-nCoV testing. Note: Optimum timing for peak viral levels during infections caused by 2019-nCoV have not been determined. Collection of multiple specimens from the same patient may be necessary to detect the virus. Limitations Positive results are indicative of active infection with SARS-CoV-2 but do not rule out bacterial infection or co-infection with other viruses. The agent detected may not be the definite cause of disease. In addition, detection of viral RNA may not indicate the presence of infectious virus or that SARS-CoV-2 is the causative agent for clinical symptoms. Negative results do not preclude SARS-CoV-2 infection and should not be used as the sole basis for patient management decisions. Negative results must be combined with clinical observations, patient history, and epidemiological information. False negative results may also occur if amplification inhibitors are present in the specimen or if inadequate numbers of organisms are present in the specimen. Optimum specimen types and timing for peak viral levels during infections caused by SARS-CoV-2 have not been fully determined. Collection of multiple specimens (types and time points) from the same patient may be necessary to detect the virus. The test was validated for use with upper respiratory specimens obtained via nasopharyngeal or oropharyngeal swabs in VTM, UTM, M4, M5, M6, saline, and MTM media. The performance of this test has not been established for other specimens. Specimens collected using other FDA recommended Specimen Collection Materials listed in the FDA COVID-19 [employer] communication (February 20, 2020) are processed with the caveat that they were not all validated for use with this test and the result must be interpreted in this context. Furthermore, a false negative results may occur if a specimen is improperly collected, transported or handled. If the virus mutates in the RT-PCR target region, SARS-CoV-2 may not be detected or may be detected less predictably. Inhibitors or other types of interference may produce a false negative result. An interference study evaluating the effect of common cold medications was not performed. This test is not FDA-cleared but its performance characteristics were established by our CLIA-certified, CAP-accredited, high complexity laboratory in accordance with CLIA regulations, [employer] (CAP) guidelines (Feb 13, 2020), and FDA guidance (Jan 25, 2020). This test is only for use under the Food and Drug Administration's Emergency Use Authorization. Performing Lab [facility] 06/07/2020 12:19 EDT [facility] Swab 06/05/2020 10:5 0 EDT 06/05/2020 15:39 EDT Provider Outr Resulting Lab MICROBIOLOGY - GENERAL ORDERABLES [facility] [address] [place] [address] [facility] [place] [place] documented in this encounter Visit Diagnoses Not on filedocumented in this encounter Additional Health Concerns Infection Onset Date Last Indicated Resolved Time R/O COVID-19 06/05/2020 06/05/2020 06/10/2020 22:1 5 EDT documented as of this encounter Care Teams Quill Cleaning Machine Operator Relationship Specialty Start Date End Date Christel Hadley MD [address] [place] [address] PCP - General 11/18/13 documented as of this encounter
--- OUTSIDE RECORDS SUMMARY | 2024-06-22 04:06 | XMS_ITS | Encounter Summary ---
Author Organization [facility] Address [address] [place] [address] Care Team Providers Care Cd Reactor Operator Head Name Role Phone Christel Hadley MD Primary Care Provider [phone] Encounter Details Date Type Department Care Team (Late st Contact Info) Description 09/19/2019 Results Only [facility] [phone] Sven Mayberry DO [address] [place] [address] Social History Tobacco Use Types Packs/Day Years Used Date Smoking Tobacco: Never Assessed Sex and Gender Information Value Date Recorded Sex Assigned at Not on file Gender Identity Not on file Sexual Orientation Not on file documented as of this encounter Plan of Treatment Not on file documented as of this encounter Procedures Procedure Name Priority Date/Time Associated Diagnosis Comments ORGANISM IDENTIFICATION AND SUSCEPTIBILITY Routine 09/19/2019 17:10 EDT documented in this encounter Results * ORGANISM IDENTIFICATION AND SUSCEPTIBILITY (09/19/2019 17:10 EDT) Result GARDNERELLA VAGINALIS 09/28/2019 12:47 EDT [facility] Result Susceptibility not routinely performed 09/28/2019 12:47 EDT [facility] BLOOD SPECIMEN / Unknown 09/19/2019 17:10 EDT 09/26/2019 18:22 EDT Comment:Assumption plate(s) submit karrie for interpretation~BAP Sven Mayberry DO MICROBIOLOGY - G ENERAL ORDERABLES [facility] [address] [place] [address] documented in this encounter Visit Diagnoses Not on filedocumented in this encounter Care Teams Cd Reactor Operator Head Relationship Specialty Start Date End Date Christel Hadley MD [address] [place] [address] PCP - General 11/18/13 documented as of this encounter
--- OUTSIDE RECORDS SUMMARY | 2024-06-22 04:06 | XMS_ITS | Referral Summary ---
Author Organization [facility] Address [address] [place] [address] Care Team Providers Care Admin Assistant Name Role Phone Christel Hadley MD Primary Care Provider [phone] Social History Tobacco Use Types Packs/Day Years Used Date Smoking Tobacco: Never Assessed Sex and Gender Information Value Date Recorded Sex Assigned at Not on file Gender Identity Not on file Sexual Orientation Not on file Plan of Treatment Not on file Care Teams Admin Assistant Relationship Specialty Start Date End Date Christel Hadley MD [address] [place] [address] PCP - General 11/18/13
--- OUTSIDE RECORDS SUMMARY | 2024-06-22 04:06 | XMS_ITS | Encounter Summary ---
Author Organization [facility] Address [address] [place] [address] Care Team Providers Care Brush Fabrication Supervisor Name Role Phone Unknown, Provider Primary Care Provider [phone] Encounter Details Date Type Department Care Team (Latest Contact Info) Description 11/15/2013 15:11 EST - 11/15/2013 23:59 EST Hospital Encounter [address] [address] Unknown, Provider, Discharge Disposition: Home or Self Care Social History Tobacco Use Types Packs/Day Years Used Date Smoking Tobacco: Never Assessed Sex and Gender Information Value Date Recorded Sex Assigned at Not on file Gender Identity Not on file Sexual Orientation Not on file documented as of this encounter Discharge Disposition Disposition Code Departure Means Destination Home or Self Longterm documented in this encounter Plan of Treatment Not on file documented as of this encounter Visit Diagnoses Not on filedocumented in this encounter Care Teams Brush Fabrication Supervisor Relationship Specialty Start Date End Date Unknown, Provider, PCP - General 05/13/10 11/17/13 documented as of this encounter
--- OUTSIDE RECORDS SUMMARY | 2024-06-22 04:06 | XMS_ITS | Encounter Summary ---
Author Organization [facility] Address [address] [place] [address] Care Team Providers Care Capper Machine Operator Name Role Phone Unknown, Provider Primary Care Provider [phone] Encounter Details Date Type Department Care Team (Late st Contact Info) Description 05/06/2013 Results Only [facility] [phone] J[place]AN R[place]CI [address] [place], [place] [phone] Social History Tobacco Use Types Packs/Day Years Used Date Smoking Tobacco: Never Assessed Sex and Gender Information Value Date Recorded Sex Assigned at Not on file Gender Identity Not on file Sexual Orientation Not on file documented as of this encounter Plan of Treatment Not on file documented as of this encounter Procedures Procedure Name Priority Date/Time Associated Diagnosis Comments PAP TEST- RESULT ONLY Routine 05/06/2013 0:00 EDT documented in this encounter Results * PAP TEST- RESULT ONLY (05/06/2013 0:00 EDT) Pathology Report: CYTOPATHOLOGY REPORT Reports generated via electronic interface contain original data; however they are lacking the format of the original report. Caution should be taken when reading/interpreti ng unformatted reports. Name: ? BERTA SONI V ? Accession #: ? [id number] ? : ? 1975 (Age: 37) ??F ?Collect Date: ? 05/06/2013 ? Location: ? [facility] ? Receive Date: ? 05/07/2013 ? Provider: ANDER MORA CNM Copy to: BRITTNEE ORELLANA MD ? Final Report SPECIMEN ADEQUACY ? Satisfactory for Evaluation - transformation zone component absent GENERAL CATEGORIZATION ? Negative for Intraepithelial Lesion or Malignancy ?? Last Menstrual Period: 02/08/13 Menstrual/Pregnanc y Status: ?? Specimen/Source: ??Pap Test, Cervix/Endocervix, ThinPrep Imaging System with manual evaluation Document reviewed and electronically signed by: ? Danette Cope, ELIEZER(ASCP)(IAC) ? Report ??Date: 05/14/2013 16:22 HPV with Pap Test ? Date Ordered: ? 05/14/2013 ? Status: ?? Signed Out ?Date Complete: ? 05/16/2013 ? By: ??System Interface ? Date Reported: ? 05/16/2013 ? Interpretation RESULT: Negative for HPV. No E6 or E7 mRNA is detected from HPV types 16,18,31,33,35, 39,45,51,52,56,58, 59,66, and 68 by cafe site attendant mediated amplification. Comments Document reviewed and electronically signed by: ? System Interface ? Report date: 05/16/2013 By the signature above, the attending physician certifies that he/she has personally conducted a gross and/or microscopic examination of the described specimens and rendered or confirmed the above diagnosis. End of Report [facility] 05/06/2013 05/07/2013 Ander Abby CNM PATHOLOGY ORDERABLES [facility] [address] [place] [address] documented in this encounter Visit Diagnoses Not on filedocumented in this encounter Care Teams Capper Machine Operator Relationship Specialty Start Date End Date Unknown, Provider, PCP - General 05/13/10 11/17/13 documented as of this encounter
--- OUTSIDE RECORDS SUMMARY | 2024-06-22 04:06 | XMS_ITS | Encounter Summary ---
Author Organization [facility] Address [address] [place] [address] Care Team Providers Care Sap Security Architect Name Role Phone Christel Hadley MD Primary Care Provider Encounter Details Date Type Department Care Team (Latest Contact Info) Description 02/17/2020 Lab Requisition [facility] Pathology & Laboratory Medicine - [facility] [address] [place] [address] Christel Hadley MD [address] [place] [phone] Encounter for gynecological examination (general) (routine) without abnormal findings Social History Tobacco Use Types Packs/Day Years Used Date Smoking Tobacco: Never Assessed Sex and Gender Information Value Date Recorded Sex Assigned at Not on file Gender Identity Not on file Sexual Orientation Not on file documented as of this encounter Plan of Treatment Not on file documented as of this encounter Procedures Procedure Name Priority Date/Time Associated Diagnosis Comments PAP TEST Today 02/14/2020 10:30 EDT Encounter for gynecological examination (general) (routine) without abnormal findings HPV DNA DETECTION WITH GENOTYPING, PCR Today 02/14/2020 10:30 EDT Encounter for gynecological examination (general) (routine) without abnormal findings documented in this encounter Results * HUMAN PAPILLOMAVIRUS (HPV) DETECTION-HIGH RISK TYPES (02/14/2020 10:30 EDT) HPV other High Risk types, PCR Negative Negative 02/24/2020 14:38 EDT [facility] Comment:No E6 or E7 mRNA is detected from HPV types 16,18,31,33,35,39,45,51,52,56,58,59,66, and 68 by rotating equipment specialist mediated amplification. Papanicolaou smear specimen (specimen) CERVIX UTERI STRUCTURE / Unknown 02/14/2020 10:30 EDT 02/21/2020 10:16 EDT Christel Hadley MD MICROBIOLOGY - GENER AL ORDERABLES [facility] [address] [place] [address] * PAP TEST (02/14/2020 10:30 EDT) Specimens A. Cervix and/or Endocervix, ThinPrep Imaging System with Manual Evaluation 02/24/2020 14:38 EDT [facility] Specimen Adequacy Satisfactory for Evaluation - transformation zone component present 02/24/2020 14:38 EDT [facility] General Categorization Negative for intraepithelial lesion or malignancy 02/24/2020 14:38 EDT [facility] Attestation . 02/24/2020 14:38 T [facility] at 1438 Clinical History NONE 02/24/20 14:38 EDT [facility] HPV The result for the Human Papillomavirus (HPV) Detection-High Risk Types is Negative. No E6 or E7 mRNA is detected from HPV types 16,18,31,33,35,39 ,45,51,52,56,58,5 9,66, and 68 by rotating equipment specialist mediated amplification.Maddie ting was performed on specimen [id number] and was resulted on 02/24/2020 1435 EDT by FAH[facility], LAB INSTRUMENT RESULTS IN 02/24/2020 14:38 EDT [facility] Scanned Images 02/24/2020 14:38 EDT [facility] Papanicolaou smear specimen (specimen) CERVIX UTERI STRUCTURE / Unknown 02/14/2020 10:30 EDT 02/17/2020 8:52 EDT Christel Hadley MD PATHOLOGY ORDERABLES Performing Organization Address City/[facility]/ZIP Co de Phone Number [facility] [address] [place] [address] documented in this encounter Visit Diagnoses Diagnosis Encounter for gynecological examination (general) (routine) without abnormal findings documented in this encounter Additional Health Concerns Infection Onset Date Last Indicated Resolved Time R/O COVID-19 06/05/2020 06/05/2020 06/10/2020 22:1 5 EDT documented as of this encounter Care Teams Sap Security Architect Relationship Specialty Start Date End Date Christel Hadley MD [address] [place] [address] PCP - General 11/18/13 documented as of this encounter
--- OUTSIDE RECORDS SUMMARY | 2024-06-22 04:06 | XMS_ITS | Encounter Summary ---
Author Organization [facility] Address [address] [place] [address] Care Team Providers Care Principal Law Clerk Name Role Phone Unknown, Provider Primary Care Provider [phone] Christel Hadley MD Primary Care Provider [phone] Encounter Details Date Type Department Care Team (Late st Contact Info) Description 11/15/2013 Results Only [facility]- [facility] [phone] Tyler Harrison MD [address] [place], [place] [address] Social History Tobacco Use Types Packs/Day Years Used Date Smoking Tobacco: Never Assessed Sex and Gender Information Value Date Recorded Sex Assigned at Not on file Gender Identity Not on file Sexual Orientation Not on file documented as of this encounter Plan of Treatment Not on file documented as of this encounter Procedures Procedure Name Priority Date/Time Associated Diagnosis Comments SURGICAL PATHOLOGY Routine 11/15/2013 9:28 EST documented in this encounter Results * SURGICAL PATHOLOGY (11/15/2013 9:28 EST) Pathology Report: SURGICAL PATHOLOGY REPORT Reports generated via electronic interface contain original data; however they are lacking the format of the original report. Caution should be taken when reading/interpreti ng unformatted reports. Name: ? BERTA SONI V ? Accession #: ? [id number] ? : ? 1975 (Age: 37) ??F ? Collect Date: ? 11/15/2013 ? Location: ? [facility] ? Receive Date: ? 11/15/2013 ? Provider: TYLER HARRISON MD Copy to: CHRISTEL HADLEY MD ? Final Pathologic Diagnosis: A. FALLOPIAN TUBE, RIGHT, PARTIAL RESECTION: - ??Portion of benign fallopian tube with intact lumen. - ??Simple paratubal cyst. - ??Walthard nests. B. FALLOPIAN TUBE, LEFT, PARTIAL RESECTION: - ??Portion of benign fallopian tube with intact the lumen. - ??Simple paratubal cysts. Document reviewed and electronically signed by: Kinga Sher MD Report ??Date: 11/21/2013 15:38 By the signature above, the attending physician certifies that he/she has personally conducted a gross and/or microscopic examination of the described specimens and rendered or confirmed the above diagnosis. Specimen(s) Received: A. ??Portion Rt fallopian tube B. ??Portion Lt fallopian tube Clinical History: Desire for inferility Gross Description: A. ?Received in formalin labelled with proper patient identification (initials A, S) and #1 Rt portion fallopian tube is a tubular tissue (3.5 cm in length and 0.6 cm in diameter). ??The serosal surface is generally smooth and graves with a small 0.2 cm diameter clear fluid filled paratubal cyst which has a smooth inner lining. ??Sectioning reveals a central pinpoint lumen. Two tax representative cross sections are submitted as A1. B. ? Received in formalin labelled with proper patient identification (initials A, S) and #2 Lt portion fallopian tube is a tubular tissue (2.0 cm in length and 0.5 cm in diameter). ??The serosal surface is generally smooth and graves. ??Sectioning reveals a central pinpoint lumen. Two tax representative cross sections are submitted as B1. Ross Webb 11/18/2013 12:32 PM End of Report [facility] 11/15/2013 9:28 EST 11/15/2013 9:28 EST Tyler Harrison MD PATHOLOGY ORDERABLES [facility] [address] [place] [address] documented in this encounter Visit Diagnoses Not on filedocumented in this encounter Care Teams Principal Law Clerk Relationship Specialty Start Date End Date Unknown, Provider, PCP - General 05/13/10 11/17/13 Christel Hadley MD [address] [place] [address] PCP - General 11/18/13 documented as of this encounter
--- OUTSIDE RECORDS SUMMARY | 2024-06-22 04:06 | XMS_ITS | Encounter Summary ---
Author Organization [facility] Address [address] [place] [address] Care Team Providers Care Bedspread Seamer Name Role Phone Unknown, Provider Primary Care Provider [phone] Encounter Details Date Type Department Care Team (Late st Contact Info) Description 03/28/2006 Results Only [facility] - [facility] [address] [place] [address] Berta Valadez [place], [place] [id number] Social History Tobacco Use Types Packs/Day Years Used Date Smoking Tobacco: Never Assessed Sex and Gender Information Value Date Recorded Sex Assigned at Not on file Gender Identity Not on file Sexual Orientation Not on file documented as of this encounter Plan of Treatment Not on file documented as of this encounter Procedures Procedure Name Priority Date/Time Associated Diagnosis Comments CYTOPATHOLOGY Routine 03/28/2006 0:00 EDT documented in this encounter Results * CYTOPATHOLOGY (03/28/2006 0:00 EDT) Pathology Report: CYTOPATHOLOGY REPORT Reports generated via electronic interface contain original data; however they are lacking the format of the original report. Caution should be taken when reading/interpreti ng unformatted reports. Name: ? BERTA SONI V ? Accession #: ? [id number] : ? 1975 (Age: 30) ??F ?Collect Date: ? 03/28/2006 Location: ? [facility] ? Receive Date: ? 03/29/2006 Provider: ?BERTA VALADEZ CNM Copy to: ? Specimen/Source: ?ThinPrep Pap Test, Cervix/Endocervix, processed on [employer] ThinPrep Imaging System, with manual evaluation Last Menstrual Period: ? 01/20/06 Menstrual/Pregnanc y Status: ? Other: ? HPVA - HPV testing requested if ASC-US on the current ThinPrep Pap test. ? SPECIMEN ADEQUACY ? Satisfactory for Evaluation - transformation zone component present GENERAL CATEGORIZATION ? Negative for Intraepithelial Lesion or Malignancy INTERPRETATION ? Shift in jim present suggestive of bacterial vaginosis. ? Document reviewed and electronically signed by: ? ELIEZER Raines(ASCP) ? Report Date: ??03/30/2006 14:23 End of Report [facility] 03/28/2006 03/29/2006 Berta Valadez CNM PATHOLOGY ORDERABLES Performing Organization Address City/State/[facility] Co de Phone Number [facility] [address] [place] [address] documented in this encounter Visit Diagnoses Not on filedocumented in this encounter Care Teams Bedspread Seamer Relationship Specialty Start Date End Date Unknown, Provider, PCP - General 05/13/10 11/17/13 documented as of this encounter
--- OUTSIDE RECORDS SUMMARY | 2024-06-22 04:06 | XMS_ITS | Encounter Summary ---
Author Organization [facility] Address [address] [place] [address] Care Team Providers Care Log Snaker Name Role Phone Unknown, Provider Primary Care Provider [phone] Encounter Details Date Type Department Care Team (Late st Contact Info) Description 05/12/[address] [facility] Laboratory Services - [facility] ([facility] [address] [place], [place] [phone] Anu Ramachandran PA [address] [place] [address] Social History Tobacco Use Types Packs/Day Years Used Date Smoking Tobacco: Never Assessed Sex and Gender Information Value Date Recorded Sex Assigned at Not on file Gender Identity Not on file Sexual Orientation Not on file documented as of this encounter Plan of Treatment Not on file documented as of this encounter Procedures Procedure Name Priority Date/Time Associated Diagnosis Comments HPV DETECTION, HIGH RISK TYPES Routine 05/12/2010 8:40 EDT CYTOPATHOLOGY Routine 05/12/2010 0:00 EDT documented in this encounter Results * HUMAN PAPILLOMA VIRUS DNA TEST (05/12/2010 8:40 EDT) Specimen Description Cervix, ThinPrep vial [facility] Result Negative for HPV types 16, 18, 31, 33, 35, 39, 45, 51, 52, 56, 58, 59, and 68. [facility] Report Status Final 05/20/2010 [facility] 05/12/2010 8:40 EDT 05/19/2010 8:40 EDT Anu M Ramachandran PA MICROBIOLOGY - GE NERAL ORDERABLES [facility] [address] [place] [address] * CYTOPATHOLOGY (05/12/2010 0:00 EDT) Pathology Report: CYTOPATHOLOGY REPORT ? Reports generated via electronic interface contain original data; ? however they are lacking the format of the original report. ? Caution should be taken when reading/interpreti ng unformatted reports. ? Name: ? BERTA SONI V ? Accession #: ? [id number] ? : ? 1975 (Age: 34) ??F ?Collect Date: ? 05/12/2010 ? Location: ? [facility] ? Receive Date: ? 05/13/2010 ? Provider: ?ANU RAMACHANDRAN PA ? Copy to: ? Specimen/Source: ?Pap Test, Cervix/Endocervix, ThinPrep Imaging System ? with manual evaluation ? Last Menstrual Period: ? 05/20/10 ? Other: ? HPVDX - HPV testing requested regardless of diagnosis on current ThinPrep Pap ?? test. ? SPECIMEN ADEQUACY ? Satisfactory for Evaluation ? - transformation zone component present ? GENERAL CATEGORIZATION ? Negative for Intraepithelial Lesion or Malignancy ? Document reviewed and electronically signed by: ? Lynan Jossue, CT(ASCP) ? Report Date: ??05/18/2010 13:38 ? End of Report ? [facility] 05/12/2010 05/13/2010 Anu SILVA PATHOLOGY ORDERAB LES [facility] [address] [place] [address] documented in this encounter Visit Diagnoses Not on filedocumented in this encounter Care Teams Log Snaker Relationship Specialty Start Date End Date Unknown, Provider, PCP - General 05/13/10 11/17/13 documented as of this encounter
--- OUTSIDE RECORDS SUMMARY | 2024-06-22 04:06 | XMS_ITS | Encounter Summary ---
Author Organization [facility] Address [address] [place] [address] Care Team Providers Care Mission Coordinator Name Role Phone Unknown, Provider Primary Care Provider [phone] Encounter Details Date Type Department Care Team (Late st Contact Info) Description 11/16/2013 Results Only [facility] - [facility] [address] [place] [id number] Unknown, Provider, Social History Tobacco Use Types Packs/Day Years Used Date Smoking Tobacco: Never Assessed Sex and Gender Information Value Date Recorded Sex Assigned at Not on file Gender Identity Not on file Sexual Orientation Not on file documented as of this encounter Plan of Treatment Not on file documented as of this encounter Procedures Procedure Name Priority Date/Time Associated Diagnosis Comments SCREEN TEST Routine 11/16/2013 18: 45 EST documented in this encounter Results * SCREEN TEST (11/16/2013 18:45 EST) Screen Test NEGATIVE [facility] 11/16/2013 18:4 5 EST Provider Unknown BLOOD BANK TESTS [facility] documented in this encounter Visit Diagnoses Not on filedocumented in this encounter Care Teams Mission Coordinator Relationship Specialty Start Date End Date Unknown, Provider, PCP - General 05/13/10 11/17/13 documented as of this encounter
--- OUTSIDE RECORDS SUMMARY | 2024-06-22 04:06 | XMS_ITS | Clinical Summary ---
Author Organization [facility] Address [address] [place] [address] Care Team Providers Care Survey Questionnaire Designer Name Role Phone Christel Hadley MD Primary Care Provider [phone] Social History Tobacco Use Types Packs/Day Years Used Date Smoking Tobacco: Never Assessed Sex and Gender Information Value Date Recorded Sex Assigned at Not on file Gender Identity Not on file Sexual Orientation Not on file Plan of Treatment Health Maintenance Due Date Last Done Comments Hepatitis C Screen 1975 Hepatitis B Vaccine (1 of 3 - 19+ 3-dose series) 12/28 COVID-19 Vaccine (2022- season) 2023 Care Teams Survey Questionnaire Designer Relationship Specialty Start Date End Date Christel Hadley MD [address] [place] [address] PCP - General 11/18/13
--- NOTE | 2024-06-22 04:17 | DI.RAD_ITS ---
Exam(s) XR ABDOMEN FLAT LATERAL EXAM: 2D digital imaging was performed. CLINICAL HISTORY: left flank pain, eval for stone. COMPARISON: CR XR ABDOMEN FLAT PLATE from 11/02/2021 US POCUS EXAM from 06/22/2024 TECHNIQUE: Supine and Lateral views of the abdomen was performed. Images were obtained. FINDINGS: LUNG BASES: Clear. BOWEL GAS PATTERN: Nondistended. There is a moderate amount of stool in the colon. FREE AIR: None. CALCIFICATIONS: There calcifications again seen in the left pelvis likely reflecting phleboliths. Th ere appears to be a 3-4 mm calcification just lateral to the left L3 transverse process. In its loca tion, it could represent a mid left ureteral stone. OSSEOUS STRUCTURES: Normal for age. OTHER FINDINGS: None. IMPRESSION: There is a 3-4 mm calcification lateral to the left L3 transverse process. In its location, it could represent a mid left ureteral stone. Renal colic CT may be considered for further evaluation. DATA REPOSITORY: RADIATION DOSE DELIVERED:
[2024-06-22 04:29] LABS: Abs Immature Grans 0.06 10^3/uL (0.0-0.06); Absolute Basophil Count 0.08 10^3/uL (0.0-0.2); Absolute Eosinophil Count 0.12 10^3/uL (0.0-0.7); Absolute Monocyte Count 0.91 10^3/uL (0.1-0.8); Absolute Neutrophil Count 12.42 10^3/uL (1.2-6.7); Basophils % 0.5 %; Eosinophils % 0.7 %; HCT 42.4 % (36.0-46.0); HGB 14.2 g/dL (11.2-15.7); Immature Grans % 0.4 %; Lymphocytes % 17.6 %; MCHC 33.5 % (32.0-36.0); MCV 87 fL (80-95); MPV 10.2 fL (8.0-11.0); Monocytes % 5.5 %; Neutrophils % 75.3 %; Platelet Count 311 10^3/uL (130-400); RBC 4.89 10^6/uL (3.93-5.22); RDW 12.9 % (11.7-14.6); RDW-SD 40.7 fL; WBC 16.49 10^3/uL (4.4-10.8)
[2024-06-22] MEDS: ACETAMINOPHEN 1,000 MG/100 ML BTL 400 MG IVPB (04:46)
[2024-06-22] MEDS: Lactated Ringers 1,000 ML 1000 ML IV (04:46)
[2024-06-22] MEDS: Ketorolac 15 MG/ML VIAL IVP (04:46)
--- NOTE | 2024-06-22 04:46 | ED.GENADUL_ITS ---
Discharge Plan Disposition Patient Disposition: Home Condition: Good Discharge Details Clinical Impression: Left flank pain Primary Care Provider: Christel Hadley V ED Provider: Sven Mayberry Home Meds and New Rx's Prescriptions: New tamsulosin [Flomax] 0.4 mg capsule 0.4 mg PO DAILY Qty: 10 0RF No Action dextroamphetamine-amphetamine [Adderall XR] 20 mg capsule,extended release 24hr 20 mg PO DAILY atenolol-chlorthalidone 50-25 mg tablet 1 tab PO DAILY Patient Comments: TAKE 1 TABLET BY MOUTH EVERY DAY IN THE MORNING ondansetron HCl 4 mg tablet 4 mg PO TID-QID PRN Bio-K plus 50 billion cell Capsule,Delayed Release(Dr/Ec) 1 cap PO DAILY Qty: 30 0RF Discharge Instructions Instructions: Flank Pain ED Additional Instructions: At this time we suspect that you either have a kidney stone or may have passed one . This is likely the cause of your symptoms. Please drink plenty of fluids, 10 to 12 cups/day at least. Please take 800 mg of ibuprofen every 6 hours and 1000 mg of Tylenol every 6 hours as needed for pain. These are the maximum doses of these medicines. Please take the Flomax as directed. This will help in expediting the passage of your kidney stone. Please follow-up closely with Dr. Cruz on Monday. If you do not have resolution of your symptoms after 48 to 72 hours please follow-up closely with your family doctor or return here for reassessment. Take the oxycodone only as needed for breakthrough pain. If you notice any worsening of your symptoms, or any new symptoms such as inability to urinate, vomiting, diarrhea, fever, chills, shortness of breath, chest pain, numbness, weakness, or fainting , please return immediately to the emergency department for reevaluation. Please follow up with your primary care provider as soon as possible for reassessment and reevaluation. As always, it was a pleasure participating in your medical care today. Referrals: Christel Hadley MD [Primary Care Provider] - Taj Cruz MD [ [facility] STAFF PHYSICIAN] - Discharge Data Discharge Date/Time-TO BE ENTERED AT DEPARTURE: 06/22/24 08:02 HPI General Date/Time Provider Initiated Documentation: 06/22/24 04:16 . HPI Narrative: This is a very pleasant 48-year-old female with a past medical history of multiple kidney stones, who presents today for evaluation of left flank pain. Patient has required previous lithotripsy and stenting in the past, and is managed by Dr. Cruz. Patient states that yesterday she developed some mild left-sided flank pain. She did take some NSAID therapy which mildly improved her symptoms. She came in tonight because of symptom persistence. She denies fever or chills. She denies any amanda hematuria. She denies vomiting but does admit to nausea. She denies any chest pain or shortness of breath. Pain is localized in the left flank. No other complaints at this time. No other modifying factors. She denies fever or chills. Related Data Home Medications ?Medication ?Instructions ?Recorded ?Confirmed L. acidophilus,casei,rhamnosus 50 1 cap PO DAILY #30 caps 09/22/19 06/22/24 billion cell capsule,delayed release (Bio-K plus) dextroamphetamine-amphetamine ER 20 mg PO DAILY 05/27/22 06/22/24 20 mg 24hr capsule,extend release (Adderall XR) atenolol 50 mg-chlorthalidone 25 1 tab PO DAILY 06/22/24 06/22/24 mg tablet ondansetron HCl 4 mg tablet 4 mg PO TID-QID PRN 06/22/24 06/22/24 tamsulosin 0.4 mg capsule (Flomax) 0.4 mg PO DAILY #10 caps 06/22/24 Previous Rx's ?Medication ?Instructions ?Recorded L. acidophilus,casei,rhamnosus 50 1 cap PO DAILY #30 caps 09/22/19 billion cell capsule,delayed release (Bio-K plus) tamsulosin 0.4 mg capsule (Flomax) 0.4 mg PO DAILY #10 caps 06/22/24 Allergies Allergy/AdvReac Type Severity Reaction Status Date / Time codeine AdvReac Intermediate VOMITTING Unverified 06/22/24 04:48 SHRIMP Allergy Severe HIVES, Uncoded 06/22/24 04:48 SWELLING General Stated Complaint: FlankPain ISRAEL: 3 Review of Systems All systems reviewed & are unremarkable except as noted in HPI and below Exam Narrative Exam Narrative: 1.Const: Well-nourished, Well-developed, appearing stated age 2.Eyes: PERRL, no conjunctival injection, and symmetrical lids. 3.ENT: Atraumatic external nose and ears. Moist MM. Neck: Symmetric, trachea midline, No thyromegaly. 4.CVS: +S1/S2, No murmurs or gallops. Peripheral pulses 2+ and equal in all extremities. Brisk capillary refill in all extremities. 5.RESP: Unlabored respiratory effort. Clear to auscultation bilaterally. No wheezes rales or rhonchi 6.GI: Soft, Nontender/Nondistended, No hepatosplenomegaly. No guarding or rebound. 7.MSK: Normocephalic/Atraumatic, Extremities w/o deformity or ttp No cyanosis or clubbing, Normal movement of all extremities 8.Skin: Warm, Dry. No rashes or lesions. 9.Neuro: financial services agent II-XII grossly intact. Sensation grossly intact, no focal neurologic deficits. 10.Psych: (AAO) x3. Appropriate mood and affect Course Vital Signs Vital signs: Vital Signs Temperature 36.6 C 06/22/24 04:04 Pulse 85 06/22/24 04:04 Respiratory Rate 20 06/22/24 04:04 Blood Pressure 155/92 H 06/22/24 04:04 Pulse Oximetry 100 06/22/24 04:04 Temperature 36.6 C 06/22/24 04:04 Temperature Source Temporal Artery Scan 06/22/24 04:04 Pulse 85 06/22/24 04:04 Respiratory Rate 20 06/22/24 04:04 Respiratory Effort Normal 06/22/24 04:12 Blood Pressure 155/92 H 06/22/24 04:04 Blood Pressure Position Sitting 06/22/24 04:04 Pulse Oximetry 100 06/22/24 04:04 Pain Level 3 06/22/24 04:04 Lab/Test Results Lab/Test Results: Laboratory Tests Range/Units 06/22/24 04:23 WBC (4.4-10.8) 10^3/uL 16.49 H RBC (3.93-5.22) 10^6/uL 4.89 Hgb (11.2-15.7) g/dL 14.2 Hct (36.0-46.0) % 42.4 MCV (80-95) fL 87 MCH (27.0-33.0) pg 29.0 MCHC (32.0-36.0) % 33.5 RDW (11.7-14.6) % 12.9 Plt Count (130-400) 10^3/uL 311 MPV (8.0-11.0) fL 10.2 Immature Gran % % 0.4 Neutrophils % % 75.3 Lymphocytes % % 17.6 Monocytes % % 5.5 Eosinophils % % 0.7 Basophils % % 0.5 Nucleated RBC % (0.0-0.3) % 0.0 Absolute Neutrophils (1.2-6.7) 10^3/uL 12.42 H Absolute Lymphocytes (1.2-3.4) 10^3/uL 2.90 Absolute Monocytes (0.1-0.8) 10^3/uL 0.91 H Absolute Eosinophils (0.0-0.7) 10^3/uL 0.12 Absolute Basophils (0.0-0.2) 10^3/uL 0.08 Sodium Cancelled Potassium Cancelled Chloride Cancelled Carbon Dioxide Cancelled Anion Gap Cancelled BUN Cancelled Creatinine Cancelled Est GFR (CKD-EPI 2020) Cancelled Glucose Cancelled Calcium Cancelled Total Bilirubin Cancelled AST Cancelled ALT Cancelled Alkaline Phosphatase Cancelled Total Protein Cancelled Albumin Cancelled POC- Test(urine) Negative Medical Decision Making This is a very pleasant 48-year-old female with a past medical history of multiple kidney stones, who presents today for evaluation of left flank pain. Patient has required previous lithotripsy and stenting in the past, and is managed by Dr. Cruz. Patient states that yesterday she developed some mild left-sided flank pain. She did take some NSAID therapy which mildly improved her symptoms. She came in tonight because of symptom persistence. She denies fever or chills. She denies any amanda hematuria. She denies vomiting but does admit to nausea. She denies any chest pain or shortness of breath. Pain is localized in the left flank. No other complaints at this time. No other modifying factors. She denies fever or chills. Exam demonstrates well-appearing female, no signs of an acute surgical abdomen. No flank or CVA tenderness. And for that matter no significant abdominal tenderness. Patient's vital signs are stable. Differential is highest for urolithiasis, symptoms appear clinically inconsistent for diverticulitis. Urinary infection is on the differential, but less likely without any fever or chills. We discussed risk and benefits of CT imaging versus x-ray and bedside ultrasound. At this time patient would like to start with x-ray and ultrasound to see if we could hold off on potential CT radiation exposure. Will treat with Toradol Lonnie Mab and Flomax. Will monitor closely rehydrate and reassess. Ultrasound shows mild hydronephrosis, x-ray shows bilateral kidney stones. Laboratory workup has returned patient has mild white count of 16, no bandemia though. She is afebrile. No evidence of sepsis. Labs stable, creatinine normal, urinalysis shows no evidence of acute infection. Initial UA today is negative for nitrates, leuk esterase, or other abnormalities. Patient's pain is completely resolved and she feels well. Patient would like to go home. Discussed risks and benefits of further CT imaging, and at this time through shared decision-making process weighing the risk and benefits and understanding this, patient has decided to hold off on CT imaging for the time being. She will follow-up closely with Dr. Cruz. Will recommend prompt return if she has any worsening of her symptoms or return of her symptoms. Recommend continued Flomax and NSAIDs and hydration as needed. At this time symptoms appear notably clinically inconsistent with septic stone, pyelonephritis, UTI, obstructing stone, diverticulitis, appendicitis or other acute emergent abdominal etiology. I have extensively reviewed the treatment plan and discharge instructions with the patient. I have addressed all patient concerns at this time. The patient was made aware of what symptoms to monitor for that would warrant a return to the emergency department. Discussed the plan with the patient, they demonstrate verbal understanding and agreement with our assessment and plan at this time. The documentation in this chart was dictated using [employer] dictation software. Please excuse any dictation errors. FINDINGS: Gastrointestinal tract: Normal. No bowel dilation. Intraperitoneal space: Normal. No free air. Organs: There is a 4 mm calcification suspected in the medial left flank at the level of L2-L3 . There are punctate calcifications suspected projecting over right kidney. Vasculature: Multiple calcification in the left side of the pelvis, probably due to the phleboliths. Bones/joints: Unremarkable for age. IMPRESSION: 1. Bilateral nephrolithiasis suspected. There is a 4 mm calcification suspected in the left side of the line which may be a calcification in the proximal left ureter versus lower pole kidney. 2. Nonobstructive bowel gas pattern. Thank you for allowing us to participate in the care of your patient. Dictated and Authenticated by: Shemar Cantrell DO 06/22/2024 6:21 AM Eastern Time ([place] & [place]) Quality:SDOH Health Related Social Needs: No Data to Display PFSH All Active Problems (Updated 06/22/24 @ 07:12 by Sven Mayberry DO) Left flank pain (Acute) Encounter for sterilization (Acute 11/15/13) Renal calculi (Chronic Unknown) Obstructive uropathy (Acute) Pyelonephritis of left kidney (Acute) Hypoglycemia (Acute) DVT prophylaxis (Acute) Discharge planning issues (Acute) Bilateral hydronephrosis (Acute) Calculus of proximal right ureter (Acute) Medical History ADHD Gestational diabetes mellitus (09/03/13) GTT: 74, 172, 171, 163 on 09/03 Supervision of other normal (06/03/13) Surgical History Previous section H/O lithotripsy History of renal stent Status post repeat low transverse section (11/15/13) Social History Smoking/Tobacco Use Status: Former Tobacco Use Quit Date: 05/03/19 Smoking risk assessment performed?: Yes Alcohol Intake: current Alcohol Intake frequency: a few times a month Alcohol type: beer, wine and hard liquor Drug use: Occasionally Substance use type: marijuana Current gender identity: female Do you feel safe at home: Yes Do you feel safe in your relationship?: Yes POCUS Exam (ED) Limited Retroperitoneal(Renal)Exam DATE OF EXAM: 06/22/24 TIME OF EXAM: 05:12 PROVIDER THAT PERFORMED THE STUDY: Sven Mayberry IS THIS A REPEAT EXAM DURING THIS ENCOUNTER: No REASON FOR EXAM: Flank pain/left side VISUALIZED STRUCTURES: Left kidney and Right kidney PERTINENT FINDINGS/IMPRESSION: Hydronephrosis present (Hydronephrosis worse by about 1 cm on the left compared to the right. However there is bilateral hydro noted.) bilaterally Exam complete
[2024-06-22] MEDS: Tamsulosin 0.4 MG CAPCR 0.8 MG PO (04:47)
[2024-06-22 05:13] LABS: ALT 48 U/L (14-59); AST 38 U/L (15-37); Albumin 3.3 g/dL (3.4-5.0); Alkaline Phosphatase 65 U/L (46-116); BUN 25 mg/dL (7-18); Bilirubin, Total 0.49 mg/dL (0.2-1.0); CREATININE 0.9 mg/dL (0.55-1.02); Calcium 8.6 mg/dL (8.5-10.1); Chloride 98 mmol/L (98-107); Estimated GFR 79.35 (mL/min/1.73m2); Glucose 121 mg/dL (74-106); Potassium 3.2 mmol/L (3.5-5.1); Sodium 136 mmol/L (136-145); Total Protein 6.9 g/dL (6.4-8.2)
[2024-06-22 05:19] LABS: Bilirubin Negative (Negative); Blood Negative (Negative); Clarity Clear (Clear); Glucose Negative (Negative); Ketones Negative (Negative); Leukocyte Esterase Negative (Negative); Nitrite Negative (Negative); Specific Gravity 1.015 (1.005-1.025); Urobilinogen 0.2 mg/dL (Up to 0.2); pH 6.5 (5-8)
--- NOTE | 2024-06-22 06:22 | DI.VRAD_ITS ---
PROCEDURE INFORMATION: Exam: XR Abdomen Exam date and time: 06/22/2024 5:06 AM Age: 48 years old Clinical indication: Abdominal pain; Flank; Left; Additional info: Left flank pain, eval for stone TECHNIQUE: Imaging protocol: Radiologic exam of the abdomen. Views: 2 Views. Upright and supine views. COMPARISON: CT ABDOMEN PELVIS WO 12/16/2022 8:12 AM FINDINGS: Gastrointestinal tract: Normal. No bowel dilation. Intraperitoneal space: Normal. No free air. Organs: There is a 4 mm calcification suspected in the medial left flank at the level of L2-L3 . There are punctate calcifications suspected projecting over right kidney. Vasculature: Multiple calcification in the left side of the pelvis, probably due to the phleboliths. Bones/joints: Unremarkable for age. IMPRESSION: 1. Bilateral nephrolithiasis suspected. There is a 4 mm calcification suspected in the left side of the line which may be a calcification in the proximal left ureter versus lower pole kidney. 2. Nonobstructive bowel gas pattern. Dictated and Authenticated by: Shemar Cantrell MD. Ordering:SUSAN Machuca MD
[2024-06-22] MEDS: Ondansetron O.D.T. 4 MG TABEF, 3 TABS/BTL PO (07:45)
--- NOTE | 2024-06-22 16:33 | NUR.NOTE ---
Referral faxed to Urology for follow up to Kidney Stones on Monday.
== END 2024-06-22 08:02 | disposition home or self-care (01) ==
PROVIDERS: Emergency Provider Student in an Organized Health Care Education/Training Program; PCP Family Medicine
DX: R10.9 Unspecified abdominal pain (principal); Z87.442 Personal history of urinary calculi; Z87.891 Personal history of nicotine dependence
CPT/HCPCS: 36415; 76775; 80053; 81025; 96361; 96374; 96375; 99285; 74019; 81003; 85025; 99284; J0131; J1885

== ENCOUNTER 2024-08-26 02:01 | Outpatient (CLI) | payer MEDICAID, SELFPAY ==
--- NOTE | 2024-08-26 13:02 | DI.MAMMO_ITS ---
Exam(s) MAMMO SCREENING EXAM: MAMMO SCREENING CLINICAL HISTORY: SCREENING, Z12.31 TECHNIQUE: Mammograms were interpreted according to the usual protocol including computer analysis w [employer] CAD system, tomosynthesis and C-view imaging. COMPARISON: No exams were available for comparison. Baseline examination FINDINGS: The breasts are composed of scattered fibroglandular densities, Breast Density category B. No suspicious masses or suspicious microcalcifications are seen. No skin thickening or abnormal axillary lymph nodes are seen. IMPRESSION: BI-RADS Category 1, Negative mammogram Yearly screening mammography is recommended. Breast Density - Category B, scattered fibroglandular densities. A negative radiographic report should not delay biopsy if a dominant or clinically suspicious mass is present. Up to ten percent of cancers are not identified on mammography. A negative report may reinforce clinical impression. Adenosis and dense breasts may obscure an underlying neoplasm. False positive reports average 6 to 10%. Patient will receive a letter notifying them of these results.
== END 2024-08-26 02:21 ==
PROVIDERS: PCP Family Medicine; Visit Provider Family Medicine
DX: Z12.31 Encounter for screening mammogram for malignant neoplasm of breast (principal)
CPT/HCPCS: 77063; 77067

== ENCOUNTER 2024-11-07 15:21 | Outpatient (REF) | payer MEDICAID, SELFPAY ==
--- OUTSIDE RECORDS SUMMARY | 2024-11-07 15:23 | XMS_ITS | Encounter Summary ---
Author Organization [facility] Address [address] [place] [address] Care Team Providers Care Paving Crew Foreman Name Role Phone Unknown, Provider Primary Care Provider Unava ilable Encounter Details Date Type Department Care Team (Latest Contact Info) Description 11/15/2013 15:11 EST - 11/15/2013 23:59 EST Hospital Encounter [address] [address] Unknown, Provider, Discharge Disposition: Home or Self Care Social History Tobacco Use Types Packs/Day Years Used Date Smoking Tobacco: Never Assessed Comments Unknown Sex and Gender Information Value Date Recorded Sex Assigned at Not on file Legal Sex Female 17:33 EST Gender Identity Not on file Sexual Orientation Not on file documented as of this encounter Discharge Disposition Disposition Code Departure Means Destination Home or Self Half-Way documented in this encounter Plan of Treatment Not on file documented as of this encounter Visit Diagnoses Not on filedocumented in this encounter Care Teams Paving Crew Foreman Relationship Specialty Start Date End Date Unknown, Provider, PCP - General 05/13/10 11/17/13 documented as of this encounter
--- OUTSIDE RECORDS SUMMARY | 2024-11-07 15:23 | XMS_ITS | Clinical Summary ---
Author Organization [facility] Address [address] [place] [address] Care Team Providers Care Rag Cutting Machine Feeder Name Role Phone Christel Hadley MD Primary Care Provider [phone] Social History Tobacco Use Types Packs/Day Years [...] - 19+ 3-dose series) 12/28 COVID-19 Vaccine ( season) 2024 Care Teams Rag Cutting Machine Feeder Relationship Specialty Start Date End Date Christel Hadley MD [address] [place] [address] PCP - General 11/18/13
--- OUTSIDE RECORDS SUMMARY | 2024-11-07 15:23 | XMS_ITS | Encounter Summary ---
Author Organization [facility] Address [address] [place] [address] Care Team Providers Care Fire Dispatcher Name Role Phone Christel Hadley MD Primary Care Provider [phone] Encounter Details Date Type Department Care Team (Late st Contact Info) Description 06/05/2020 Lab Requisition [facility] Pathology & Laboratory Medicine - [facility] [address] [place], [place] [id number] Outr Resulting Lab, Provider Social History Tobacco [...] rt-PCR Result NEGATIVE Negative 06/07/2020 11:09 EDT [facility] Comment: 2019-novel Coronavirus (2019-nCoV) not [...] in accordance with CLIA regulations, College [employer] (CAP) guidelines (Feb 13, 2020), and FDA guidance (Jan 25, 2020). This test is only for use under the Food and Drug Administration's Emergency Use Authorization. Swab ENTIRE NASOPHARYNX / Unknown 06/05/2020 10:50 EDT 06/05/2020 15:39 EDT us Provider Outr Resulting Lab MICROBIOLOGY - GENER AL ORDERABLES Final Result [facility] [place], [place] * COVID-19 TESTING (06/05/2020 10:50 EDT) COVID-19 rt-PCR Result NEGATIVE Negative 06/07/2020 12:19 EDT [facility] Comment: 2019-novel Coronavirus (2019-nCoV) not detected [...] in accordance with CLIA regulations, College of [employer]ologists (CAP) guidelines (Feb 13, 2020), and FDA guidance (Jan 25, 2020). This test is only for use under the Food and Drug Administration's Emergency Use Authorization. Performing Lab [facility] 06/07/2020 12:19 EDT [facility] Swab 06/05/2020 10:5 0 EDT 06/05/2020 15:39 EDT us Provider Outr Resulting Lab MICROBIOLOGY - GENER AL ORDERABLES Final Result [facility] [address] [place] [address] [facility] [place] [place] documented in this encounter Visit Diagnoses Not on filedocumented in this encounter Additional Health Concerns Infection Onset Date Last Indicated Resolved Time R/O COVID-19 06/05/2020 06/05/2020 06/10/2020 22:1 5 EDT documented as of this encounter Care Teams Fire Dispatcher Relationship Specialty Start Date End Date Christel Hadley MD [address] [place] [address] PCP - General 11/18/13 documented as of this encounter
--- OUTSIDE RECORDS SUMMARY | 2024-11-07 15:23 | XMS_ITS | Encounter Summary ---
Author Organization [facility] Address [address] [place] [address] Care Team Providers Care Multimedia Artist Name Role Phone Unknown, Provider Primary Care Provider Christel Jenkins MD Primary Care Provider [phone] Encounter Details Date Type Department Care Team (Late st Contact Info) Description 01/27/2010 Historical Results Only [facility] - Main [address] [address] Deonte Friend MD [address] [place] [id number] Social History Tobacco Use Types Packs/Day Years [...] (01/27/2010) 01/27/2010 01/27/2010 14: 35 EST Narrative [facility] - 01/29/2010 14:36 EST ----- ------- Name: BERTA SONI V ?: [birth year] ?Age/Sex: 43/F ?Unit#: [id number] ? Loc: SDS ? Status: DEP SDC ?? Reg Date: 01/27/10 ? Pt.Phone Number: ? ----- ------- Specimen: [id number] ?STATUS: SOUT ?Spec Date:01/27/10 ? Physician Copies: ?Deonte Friend ?? Tissues: A ?? Urinary Tract (KIDNEY STONE) ? CPT: 42028 ?? Units: ??1 ?FINAL DIAGNOSIS ? Gross [...] confirmed the above diagnosis. Test Performed by [facility], [address] [place] [address] Patient Access Associate: Jennifer Durand MD PHD ----- ------- us Deonte Friend MD PATHOLOGY ORDERABLES Final R esult [facility] documented in this encounter Visit Diagnoses Not on filedocumented in this encounter Care Teams Multimedia Artist Relationship Specialty Start Date End Date Unknown, Provider, PCP - General 05/13/10 11/17/13 Christel Hadley MD [address] [place] [id number] PCP - General 11/18/13 documented as of this encounter
--- OUTSIDE RECORDS SUMMARY | 2024-11-07 15:23 | XMS_ITS | Encounter Summary ---
Author Organization [facility] Address [address] [place] [address] Care Team Providers Care Marketing Automation Manager Name Role Phone Christel Hadley MD Primary Care Provider [phone] Encounter Details Date Type Department Care Team (Late st Contact Info) Description 09/19/2019 Results Only [facility] [phone] Sven Mayberry DO [address] [place] [address] Social History Tobacco Use Types [...] EDT) Result [facility] 09/28/2019 12:47 EDT [facility] Result Susceptibility not routinely performed 09/28/2019 12:47 EDT [facility] BLOOD SPECIMEN / Unknown 09/19/2019 17:10 EDT 09/26/2019 18:22 EDT Comment:[place] plate(s) submit karrie for interpretation~BAP us Sven Mayberry DO MICROBIOLOGY - GENERAL O RDERABLES Final Result [facility] [address] [place] [address] documented in this encounter Visit Diagnoses Not on filedocumented in this encounter Care Teams Marketing Automation Manager Relationship Specialty Start Date End Date Christel Hadley MD [address] [place] [address] PCP - General 11/18/13 documented as of this encounter
--- OUTSIDE RECORDS SUMMARY | 2024-11-07 15:23 | XMS_ITS | Encounter Summary ---
Author Organization [facility] Address [address] [place] [address] Care Team Providers Care Chin Strap Sewer Name Role Phone Christel Hadley MD Primary Care Provider [phone] Encounter Details Date Type Department Care Team (Late st Contact Info) Description 05/22/2020 Lab Requisition [facility] Pathology & Laboratory Medicine - [facility] [address] [place], [place] [address] Outr Resulting Lab, Provider Social History Tobacco [...] Unknown 05/22/2020 11:15 EDT 05/22/2020 15:44 EDT us Provider Outr Resulting Lab MICROBIOLOGY - GENER AL ORDERABLES Final Result [facility] [address] [place] [address] * COVID-19 TESTING (05/22/2020 11:15 EDT) COVID-19 rt-PCR Result Negative Negative 05/22/2020 22:23 EDT [facility] Comment: This test has not [...] history, and epidemiological information. Performed on the [employer] Fusion instrument Performing Lab [place] [facility] 05/22/2020 22:23 EDT [facility] Swab 05/22/2020 11:1 5 EDT 05/22/2020 15:44 EDT us Provider Outr Resulting Lab MICROBIOLOGY - GENER AL ORDERABLES Final Result [facility] [address] [place] [address] documented in this encounter Visit Diagnoses Not on filedocumented in this encounter Additional Health Concerns Infection Onset Date Last Indicated Resolved Time R/O COVID-19 06/05/2020 06/05/2020 06/10/2020 22:1 5 EDT documented as of this encounter Care Teams Chin Strap Sewer Relationship Specialty Start Date End Date Christel Hadley MD [address] [place] [address] PCP - General 11/18/13 documented as of this encounter
--- OUTSIDE RECORDS SUMMARY | 2024-11-07 15:23 | XMS_ITS | Encounter Summary ---
Author Organization [facility] Address [address] [place] [address] Care Team Providers Care Electronic Instrument Trades Worker Name Role Phone Unknown, Provider Primary Care Provider Unava ilable Encounter Details Date Type Department Care Team (Late st Contact Info) Description 05/12/2010 Results Only [facility] - [facility] ([facility]) [address] [place] [address] [phone] Anu Ramachandran, SHIRA [address] [place] [address] Social History Tobacco Use Types Packs/Day Years [...] 05/12/2010 8:40 EDT 05/19/2010 8:40 EDT Anu SILVA MICROBIOLOGY - GENERAL OR DERABLES Final Result [facility] [address] [place] [id number] * CYTOPATHOLOGY (05/12/2010 0:00 EDT) Pathology Report: CYTOPATHOLOGY REPORT ? Reports generated via electronic interface contain original data; ? however they are lacking the format of the original report. ? Caution should be taken when reading/interpreti ng unformatted reports. ? Name: ? BERTA SONI V ? Accession #: ? [id number] ? : ? 1975 (Age: 34) ??F [...] Report ? [facility] 05/12/2010 05/13/2010 us Anu SILVA PATHOLOGY ORDERABLES Gema l Result [facility] [address] [place] [address] documented in this encounter Visit Diagnoses Not on filedocumented in this encounter Care Teams Electronic Instrument Trades Worker Relationship Specialty Start Date End Date Unknown, Provider, PCP - General 05/13/10 11/17/13 documented as of this encounter
--- OUTSIDE RECORDS SUMMARY | 2024-11-07 15:23 | XMS_ITS | Clinical Summary ---
[place] [address] Care Team Providers Care Market Development Analyst Name Role Phone Unavailable Primary Care Provider Unavailabl e Social History Tobacco Use Types Packs/Day Years Used Date Smoking Tobacco: Never Assessed Sex and Gender Information Value Date Recorded Sex Assigned at Not on file Gender Identity Not on file Sexual Orientation Not on file Plan of Treatment Upcoming Encounters Date Type Department Care Team (Late st Contact Info) Description 01/08/2025 11:20 AM EST Office Visit Dermatology at [address] [place] [address] Health Maintenance Due Date Last Done Comments CT Colonography 1975 Colonoscopy 1975 Colorectal Cancer Screening 1975 FIT DNA 1975 FIT 1975 Sigmoidoscopy (10 year) with FIT yearly 1975 Sigmoidoscopy 1975 HIV screen 1994 Hepatitis C Screening 1994 Hepatitis B vaccine (0-59 yrs) (1) 1995 Tetanus/Diphtheria/Pertussis Vaccines (1 - Tdap) 12/28 HPV test 2006 PAP Smear 2006 Breast Cancer Share Decision Needed 2016 Breast Cancer screening 2016 Covid-19 Vaccine (2023-25 season) 2024 Influenza (Flu) vaccine (1 o f 1 - Influenza standard series) 07/28/2024
--- OUTSIDE RECORDS SUMMARY | 2024-11-07 15:23 | XMS_ITS | Referral Summary ---
Author Organization [facility] Address [address] [place] [address] Care Team Providers Care Operations Dispatcher Name Role Phone Christel Hadley MD Primary Care Provider [phone] Social History Tobacco Use Types Packs/Day Years Used Date Smoking Tobacco: Never Assessed Comments Unknown Sex and Gender Information Value Date Recorded Sex Assigned at Not on file Legal Sex Female 17:33 EST Gender Identity Not on file Sexual Orientation Not on file Plan of Treatment Not on file Care Teams Operations Dispatcher Relationship Specialty Start Date End Date Christel Hadley MD [address] [place] [phone] PCP - General 11/18/13
--- OUTSIDE RECORDS SUMMARY | 2024-11-07 15:23 | XMS_ITS | Encounter Summary ---
Author Organization [facility] Address [address] [place] [address] Care Team Providers Care Field Sales Specialist Name Role Phone Unknown, Provider Primary Care Provider Unava ilable Encounter Details Date Type Department Care Team (Late st Contact Info) Description 05/06/2013 Results Only [facility] [phone] Ander Mora, [facility] [address] [facility] [address] [place] [address] Social History Tobacco Use Types Packs/Day Years [...] BERTA SONI V ? Accession #: ? [id number] ? : ? 1975 (Age: 37) ??F [...] and electronically signed by: ? Danette Cope, CT(ASCP)(IAC) ? Report ??Date: 05/14/2013 16:22 HPV with Pap Test ? Date Ordered: ? 05/14/2013 ? Status: ?? Signed Out ?Date Complete: ? 05/16/2013 ? By: ??System Interface ? Date Reported: ? 05/16/2013 ? Interpretation RESULT: Negative for HPV. No E6 or E7 mRNA is detected from HPV types 16,18,31,33,35, 39,45,51,52,56,58, 59,66, and 68 by java software architect mediated amplification. Comments Document reviewed and electronically signed by: ? System Interface ? Report date: 05/16/2013 By the signature above, the attending physician certifies that he/she has personally conducted a gross and/or microscopic examination of the described specimens and rendered or confirmed the above diagnosis. End of Report [facility] 05/06/2013 05/07/2013 us Ander Mora CNM PATHOLOGY ORDERABLES Final Re sult [facility] [address] [place] [address] documented in this encounter Visit Diagnoses Not on filedocumented in this encounter Care Teams Field Sales Specialist Relationship Specialty Start Date End Date Unknown, Provider, PCP - General 05/13/10 11/17/13 documented as of this encounter
--- OUTSIDE RECORDS SUMMARY | 2024-11-07 15:23 | XMS_ITS | Encounter Summary ---
Author Organization [facility] Address [address] [place] [address] Care Team Providers Care Cpht Name Role Phone Unknown, Provider Primary Care Provider Unava ilable Encounter Details Date Type Department Care Team (Late st Contact Info) Description 03/28/2006 Results Only [facility] [address] [place] [address] [place], [place] [phone] Social History Tobacco Use Types Packs/Day Years [...] BERTA SONI V ? Accession #: ? [id number] : ? 1975 (Age: 30) ??F ?Collect Date: ? 03/28/2006 Location: ? [facility] ? Receive Date: ? 03/29/2006 Provider: ?BERTA VALADEZ CNM Copy to: ? Specimen/Source: ?ThinPrep Pap Test, Cervix/Endocervix, processed on [employer] ThinPrep Imaging System, with manual evaluation Last [...] Date: ??03/30/2006 14:23 End of Report [facility] 03/28/2006 03/29/2006 us Berta Valadez CNM PATHOLOGY ORDERABLES Final Res ult Performing Organization Address City/State/[facility] Co de Phone Number [facility] [address] [place] [address] documented in this encounter Visit Diagnoses Not on filedocumented in this encounter Care Teams Cpht Relationship Specialty Start Date End Date Unknown, Provider, PCP - General 05/13/10 11/17/13 documented as of this encounter
--- OUTSIDE RECORDS SUMMARY | 2024-11-07 15:23 | XMS_ITS | Encounter Summary ---
Author Organization [facility] Address [address] [place] [address] Care Team Providers Care Rn Care Transition Name Role Phone Unknown, Provider Primary Care Provider Christel Jenkins MD Primary Care Provider [phone] Encounter Details Date Type Department Care Team (Late st Contact Info) Description 11/15/2013 Results Only [facility] [phone] Tyler Harrison MD [address] [place] [phone] Social History Tobacco Use Types Packs/Day Years [...] BERTA SONI V ? Accession #: ? [id number] ? : ? 1975 (Age: 37) ??F ? Collect Date: ? 11/15/2013 ? Location: ? [facility] ? Receive Date: ? 11/15/2013 ? Provider: TYLER HARRISON MD Copy to: CHRISTEL ORELLANA MD ? Final Pathologic Diagnosis: A. FALLOPIAN [...] ??Sectioning reveals a central pinpoint lumen. Two electronics parts sales representative cross sections are submitted as A1. B. ? Received in formalin labelled with proper patient identification (initials A, S) and #2 Lt portion fallopian tube is a tubular tissue (2.0 cm in length and 0.5 cm in diameter). ??The serosal surface is generally smooth and graves. ??Sectioning reveals a central pinpoint lumen. Two electronics parts sales representative cross sections are submitted as B1. Ross Webb 11/18/2013 12:32 PM End of Report [facility] 11/15/2013 9:28 EST 11/15/2013 9:28 EST us Tyler Harrison MD PATHOLOGY ORDERABLES Final Re sult [facility] [address] [place] [address] documented in this encounter Visit Diagnoses Not on filedocumented in this encounter Care Teams Rn Care Transition Relationship Specialty Start Date End Date Unknown, Provider, PCP - General 05/13/10 11/17/13 Christel Orellana MD [address] [place] [address] PCP - General 11/18/13 documented as of this encounter
--- OUTSIDE RECORDS SUMMARY | 2024-11-07 15:23 | XMS_ITS | Encounter Summary ---
Author Organization [facility] Address [address] [place] [address] Care Team Providers Care Plastic Fabricator Name Role Phone Unknown, Provider Primary Care Provider Unava ilable Encounter Details Date Type Department Care Team (Late st Contact Info) Description 11/16/2013 Results Only [facility] - [address] [address] Unknown, Provider, Social History Tobacco Use Types [...] TEST (11/16/2013 18:45 EST) Screen Test NEGATIVE [facility] 11/16/2013 18:4 5 EST us Provider Unknown MD BLOOD BANK TESTS Final Resul t [facility] [address] [facility] [address] documented in this encounter Visit Diagnoses Not on filedocumented in this encounter Care Teams Plastic Fabricator Relationship Specialty Start Date End Date Unknown, Provider, PCP - General 05/13/10 11/17/13 documented as of this encounter
--- OUTSIDE RECORDS SUMMARY | 2024-11-07 15:23 | XMS_ITS | Encounter Summary ---
Author Organization [facility] Address [address] [place] [address] Care Team Providers Care Water Systems Engineer Name Role Phone Christel Hadley MD Primary Care Provider [phone] Encounter Details Date Type Department Care Team (Latest Contact Info) Description 02/17/2020 Lab Requisition [facility] Pathology & Laboratory Medicine - [facility] [address] [place] [address] Christel Hadley MD [address] [place] [address] Encounter for gynecological examination (general) (routine) without [...] types, PCR Negative Negative 02/24/2020 14:38 EDT [facility] Comment:No E6 or E7 mRNA is detected from HPV types 16,18,31,33,35,39,45,51,52,56,58,59,66, and 68 by brickmason contractor mediated amplification. Papanicolaou smear specimen (specimen) CERVIX UTERI STRUCTURE / Unknown 02/14/2020 10:30 EDT 02/21/2020 10:16 EDT Christel Hadley MD MICROBIOLOGY - GENERAL ORDERABL ES Final Result [facility] [address] [place] [phone] * PAP TEST (02/14/2020 10:30 EDT) Specimens A. Cervix and/or Endocervix, ThinPrep Imaging System with Manual Evaluation 02/24/2020 14:38 T [facility] Specimen Adequacy Satisfactory for Evaluation - transformation zone component present 02/24/2020 14:38 [facility] General Categorization Negative for intraepithelial lesion or malignancy 02/24/2020 14:38 T [facility] Attestation . 02/24/2020 14:38 [facility] at 1438 Clinical History NONE 02/24/20 14:38 T [facility] HPV The result for the Human Papillomavirus (HPV) Detection-High Risk Types is Negative. No E6 or E7 mRNA is detected from HPV types 16,18,31,33,35,39 ,45,51,52,56,58,5 9,66, and 68 by brickmason contractor mediated amplification.Maddie ting was performed on specimen [id number] and was resulted on 02/24/2020 1435 EDT by FAH[facility], LAB INSTRUMENT RESULTS IN 02/24/2020 14:38 EDT [facility] Scanned Images 02/24/2020 14:38 T [facility] Papanicolaou smear specimen (specimen) CERVIX UTERI STRUCTURE / Unknown 02/14/2020 10:30 EDT 02/17/2020 8:52 EDT Christel Hadley MD PATHOLOGY ORDERABLES Final Resu lt [facility] [address] [place] [address] documented in this encounter Visit Diagnoses Diagnosis Encounter for gynecological examination (general) (routine) without abnormal findings documented in this encounter Additional Health Concerns Infection Onset Date Last Indicated Resolved Time R/O COVID-19 06/05/2020 06/05/2020 06/10/2020 22:1 5 EDT documented as of this encounter Care Teams Water Systems Engineer Relationship Specialty Start Date End Date Christel Hadley MD [address] [place] [id number] PCP - General 11/18/13 documented as of this encounter
[2024-11-07 15:32] LABS: Anion Gap 11.8 mmol/L (3-11); BUN 20 mg/dL (7-18); CO2 26.2 mmol/L (21.0-32.0); CREATININE 0.8 mg/dL (0.55-1.02); Calcium 9.8 mg/dL (8.5-10.1); Chloride 99 mmol/L (98-107); Glucose 92 mg/dL (74-106); Potassium 3.6 mmol/L (3.5-5.1); Sodium 137 mmol/L (136-145)
== END 2024-11-07 15:22 | disposition home or self-care (01) ==
LOC: NCHCN 15:21
PROVIDERS: PCP Family Medicine; Visit Provider Family Medicine
DX: I10 Essential (primary) hypertension (principal)
CPT/HCPCS: 80048

== ENCOUNTER 2025-02-05 03:02 | Outpatient (CLI) | payer MEDICAID, SELFPAY ==
--- NOTE | 2025-02-05 06:30 | DI.US_ITS ---
Exam(s) US RENAL EXAM: US RENAL CLINICAL HISTORY: Monitoring RENAL CALCULI,N20.0. TECHNIQUE: Tabares scale, color and spectral Doppler were used. COMPARISON: US US RENAL from 07/19/2023 FINDINGS: Renal size in cm: Right: 10.7. Left: 10.0. Echogenicity: Normal. Hydronephrosis: There is mild prominence of the renal pelves bilaterally. Cyst or mass: No. Nephrolithiasis: There are bilateral echogenic foci in the kidneys. There are 2 on the left, the lar gest measuring 6 mm. There is a 4 mm echogenic focus in the right kidney. Other findings: Note is made of fatty infiltration of the liver. Bladder:Normal. Ureteral jets: Right: Visualized and unremarkable. Left: Visualized and unremarkable. Prevoid vol:137 cc Postvoid vol:0 cc Renal color flow: Symmetric and within normal limits. IMPRESSION: 1. Bilateral nephrolithiasis. 2. Mild prominence of the renal pelves bilaterally which may represent mild hydronephrosis. Follow-u p as clinically appropriate. DATA REPOSITORY:
== END 2025-02-05 03:22 ==
PROVIDERS: PCP Family Medicine; Visit Provider Nurse Practitioner Gerontology
DX: N20.0 Calculus of kidney (principal)
CPT/HCPCS: 76770

== ENCOUNTER 2025-08-11 00:05 | Outpatient (CLI) | payer MEDICAID, SELFPAY ==
--- NOTE | 2025-08-11 06:00 | DI.US_ITS ---
Exam(s) US RENAL EXAM: US RENAL CLINICAL HISTORY: monitor known stones,renal calculi,n20.0. TECHNIQUE: Tabares scale, color and spectral Doppler were used. COMPARISON: US US RENAL from 02/05/2025 FINDINGS: Renal size in cm: Right: 10.6. Left: 9.7. Echogenicity: Normal. Hydronephrosis: There is stable mild prominence of the renal pelves bilaterally. Cyst or mass: No. Nephrolithiasis: Bilateral nephrolithiasis. The largest stones measure 4 mm. Other findings: None. Bladder:The bladder wall was incompletely distended limiting evaluation. The 4 mm bladder wall thickness likely is secondary to incomplete bladder filling. Ureteral jets: Right: Visualized and unremarkable. Left: Not visualized on this examination. Prevoid vol:16 cc Postvoid vol:3 cc Renal color flow: Symmetric and within normal limits. IMPRESSION: Stable examination with bilateral nephrolithiasis and prominence of the renal pelves bilaterally. DATA REPOSITORY:
== END 2025-08-11 00:25 ==
LOC: DI 00:06
PROVIDERS: PCP Family Medicine; Visit Provider Urology
DX: N20.0 Calculus of kidney (principal)
CPT/HCPCS: 76770